=== PATIENT | female | born 1960 | race Caucasian/White ===

== ENCOUNTER 2021-05-13 08:04 | Emergency (ER) | payer MEDICARE, OTHER, SELFPAY ==
[2021-05-13 08:08] VITALS: BP 110/73; PULSE 105; RESP 16; TEMP 37.1; O2SAT 96; BMI 28.5
--- NOTE | 2021-05-13 08:24 | ED_ITS ---
HPI - COVID General: Chief Complaint: COVID symptoms Stated Complaint: chest pain, headache, vomiting. Time Seen by Provider: 05/13/21 08:24 Triage information: Has fever, cough or shortness of breath . No known COVID + exposure last 14 days History of Present Illness: HPI Narrative: Ms. Barnes is a 60-year-old lady who presents to the emergency department due to headache and chest pain. She reports 3-day history of primarily frontal headache which is moderate to severe in intensity. Onset was gradual and she does have a history of migraine headaches. Mild associated photosensitivity and sound sensitivity. No neck pain or meningismus. Additional she has had generalized malaise which is progressively worsened. Today she had subacute onset of chest pain pressure in the middle of her chest which is moderate to severe in intensity and not improved with nitroglycerin. There is mild tingling sensation of the right arm. 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 Overall the intensity symptoms is currently moderate. Course has persisted. No other specific changes in health, exacerbating, or relieving factors identified. MD complaint: has COVID symptoms Prior covid testing: no COVID 19 common symptoms: positive fatigue, headache(s) and chest tightness Onset (ago): day(s) Severity: severe and slowly worsening Pertinent comorbid conditions: diabetes, hypertension and heart disease COVID Results: SARS-CoV-2 Antigen (Rapid) Positive (Negative) H 05/13/21 08:45 05/13/21 Review of Systems General: Reports: 10 or more systems reviewed and unremarkable except in HPI and below Const: Reports: fatigue Neuro: Reports: headache(s) PFSH ED PFSH: Medical History (Updated 05/13/21 @ 14:48 by Bandar White MD) CAD (coronary artery disease) Diabetes HLD (hyperlipidemia) HTN (hypertension) Surgical History (Updated 05/13/21 @ 08:38 by Bandar White MD) H/O exploratory laparotomy H/O: hysterectomy History of coronary artery stent placement Hx of CABG Social History (Updated 05/13/21 @ 08:39 by Bandar White MD) Smoking and tobacco status: former smoker Physical Exam Const: COMMON NORMALS: alert GENERAL APPEARANCE: cooperative, well developed and ill appearing (Somewhat) HENMT: COMMON NORMALS: normocephalic and atraumatic HEAD & SCALP: normocephalic and atraumatic THROAT: posterior oropharynx normal Eye: COMMON NORMALS: conjunctivae normal CONJUNCTIVA: Yes conjunctivae normal SCLERA: sclerae normal Neck/C-Spine: COMMON NORMALS: supple GENERAL: Yes trachea midline Resp: COMMON NORMALS: normal respiratory effort EFFORT & INSPECTION: Yes able to speak in complete sentences AUSCULTATION: rhonchi lower bilaterally and diminished lung sounds Cardio: COMMON NORMALS: regular rhythm RATE: tachycardic RHYTHM: regular rhythm GI: COMMON NORMALS: Soft to palpation PALPATION: Yes Soft to palpation and No Tenderness to palpation present (GI) PERCUSSION: normal to percussion Extremity: GENERAL: Yes normal exam except as noted and No edema Neuro: COMMON NORMALS: moves all extremities SENSORIUM/ORIENTATION: Yes alert and No Orientation impaired Psych: COMMON NORMALS: mental status grossly normal and Normal thought process present THOUGHT PROCESS: Normal thought process present Course ED course: - Patient was seen and evaluated by me at bedside - Patient placed on cardiac monitors, IV access obtained - Initial evaluation notable for somewhat ill appearance as above -Symptom treatment ordered - Labs notable for normal white blood cell count, microcytic anemia without recent baseline. Metabolic panel without acute electrolyte derangement. Delta troponin is negative. BNP minimally elevated. Procalcitonin negative. The exact etiology of the patient's chest pain is unclear, in combination with shortness of breath and other symptoms there is clinical concern for pulmonary embolism and as such D-dimer will be ordered as the patient cannot be ruled low risk by PERC criteria. D-dimer was elevated. - Imaging notable for no acute finding on chest x-ray. Head CT ordered as the patient did not have improvement with initial round of medication for headache. No acute intracranial pathology. No evidence of pulmonary embolism on CT. - Patient is Covid positive. - EKG discussed with cardiology, similar to prior - Upon serial reexamination after treatment the patient was improved with additional treatment She is not requiring supplemental oxygen. Despite discharge recorded respiratory rate and the patient was not significantly tachypneic or in respiratory distress at any time during my examination and I believe that this is likely erroneous based on monitor reading. - Based on patient history, evaluation, labs, and imaging as interpreted the most likely cause of the patient's condition is COVID-19. - The results of ED evaluation were discussed with the patient including prescriptions and/or symptomatic cares (if applicable) including appropriate and responsible use, followup plan, and return precautions. The patient verbalized understanding and felt safe for discharge. - Patient discharged in satisfactory condition. Note: Click bubbles or prepopulated reddy in note writing are used for assistance with data collection and billing and are inherently more limited than narrative and other text portions of this note. Please use narrative for additional clinical history and defer to narrative/free test for any case of contradictory information. If information appears in only free text or click bubble it should be considered present or absent as reported. Please contact note medical underwriter for clarifications of clinical information or contradictory information. MDM is a brief summary, contradictory or erroneous seeming information should be clarified and full note should be reviewed. Vital Signs: Vital signs: Vital Signs Temperature 98.7 F 05/13/21 08:08 Pulse Rate 108 H 05/13/21 15:11 Respiratory Rate 27 H 05/13/21 15:11 Blood Pressure 122/70 05/13/21 15:11 Pulse Oximetry 97 05/13/21 15:11 MDM - COVID MDM Narrative Medical decision making narrative: 60-year-old lady with diabetes and CAD presenting with chest pain and headache associated with infectious symptoms. Found to be Covid positive. Negative cardiac evaluation and negative evaluation for pulmonary embolism. Mildly improved with symptom treatment. Satisfactory for discharge. Medical Records Attestation: I reviewed the patient's medical records. Lab Data Attestation: I reviewed the patient's lab results. Result diagrams: 05/13/21 08:35 05/13/21 08:35 Labs: Lab Results 05/13/21 05/13/21 05/13/21 08:35 08:35 08:35 WBC 5.9 10^3/uL 10^3/uL (4.0-10.0) RBC 4.05 10^6/uL L 10^6/uL (4.1-5.3) Hgb 9.5 g/dL L g/dL (11.5-15.3) Hct 31.7 % L % (37.0-47.0) MCV 78.3 fl L fl (81-99) MCH 23.5 pg L pg (28.0-34.0) MCHC 30.0 g/dL g/dL (30.0-36.0) RDW 17.2 % H % (12.1-15.1) Plt Count 189 10^3/cmm 10^3/cmm (130-400) MPV 10.5 fL H fL (7.4-10.4) Neut % (Auto) 79.6 % % Lymph % (Auto) 9.7 % % [place] % (Auto) 9.4 % % Eos % (Auto) 0.7 % % Baso % (Auto) 0.3 % % Neut # (Auto) 4.67 10^3/uL 10^3/uL (1.8-7.7) Lymph # (Auto) 0.6 10^3/uL L 10^3/uL (0.8-4.8) [place] # (Auto) 0.6 10^3/uL 10^3/uL (0.2-0.9) Eos # (Auto) 0.0 10^3/uL 10^3/uL (0.0-0.8) Baso # (Auto) 0.0 10^3/uL 10^3/uL (0.0-0.1) Nucleated RBC % (auto) 0 % % Nucleated RBCs # 0.0 /100WBC /100WBC PT 12.80 SECONDS SECONDS (12.1-14.9) INR 0.94 (0.8-1.2) APTT 25.3 SECONDS SECONDS (23.9-36.7) D-Dimer Sodium 138 mmol/L mmol/L (136-145) Potassium 4.3 mmol/L mmol/L (3.5-5.1) Chloride 103 mmol/L mmol/L (98-107) Carbon Dioxide 22 mmol/L mmol/L (22-29) Anion Gap 17.3 (5-19) BUN 9 mg/dL mg/dL (6-20) Creatinine 0.7 mg/dL mg/dL (0.5-0.9) GFR Calculation 85.6 mL/min L mL/min (90-130) Glucose 189 mg/dL H mg/dL (65-115) Calculated Osmolality 290 mOsm/kg mOsm/kg (285-295) Calcium 8.9 mg/dL mg/dL (8.5-10.5) Total Bilirubin 0.6 mg/dL mg/dL (0.15-1.2) AST 25 U/L U/L (0-32) ALT 26 U/L U/L (0-33) Alkaline Phosphatase 130 IU/L H IU/L (35-105) Troponin T Baseline Troponin T 120 Minute Delta Troponin T Troponin T Hi Sens 6Hr Troponin T Hi Sens 6Hr Delta C-Reactive Protein 13.9 mg/L H mg/L (0.0-4.9) NT-Pro-B Natriuret Pep 501 pg/mL H pg/mL (0-125) Total Protein 6.3 g/dL L g/dL (6.6-8.7) Albumin 4.0 g/dL g/dL (3.5-5.2) Globulin 2.3 g/dL g/dL (1.3-4.6) Procalcitonin 0.03 ng/mL ng/mL (0-0.5) SARS-CoV-2 Ag (Rapid) 05/13/21 05/13/21 05/13/21 08:35 08:35 08:45 WBC RBC Hgb Hct MCV MCH MCHC RDW Plt Count MPV Neut % (Auto) Lymph % (Auto) [place] % (Auto) Eos % (Auto) Baso % (Auto) Neut # (Auto) Lymph # (Auto) [place] # (Auto) Eos # (Auto) Baso # (Auto) Nucleated RBC % (auto) Nucleated RBCs # PT INR APTT D-Dimer 0.73 ug/mIFEU H ug/mIFEU (0-0.59) Sodium Potassium Chloride Carbon Dioxide Anion Gap BUN Creatinine GFR Calculation Glucose Calculated Osmolality Calcium Total Bilirubin AST ALT Alkaline Phosphatase Troponin T Baseline 10 ng/L ng/L (0-10) Troponin T 120 Minute Delta Troponin T Troponin T Hi Sens 6Hr Troponin T Hi Sens 6Hr Delta C-Reactive Protein NT-Pro-B Natriuret Pep Total Protein Albumin Globulin Procalcitonin SARS-CoV-2 Ag (Rapid) Positive H (Negative) 05/13/21 05/13/21 10:30 14:22 WBC RBC Hgb Hct MCV MCH MCHC RDW Plt Count MPV Neut % (Auto) Lymph % (Auto) [place] % (Auto) Eos % (Auto) Baso % (Auto) Neut # (Auto) Lymph # (Auto) [place] # (Auto) Eos # (Auto) Baso # (Auto) Nucleated RBC % (auto) Nucleated RBCs # PT INR APTT D-Dimer Sodium Potassium Chloride Carbon Dioxide Anion Gap BUN Creatinine GFR Calculation Glucose Calculated Osmolality Calcium Total Bilirubin AST ALT Alkaline Phosphatase Troponin T Baseline Troponin T 120 Minute 10.53 ng/L H ng/L (0-10) Delta Troponin T 0.53 ABS# ABS# (0-10) Troponin T Hi Sens 6Hr 8.90 ng/L ng/L (0-10) Troponin T Hi Sens 6Hr Delta -1.10 ng/L L ng/L (0-12) C-Reactive Protein NT-Pro-B Natriuret Pep Total Protein Albumin Globulin Procalcitonin SARS-CoV-2 Ag (Rapid) COVID Results: SARS-CoV-2 Antigen (Rapid) Positive (Negative) H 05/13/21 08:45 05/13/21 EKG Data EKG 1: Attestation: I personally reviewed and interpreted this EKG as follows: EKG interpretation date: 05/13/21 EKG interpretation time: 08:28 Ischemic changes: non-specific ST-T wave changes and other Interpretation: Twelve-lead EKG shows a regular rhythm at a rate of 101 is MN interval 163, QRS duration 87, QTc 409. Normal axis. Interpretation: Sinus rhythm. Nonspecific ST segment abnormalities. There is isolated ST elevation in aVR with multiple leads of ST depression. A picture of the EKG was sent to interventional cardiology on-call and I discussed the case with him. He recommends continued normal evaluation at this time. EKG 2: Attestation: I personally reviewed and interpreted this EKG as follows: EKG interpretation date: 05/13/21 EKG interpretation time: 12:43 Ischemic changes: non-specific ST-T wave changes Interpretation: Twelve-lead EKG shows a regular rhythm at a rate of 91. MN interval 158, QRS duration 92, QTc 417. Normal axis. Interpretation: Sinus rhythm. Similar to prior. Discharge Plan Discharge Patient Disposition: Home Clinical Impression: COVID-19, Headache, Microcytic anemia, Chest pain Condition: Stable Prescriptions: New Reglan 10 mg tablet 10 mg PO Q6H PRN (Reason: nausea and vomiting) Qty: 10 0RF Discharge Orders: Discharge ED (Routine); Ordered 05/13/21 Ordered By: Bandar White Discharge Diet: Usual diet Discharge Activity: Resume usual activity Patient Instructions: Acute Headache (ED), Anemia (ED), COVID-19 (Coronavirus Disease 2019) (ED), Opioid Safety Activity Restrictions/Additional Instructions: Thank you for visiting the emergency department. You were seen and evaluated for headache as well as chest pain. You were found to COVID-19 which likely explains some of your symptoms. Given your history chest pain does require further evaluation however this likely cannot occur until your COVID symptoms have improved. Please follow-up with your primary care provider. You will be referred for outpatient stress test and cardiology follow-up. Return to the emergency department for worsening symptoms or anything else that you are concerned about and feel needs emergency department evaluation. Coding Level of Care Code ED [employer] Dispatcher for Thor Garcia
--- NOTE | 2021-05-13 08:27 | XRR_ITS ---
PROCEDURE INFORMATION: Exam: XR Chest Exam date and time: 05/13/2021 8:27 AM Age: 60 years old Clinical indication: Angina pectoris; Prior surgery; Patient HX: Chest pain TECHNIQUE: Imaging protocol: XR of the chest. Views: 1 view. COMPARISON: CR Chest 1 [place] [id number] 02/09/2016 9:27 PM FINDINGS: Lungs: No pneumonia or pulmonary edema. Pleural spaces: No pleural effusion or pneumothorax. Heart/Mediastinum: There is a left epicardial fat pad. The cardiac silhouette is not enlarged. Prior CABG. Bones/joints: Prior sternotomy. Prior right proximal humeral ORIF. XR/XR chest 1V portable [id number] IMPRESSION: Postsurgical changes. No acute finding.
--- NOTE | 2021-05-13 08:28 | ECG_ITS ---
[facility] Test Date: 2021-05-13 Pat Name: Lucia Barnes Department: Room: Gender: Female Faith Doctor: : 1960 Requested By: Bandar White Order Number: [id number] Disha MD: Deacon Padilla M.D. Measurements Intervals [place] Rate: 101 P: 46 UT: 163 QRS: 33 QRSD: 87 T: 18 QT: 351 QTc: 455 Interpretive Statements SINUS TACHYCARDIA POSSIBLE RIGHT VENTRICULAR CONDUCTION DELAY [RSR (QR) IN V1/V2] ST DEPRESSION, CONSIDER SUBENDOCARDIAL INJURY [0.1+ mV ST DEPRESSION]/ischemia Compared to ECG 02/10/2016 03:03:16 ST (T wave) deviation now present Sinus rhythm no longer present ST-T changes persist Electronically Signed On 05-13-2021 14:17:27 JINRIKISHA DRIVER by Deacon Padilla M.D. [id number]
[2021-05-13] MEDS: aspirin 81 mg Chew Tablet 324 MG PO (08:38)
[2021-05-13 08:41] LABS: Basophils % 0.3 %; Eosinophils % 0.7 %; Hematocrit 31.7 % (37.0-47.0); Hemoglobin 9.5 g/dL (11.5-15.3); Lymphocytes # 0.6 10^3/uL (0.8-4.8); Lymphocytes % 9.7 %; Mean Corpuscular Hemoglobin 23.5 pg (28.0-34.0); Mean Corpuscular Volume 78.3 fl (81-99); Mean Platelet Volume 10.5 fL (7.4-10.4); Monocytes # 0.6 10^3/uL (0.2-0.9); Monocytes % 9.4 %; Neutrophils # 4.67 10^3/uL (1.8-7.7); Neutrophils % 79.6 %; Nucleated Red Blood Cells % 0 %; Platelet Count 189 10^3/cmm (130-400); Red Blood Count 4.05 10^6/uL (4.1-5.3); Red Cell Distribution Width 17.2 % (12.1-15.1); White Blood Count 5.9 10^3/uL (4.0-10.0)
[2021-05-13] MEDS: fentaNYL 50 mcg/mL INJ 2mL IVP ×2 (08:43→12:03)
[2021-05-13 08:48] VITALS: BP 135/76; PULSE 99; RESP 22; O2SAT 93; O2SAT 95
[2021-05-13 08:59] LABS: INR 0.94 (0.8-1.2)
[2021-05-13 09:00] LABS: Partial Thromboplastin Time 25.3 SECONDS (23.9-36.7)
[2021-05-13 09:11] LABS: Troponin(5th) Baseline 10 ng/L (0-10)
[2021-05-13 09:17] LABS: NT Pro B Type Natriuretic Pept 501 pg/mL (0-125); Procalcitonin 0.03 ng/mL (0-0.5)
[2021-05-13] MEDS: metoclopramide 5 mg/mL SDV 2 mL 10 MG IVP (09:19)
[2021-05-13] MEDS: diphenhydrAMINE 50 mg/mL SDV 1mL 25 MG IVP (09:19)
[2021-05-13 09:21] LABS: SARS Covid-2 Antigen Positive (Negative)
[2021-05-13] MEDS: sodium chloride 0.9% 500 ML 999 ML IV ×2 (09:21→12:02)
[2021-05-13] MEDS: magnesium sulfate premix 2 GM/50 ML PIGGYBACK IV (09:24)
[2021-05-13 09:28] LABS: Alanine Aminotransferase 26 U/L (0-33); Alkaline Phosphatase 130 IU/L (35-105); Anion Gap 17.3 (5-19); Aspartate Amino Transferase 25 U/L (0-32); Blood Urea Nitrogen 9 mg/dL (6-20); C Reactive Protein 13.9 mg/L (0.0-4.9); Calcium 8.9 mg/dL (8.5-10.5); Carbon Dioxide 22 mmol/L (22-29); Chloride 103 mmol/L (98-107); Globulin 2.3 g/dL (1.3-4.6); Glomerular Filtration Rate 85.6 mL/min (90-130); Glucose 189 mg/dL (65-115); Osmolality Calculated 290 mOsm/kg (285-295); Potassium 4.3 mmol/L (3.5-5.1); Sodium 138 mmol/L (136-145); Total Bilirubin 0.6 mg/dL (0.15-1.2); Total Protein 6.3 g/dL (6.6-8.7)
[2021-05-13 10:23] VITALS: BP 122/65; PULSE 87; RESP 24; O2SAT 96
--- NOTE | 2021-05-13 10:28 | ECG_ITS ---
[facility] Test Date: 2021-05-13 Pat Name: Lucia Barnes Department: Room: Gender: Female Review Rn: : 1960 Requested By: Bandar White Order Number: [id number] Disha MD: Deacon Padilla M.D. Measurements Intervals [place] Rate: 91 P: 34 IN: 158 QRS: 39 QRSD: 92 T: -67 QT: 368 QTc: 454 Interpretive Statements SINUS RHYTHM POSSIBLE RIGHT VENTRICULAR CONDUCTION DELAY [RSR (QR) IN V1/V2] ST DEVIATION AND MODERATE T-WAVE ABNORMALITY, CONSIDER ANTEROLATERAL ISCHEMIA [-0.1+ mV T-WAVE IN V3-V6] ST DEVIATION AND MODERATE T-WAVE ABNORMALITY, CONSIDER INFERIOR ISCHEMIA [-0.1+ mV T-WAVE IN II/aVF] Compared to ECG 05/13/2021 08:24:39 T-wave abnormality now present Possible ischemia now present Sinus tachycardia no longer present ST (T wave) deviation no longer present Electronically Signed On 05-14-2021 20:08:53 PHYSICIAN LIAISON by Deacon Padilla M.D. [id number]
[2021-05-13 10:57] LABS: Troponin 5 2HR 10.53 ng/L (0-10); Troponin 5 2HR Delta 0.53 ABS# (0-10)
[2021-05-13] MEDS: ketorolac 30 mg/mL INJ 15 MG IVP (12:02)
[2021-05-13 12:30] LABS: D Dimer 0.73 ug/mIFEU (0-0.59)
--- NOTE | 2021-05-13 12:32 | CTR_ITS ---
PROCEDURE INFORMATION: Exam: CT Head Without Contrast Exam date and time: 05/13/2021 12:32 PM Age: 60 years old Clinical indication: Pain; Headache; Additional info: Severe headache TECHNIQUE: Imaging protocol: Computed tomography of the head without contrast. Radiation optimization: All CT scans at this facility use at least one of these dose optimization techniques: automated exposure control; mA and/or kV adjustment per patient size (includes targeted exams where dose is matched to clinical indication); or iterative reconstruction. COMPARISON: CT head wo con* [id number] 01/02/2016 6:07 PM RADIATION DOSE METRICS: Total DLP (mGy-cm): 895.32 FINDINGS: Brain: Normal. No hemorrhage. Unremarkable white matter. No mass effect. Cerebral ventricles: No ventriculomegaly. Paranasal sinuses: Visualized sinuses are unremarkable. No fluid levels. Mastoid air cells: Visualized mastoid air cells are well aerated. Vasculature: Severe calcified intracranial atherosclerotic vessel disease. Bones/joints: Unremarkable. No acute fracture. Soft tissues: Unremarkable. CT/CT head wo con* [id number] IMPRESSION: No acute intracranial findings.
--- NOTE | 2021-05-13 12:32 | CTR_ITS ---
PROCEDURE INFORMATION: Exam: CTA Chest With Contrast Exam date and time: 05/13/2021 12:32 PM Age: 60 years old Clinical indication: Shortness of breath; Prior surgery; Surgery date: 6+ months; Surgery type: Shoulder, cabg; Patient HX: SOB, tachy, elev d-dimer, covid+; Additional info: D dimer elevated, tachycardia and tachypnea TECHNIQUE: Imaging protocol: Computed tomographic angiography of the chest with contrast. 3D rendering (Not supervised by radiologist): MIP and/or 3D reconstructed images were created by the technologist. Radiation optimization: All CT scans at this facility use at least one of these dose optimization techniques: automated exposure control; mA and/or kV adjustment per patient size (includes targeted exams where dose is matched to clinical indication); or iterative reconstruction. Contrast material: OMNI 350; Contrast volume: 73 ml; Contrast route: INTRAVENOUS (IV); COMPARISON: CR (CHEST, ) 05/13/2021 8:55 AM RADIATION DOSE METRICS: Total DLP (mGy-cm): 571.69 FINDINGS: Pulmonary arteries: Normal. No pulmonary emboli. Aorta: Unremarkable. No aortic aneurysm. No aortic dissection. Great vessels off aortic arch: There is a stent in the left subclavian vein. Artifact resulting from the stent makes evaluation for internal flow somewhat suboptimal. No definite filling defect is seen. Lungs: There are dependent atelectatic changes in the lungs. Pleural spaces: Unremarkable. No pneumothorax. No pleural effusion. Heart: Multivessel atherosclerotic disease which involves the coronary arteries. Lymph nodes: Unremarkable. No enlarged lymph nodes. Bones/joints: There are post sternotomy changes and postoperative changes in the anterior mediastinum. [place] screws are present in the right humeral head. Soft tissues: Unremarkable. CT/CT angio chest PE protcl [id number] IMPRESSION: 1. Multivessel atherosclerotic disease which involves the coronary arteries. 2. No evidence for pulmonary embolus.
[2021-05-13 13:02] VITALS: BP 127/80; PULSE 91; RESP 24; O2SAT 93
[2021-05-13] MEDS: iohexol 350 mg/mL 100 mL Btl IV (13:48)
[2021-05-13 15:11] VITALS: BP 122/70; PULSE 108; RESP 27; O2SAT 97
--- NOTE | 2021-05-18 11:38 | DCPLANNER ---
hedge fund manager had message to schedule an outpatient stress test, and a follow up appointment with [facility]. hedge fund manager called patient, she stated that she has a vice squad police officer that she sees, and will follow up with when she gets home. hedge fund manager will not order stress test, patient stated that she will follow up with her physician, and if he wants her to have the stress test, that he can order it.
== END 2021-05-13 15:15 | disposition home or self-care (01) ==
PROVIDERS: Emergency Provider Emergency Medicine
DX: U07.1 COVID-19 (principal); R07.9 Chest pain, unspecified; D50.9 Iron deficiency anemia, unspecified; I25.10 Atherosclerotic heart disease of native coronary artery without angina pectoris; E11.9 Type 2 diabetes mellitus without complications; E78.5 Hyperlipidemia, unspecified; I10 Essential (primary) hypertension; Z95.1 Presence of aortocoronary bypass graft; Z87.891 Personal history of nicotine dependence
CPT/HCPCS: 36415; 70450; 71045; 71275; 80053; 83880; 84145; 84484; 85025; 85378; 85610; 85730; 86140; 87426; 93005; 96365; 96375; 96376; 99284; J1200; J1885; J2765; J3010; J3475; J7040; Q9967

== ENCOUNTER 2021-05-19 21:35 | Inpatient (IN) | payer MEDICARE, OTHER, SELFPAY ==
--- NOTE | 2021-05-19 21:53 | XRR_ITS ---
PROCEDURE INFORMATION: Exam: XR Chest Exam date and time: 05/19/2021 9:53 PM Age: 60 years old Clinical indication: Cough and shortness of breath; Additional info: Short of breath, covid + TECHNIQUE: Imaging protocol: XR of the chest. Views: 1 view. COMPARISON: CR (CHEST, ) 05/13/2021 8:55 AM FINDINGS: Lungs: Patchy bilateral mixed interstitial and airspace infiltrates. Pleural spaces: Unremarkable. No pleural effusion. No pneumothorax. Heart/Mediastinum: Unremarkable. No cardiomegaly. Bones/joints: Sternotomy wires. XR/XR chest 1V portable [id number] IMPRESSION: Patchy bilateral mixed interstitial and airspace infiltrates.
[2021-05-19 21:55] VITALS: BP 113/70; PULSE 102; RESP 20; TEMP 39.3; O2SAT 94
[2021-05-19] MEDS: acetaminophen 500 mg Tablet 1000 MG PO (23:09)
--- NOTE | 2021-05-19 23:10 | PC.NURSE ---
medicated per order for fever. respirations even equal and fast. speech clear.
--- NOTE | 2021-05-19 23:18 | ED_ITS ---
Documented by User: PAVEL Candelaria 05/20/21 02:17 HPI - COVID General: Chief Complaint: COVID symptoms Stated Complaint: covid +, low 02 Time Seen by Provider: 05/19/21 23:18 Triage information: Has fever, cough or shortness of breath . Exposure to COVID + person last 14 days History of Present Illness: 60-year-old female comes in today with complaints of body aches, shortness of breath, and cough. Patient tested positive on 13 May for COVID-19. Patient has a extensive medical history for diabetes and coronary artery disease. Patient appears unwell but not toxic. Patient appears in mild pain. Patient has surgical history with coronary bypass and stent placement. COVID 19 common symptoms: positive fever(s), chills, dyspnea and body aches COVID Results: SARS-CoV-2 Antigen (Rapid) Positive (Negative) H 05/13/21 08:45 05/13/21 Review of Systems Const: Reports: fever(s), chills and body aches Resp: Reports: dyspnea PFSH ED PFSH: Medical History (Updated 05/20/21 @ 02:12 by PAVEL Candelaria) CAD (coronary artery disease) Diabetes HLD (hyperlipidemia) HTN (hypertension) Surgical History (Updated 05/13/21 @ 08:38 by Banadr White MD) H/O exploratory laparotomy H/O: hysterectomy History of coronary artery stent placement Hx of CABG Social History (Updated 05/13/21 @ 08:39 by Bandar White MD) Smoking and tobacco status: former smoker Physical Exam Const: COMMON NORMALS: alert HENMT: NOSE: Nasal discharge present Neck/C-Spine: COMMON NORMALS: full ROM Resp: COMMON NORMALS: normal respiratory effort and clear to auscultation bilaterally AUSCULTATION: clear to auscultation bilaterally Cardio: COMMON NORMALS: regular rate and regular rhythm RATE: regular rate RHYTHM: regular rhythm Extremity: COMMON NORMALS: full ROM Neuro: SENSORIUM/ORIENTATION: Yes alert Psych: COMMON NORMALS: cooperative Skin: COMMON NORMALS: no rashes or lesions noted GENERAL SKIN EXAM: no rashes or lesions noted Course Reevaluation(s): Reevaluation #1: 0133, patient's blood pressure is running low with 87/50. We will continue IV fluids. Chest x-ray showed a pneumonia. The daughter had reported that the patient been spitting up blood we did note on her CBC that there was some decline in her hemoglobin from 9.6-8.9. I reviewed this with Dr. Ball who recommended that we go ahead and recheck patient's CTA for PE protocol to rule out pulmonary embolism. I spoke with the family, her daughter, and noted that patient does take Plavix 75 mg which may contribute to her bleeding. Med list was put into the chart. Vital Signs: Vital signs: Vital Signs Temperature 102.7 F H 05/19/21 21:55 Pulse Rate 78 05/20/21 02:29 Respiratory Rate 18 05/20/21 02:29 Blood Pressure 103/62 05/20/21 02:29 Pulse Oximetry 96 05/20/21 02:29 [facility] - COVID Medical Decision Making Patient came in tonight for worsening symptoms due to COVID-19. Patient reports for the last 2 days she has had an increasing weakness, a spike in her fever, and more shortness of breath. Patient appears unwell. Patient appears in no respiratory distress at rest. Lungs have some decreased sounds in the bases. Skin is warm and dry and color is slightly pale. Vital signs notes a blood pressure of 113/70, pulse of 102, and a temperature of 102.7. Differential diagnosis includes pneumonia due to Covid, dehydration, respiratory failure. Chest x-ray showed patchy infiltrates bilateral in the lungs. CBC showed a white count of 3.9, and a hemoglobin 8.9 which is declined both since her last blood work on the . CMP had a sodium of 135, CRP is elevated up to 95, and D-dimer had increased to 1.0. Family had said that patient had been spitting up some blood after 1 L of IV fluid it was noted patient's blood pressure had dropped to 90 systolic. Review of patient home medication notes that she is routinely on Plavix. Patient's blood pressure did not recover after IV fluids and I feel patient probably is decompensating due to the COVID-19 and pneumonia. Blood cultures were ordered and I discussed patient with Dr. Ball whom we feel that patient probably needs admission for IV fluids, remdesivir treatment, and monitoring. CTA chest for PE protocol was ordered. Lab Data : 05/20/21 00:14 05/20/21 00:14 Radiology Impressions Chest X-Ray 05/19/21 21:53 IMPRESSION: Patchy bilateral mixed interstitial and airspace infiltrates. Chest CTA 05/20/21 01:17 IMPRESSION: 1. Geographic ground-glass opacities with some crazy paving and consolidation consistent with [id number] bilateral COVID-19 pneumonia versus other pneumonia. 2. Stable CABG procedure. 3. No pulmonary embolus or aortic dissection. Laboratory Results WBC 3.9 10^3/uL (4.0-10.0) L 05/20/21 00:14 RBC 3.75 10^6/uL (4.1-5.3) L 05/20/21 00:14 Hgb 8.9 g/dL (11.5-15.3) L 05/20/21 00:14 Hct 29.0 % (37.0-47.0) L 05/20/21 00:14 MCV 77.3 fl (81-99) L 05/20/21 00:14 MCH 23.7 pg (28.0-34.0) L 05/20/21 00:14 MCHC 30.7 g/dL (30.0-36.0) 05/20/21 00:14 RDW 17.5 % (12.1-15.1) H 05/20/21 00:14 Plt Count 176 10^3/cmm (130-400) 05/20/21 00:14 MPV 10.0 fL (7.4-10.4) 05/20/21 00:14 Neut % (Auto) 72.8 % 05/20/21 00:14 Lymph % (Auto) 20.5 % 05/20/21 00:14 [place] % (Auto) 4.9 % 05/20/21 00:14 Eos % (Auto) 0.0 % 05/20/21 00:14 Baso % (Auto) 0.3 % 05/20/21 00:14 Neut # (Auto) 2.85 10^3/uL (1.8-7.7) 05/20/21 00:14 Lymph # (Auto) 0.8 10^3/uL (0.8-4.8) 05/20/21 00:14 [place] # (Auto) 0.2 10^3/uL (0.2-0.9) 05/20/21 00:14 Eos # (Auto) 0.0 10^3/uL (0.0-0.8) 05/20/21 00:14 Baso # (Auto) 0.0 10^3/uL (0.0-0.1) 05/20/21 00:14 Nucleated RBC % (auto) 0 % 05/20/21 00:14 Nucleated RBCs # 0.0 /100WBC 05/20/21 00:14 D-Dimer 1.08 ug/mIFEU (0-0.59) H 05/20/21 00:14 Sodium 135 mmol/L (136-145) L 05/20/21 00:14 Potassium 3.5 mmol/L (3.5-5.1) 05/20/21 00:14 Chloride 98 mmol/L (98-107) 05/20/21 00:14 Carbon Dioxide 22 mmol/L (22-29) 05/20/21 00:14 Anion Gap 18.5 (5-19) 05/20/21 00:14 BUN 7 mg/dL (6-20) 05/20/21 00:14 Creatinine 0.6 mg/dL (0.5-0.9) 05/20/21 00:14 GFR Calculation 102.3 mL/min (90-130) 05/20/21 00:14 Glucose 101 mg/dL (65-115) 05/20/21 00:14 Calculated Osmolality 278 mOsm/kg (285-295) L 05/20/21 00:14 Calcium 8.3 mg/dL (8.5-10.5) L 05/20/21 00:14 Total Bilirubin 0.4 mg/dL (0.15-1.2) 05/20/21 00:14 AST 45 U/L (0-32) H 05/20/21 00:14 ALT 29 U/L (0-33) 05/20/21 00:14 Alkaline Phosphatase 165 IU/L (35-105) H 05/20/21 00:14 C-Reactive Protein 95.7 mg/L (0.0-4.9) H 05/20/21 00:14 Total Protein 6.1 g/dL (6.6-8.7) L 05/20/21 00:14 Albumin 3.5 g/dL (3.5-5.2) 05/20/21 00:14 Globulin 2.6 g/dL (1.3-4.6) 05/20/21 00:14 SARS-CoV-2 Antigen (Rapid) Positive (Negative) H 05/13/21 08:45 05/13/21 Discharge Plan Discharge Patient Disposition: Admitted As Inpatient Clinical Impression: 2019 novel coronavirus-infected pneumonia (NCIP), Hypotension Condition: Serious Discharge Diet: Usual diet Discharge Activity: Increase activity as tolerated Coding Level of Care Code ED Plisse Machine Operator for Chg Fwd Exam Comprehensive Medical Decision Making Moderate Complexity Time Spent (min) 40 Documented by User: Willie Ball DO 05/20/21 03:32 HPI - COVID General: Chief Complaint: COVID symptoms Stated Complaint: covid +, low 02 Time Seen by Provider: 05/19/21 23:18 COVID Results: SARS-CoV-2 Antigen (Rapid) Positive (Negative) H 05/13/21 08:45 05/13/21 PFS ED PFSH: Medical History (Updated 05/20/21 @ 02:12 by PAVEL Candelaria) CAD (coronary artery disease) Diabetes HLD (hyperlipidemia) HTN (hypertension) Surgical History (Updated 05/13/21 @ 08:38 by Bandar White MD) H/O exploratory laparotomy H/O: hysterectomy History of coronary artery stent placement Hx of CABG Social History (Updated 05/13/21 @ 08:39 by Bandar White MD) Smoking and tobacco status: former smoker Course Vital Signs: Vital signs: Vital Signs Temperature 102.7 F H 05/19/21 21:55 Pulse Rate 78 05/20/21 02:29 Respiratory Rate 18 05/20/21 02:29 Blood Pressure 103/62 05/20/21 02:29 Pulse Oximetry 96 05/20/21 02:29 MDM - COVID Medical Decision Making Patient came in tonight for worsening symptoms due to COVID-19. Patient reports for the last 2 days she has had an increasing weakness, a spike in her fever, and more shortness of breath. Patient appears unwell. Patient appears in no respiratory distress at rest. Lungs have some decreased sounds in the bases. Skin is warm and dry and color is slightly pale. Vital signs notes a blood pressure of 113/70, pulse of 102, and a temperature of 102.7. Differential diagnosis includes pneumonia due to Covid, dehydration, respiratory failure. Chest x-ray showed patchy infiltrates bilateral in the lungs. CBC showed a white count of 3.9, and a hemoglobin 8.9 which is declined both since her last blood work on the . CMP had a sodium of 135, CRP is elevated up to 95, and D-dimer had increased to 1.0. Family had said that patient had been spitting up some blood after 1 L of IV fluid it was noted patient's blood pressure had dropped to 90 systolic. Review of patient home medication notes that she is routinely on Plavix. Patient's blood pressure did not recover after IV fluids and I feel patient probably is decompensating due to the COVID-19 and pneumonia. Blood cultures were ordered and I discussed patient with Dr. Ball whom we feel that patient probably needs admission for IV fluids, remdesivir treatment, and monitoring. CTA chest for PE protocol was ordered. This patient was originally seen by PAVEL Chen.? I agree with his history, evaluation, and treatment. I received the patient from him in checkout. This lady has patchy groundglass infiltrates in the bilateral lungs on CTA. Negative for PE. She is hypotensive, with pressures in the 80s over 40s, 90s over 50s she has received some fluid. She is on oxygen now. Saturations are 95%. She is received remdesivir here. She will be admitted. Lab Data : 05/20/21 00:14 05/20/21 00:14 Radiology Impressions Chest X-Ray 05/19/21 21:53 IMPRESSION: Patchy bilateral mixed interstitial and airspace infiltrates. Chest CTA 05/20/21 01:17 IMPRESSION: 1. Geographic ground-glass opacities with some crazy paving and consolidation consistent with [id number]-na-pnlexdbs bilateral COVID-19 pneumonia versus other pneumonia. 2. Stable CABG procedure. 3. No pulmonary embolus or aortic dissection. Laboratory Results WBC 3.9 10^3/uL (4.0-10.0) L 05/20/21 00:14 RBC 3.75 10^6/uL (4.1-5.3) L 05/20/21 00:14 Hgb 8.9 g/dL (11.5-15.3) L 05/20/21 00:14 Hct 29.0 % (37.0-47.0) L 05/20/21 00:14 MCV 77.3 fl (81-99) L 05/20/21 00:14 MCH 23.7 pg (28.0-34.0) L 05/20/21 00:14 MCHC 30.7 g/dL (30.0-36.0) 05/20/21 00:14 RDW 17.5 % (12.1-15.1) H 05/20/21 00:14 Plt Count 176 10^3/cmm (130-400) 05/20/21 00:14 MPV 10.0 fL (7.4-10.4) 05/20/21 00:14 Neut % (Auto) 72.8 % 05/20/21 00:14 Lymph % (Auto) 20.5 % 05/20/21 00:14 [place] % (Auto) 4.9 % 05/20/21 00:14 Eos % (Auto) 0.0 % 05/20/21 00:14 Baso % (Auto) 0.3 % 05/20/21 00:14 Neut # (Auto) 2.85 10^3/uL (1.8-7.7) 05/20/21 00:14 Lymph # (Auto) 0.8 10^3/uL (0.8-4.8) 05/20/21 00:14 [place] # (Auto) 0.2 10^3/uL (0.2-0.9) 05/20/21 00:14 Eos # (Auto) 0.0 10^3/uL (0.0-0.8) 05/20/21 00:14 Baso # (Auto) 0.0 10^3/uL (0.0-0.1) 05/20/21 00:14 Nucleated RBC % (auto) 0 % 05/20/21 00:14 Nucleated RBCs # 0.0 /100WBC 05/20/21 00:14 D-Dimer 1.08 ug/mIFEU (0-0.59) H 05/20/21 00:14 Sodium 135 mmol/L (136-145) L 05/20/21 00:14 Potassium 3.5 mmol/L (3.5-5.1) 05/20/21 00:14 Chloride 98 mmol/L (98-107) 05/20/21 00:14 Carbon Dioxide 22 mmol/L (22-29) 05/20/21 00:14 Anion Gap 18.5 (5-19) 05/20/21 00:14 BUN 7 mg/dL (6-20) 05/20/21 00:14 Creatinine 0.6 mg/dL (0.5-0.9) 05/20/21 00:14 GFR Calculation 102.3 mL/min (90-130) 05/20/21 00:14 Glucose 101 mg/dL (65-115) 05/20/21 00:14 Calculated Osmolality 278 mOsm/kg (285-295) L 05/20/21 00:14 Calcium 8.3 mg/dL (8.5-10.5) L 05/20/21 00:14 Total Bilirubin 0.4 mg/dL (0.15-1.2) 05/20/21 00:14 AST 45 U/L (0-32) H 05/20/21 00:14 ALT 29 U/L (0-33) 05/20/21 00:14 Alkaline Phosphatase 165 IU/L (35-105) H 05/20/21 00:14 C-Reactive Protein 95.7 mg/L (0.0-4.9) H 05/20/21 00:14 Total Protein 6.1 g/dL (6.6-8.7) L 05/20/21 00:14 Albumin 3.5 g/dL (3.5-5.2) 05/20/21 00:14 Globulin 2.6 g/dL (1.3-4.6) 05/20/21 00:14 SARS-CoV-2 Antigen (Rapid) Positive (Negative) H 05/13/21 08:45 05/13/21 Discharge Plan Discharge Patient Disposition: Admitted As Inpatient Clinical Impression: 2019 novel coronavirus-infected pneumonia (NCIP), Hypotension Condition: Serious Discharge Diet: Usual diet Discharge Activity: Increase activity as tolerated Coding Level of Care Code ED Plisse Machine Operator for g Fwd Exam Comprehensive Medical Decision Making Moderate Complexity Time Spent (min) 40
[2021-05-20] VITALS (85 sets, daily range): BP systolic 66–145; BP diastolic 41–110; PULSE 57–123; RESP 9–34; TEMP 37–39.3; O2SAT 88–99
[2021-05-20] MEDS: dexamethasone 10 mg/mL INJ IVP (00:18)
[2021-05-20] MEDS: sodium chloride 0.9% 1,000 ML 999 ML IV (00:18)
[2021-05-20 00:21] LABS: Basophils % 0.3 %; Hemoglobin 8.9 g/dL (11.5-15.3); Lymphocytes # 0.8 10^3/uL (0.8-4.8); Lymphocytes % 20.5 %; Mean Corpuscular HGB Conc 30.7 g/dL (30.0-36.0); Mean Corpuscular Hemoglobin 23.7 pg (28.0-34.0); Mean Corpuscular Volume 77.3 fl (81-99); Monocytes # 0.2 10^3/uL (0.2-0.9); Monocytes % 4.9 %; Neutrophils # 2.85 10^3/uL (1.8-7.7); Neutrophils % 72.8 %; Nucleated Red Blood Cells % 0 %; Platelet Count 176 10^3/cmm (130-400); Red Blood Count 3.75 10^6/uL (4.1-5.3); Red Cell Distribution Width 17.5 % (12.1-15.1); White Blood Count 3.9 10^3/uL (4.0-10.0)
[2021-05-20 00:38] LABS: D Dimer 1.08 ug/mIFEU (0-0.59)
[2021-05-20] MEDS: albuterol 8 gm MDI 2 PUFF INHALATION (00:50)
[2021-05-20 00:54] LABS: Alanine Aminotransferase 29 U/L (0-33); Albumin Level 3.5 g/dL (3.5-5.2); Alkaline Phosphatase 165 IU/L (35-105); Anion Gap 18.5 (5-19); Aspartate Amino Transferase 45 U/L (0-32); Blood Urea Nitrogen 7 mg/dL (6-20); C Reactive Protein 95.7 mg/L (0.0-4.9); Calcium 8.3 mg/dL (8.5-10.5); Carbon Dioxide 22 mmol/L (22-29); Chloride 98 mmol/L (98-107); Globulin 2.6 g/dL (1.3-4.6); Glomerular Filtration Rate 102.3 mL/min (90-130); Glucose 101 mg/dL (65-115); Osmolality Calculated 278 mOsm/kg (285-295); Potassium 3.5 mmol/L (3.5-5.1); Sodium 135 mmol/L (136-145); Total Bilirubin 0.4 mg/dL (0.15-1.2); Total Protein 6.1 g/dL (6.6-8.7)
--- NOTE | 2021-05-20 01:17 | CTR_ITS ---
PROCEDURE INFORMATION: Exam: CTA Chest With Contrast Exam date and time: 05/20/2021 1:17 AM Age: 60 years old Clinical indication: Abnormal findings; Abnormal diagnostic tests; Elevated d-dimer; Cough and shortness of breath; Prior surgery; Surgery type: Cabg; Patient HX: Hemoptysis with SOB. Elevated ddimer. Covid +; Additional info: Spitting up blood, elevated TECHNIQUE: Imaging protocol: Computed tomographic angiography of the chest with contrast. 3D rendering (Not supervised by radiologist): MIP and/or 3D reconstructed images were created by the technologist. Radiation optimization: All CT scans at this facility use at least one of these dose optimization techniques: automated exposure control; mA and/or kV adjustment per patient size (includes targeted exams where dose is matched to clinical indication); or iterative reconstruction. Contrast material: OMNI 350; Contrast volume: 57 ml; Contrast route: INTRAVENOUS (IV); COMPARISON: CT angio chest PE protcl [id number] 05/13/2021 1:48 PM RADIATION DOSE METRICS: Total DLP (mGy-cm): 518.74 FINDINGS: Pulmonary arteries: No pulmonary embolus or aortic dissection. Aorta: See Pulmonary arteries finding. Lungs: Geographic ground-glass opacities with some crazy paving and consolidation consistent with [id number] bilateral COVID-19 pneumonia versus other pneumonia. Pleural spaces: Unremarkable. No pneumothorax. No pleural effusion. Heart: Stable CABG procedure. Lymph nodes: Unremarkable. No enlarged lymph nodes. Bones/joints: Unremarkable. No acute fracture. Soft tissues: Unremarkable. CT/CT angio chest PE protcl [id number] IMPRESSION: 1. Geographic ground-glass opacities with some crazy paving and consolidation consistent with [id number] bilateral COVID-19 pneumonia versus other pneumonia. 2. Stable CABG procedure. 3. No pulmonary embolus or aortic dissection.
[2021-05-20] MEDS: sodium chloride 0.9% 1,000 ML 125 ML IV ×3 (01:30→17:43)
[2021-05-20] MEDS: pantoprazole 40 mg SDV IVP ×2 (01:34→17:40)
[2021-05-20] MEDS: iohexol 350 mg/mL 100 mL Btl IV (02:13)
[2021-05-20] MEDS: remdesivir 200 MG in sodium chloride 0.9% (100 ml) 60 ML 100 MG IV (03:04)
--- NOTE | 2021-05-20 04:18 | PM.HP ---
Providers/Chief Complaint Chief Complaint: covid + on 05/13/21, low 02 History of Present Illness Lucia Barnes is a 60 year old female with a past medical history of noninsulin-dependent type 2 diabetes mellitus, hypertension, hyperlipidemia, hypothyroidism, CAD status post CABG, chronic anemia, who presents to [facility] due to shortness of breath fatigue, malaise, chest pain, lightheadedness, poor appetite. Patient tells me that she tested positive for Covid roughly a week ago, since that she has had progressively increased fatigue, malaise, poor appetite, lightheadedness. She also developed increasing he is more short of breath, short of breath with exertion, with low-grade fevers. Substernal chest pain, nonradiating, no lightheadedness, dizziness, no diaphoresis. She denies any bloody or black stools, no hemoptysis, no calf pain, no calf swelling. In the emergency room patient was found to be COVID-19 positive, febrile, requiring 2 L, CT angiogram negative for pulmonary emboli, patient was going to be discharged home, when she started develop hypotension, receiving a fluid bolus, MAP borderline at 65, alert oriented x3, her only complaint is fatigue and lightheadedness. Review of Systems Const: Reports: fever(s), chills, fatigue and malaise Eyes: Denies: change in vision or blurry vision ENMT: Denies: nasal congestion Card: Reports: chest pain, lightheadedness and dyspnea on exertion; Denies: edema or syncope Resp: Denies: dyspnea, productive cough, non-productive cough or wheezing GI: Denies: abdominal pain, nausea, vomiting, hematemesis, diarrhea, constipation, hematochezia or melena : Denies: flank pain, dysuria or urinary frequency Musc: Denies: neck pain or back pain Skin/Breast: Denies: rash Neuro: Reports: dizziness; Denies: headache(s) or vertigo Psych: Denies: anxiety or depression Endo: Denies: polyuria or polydipsia Medications/Allergies Home Medications Medication Instructions Recorded Confirmed Last Taken Type metoclopramide HCl 10 mg tablet 10 mg PO Q6H PRN #10 tab 05/13/21 Unknown Rx (Reglan) Allergies Allergy/AdvReac Type Severity Reaction Status Date / Time morphine Allergy ADR-Vomitin Verified 05/19/21 21:58 g ondansetron [From Zofran] Allergy ADR-Vomitin Verified 05/19/21 21:58 g Penicillins Allergy ALGY-Difficulty Verified 05/19/21 21:58 Breathing PFSH Acute PFSH: Medical History (Updated 05/20/21 @ 04:31 by Segundo Crawford MD) CAD (coronary artery disease) Diabetes HLD (hyperlipidemia) HTN (hypertension) Surgical History (Updated 05/13/21 @ 08:38 by Bandar White MD) H/O exploratory laparotomy H/O: hysterectomy History of coronary artery stent placement Hx of CABG Family History (Updated 05/20/21 @ 04:19 by Segundo Crawford MD) Other CAD (coronary artery disease) Social History (Updated 05/20/21 @ 04:20 by Segundo Crawford MD) Smoking and tobacco status: former smoker Alcohol intake: never Substance/Drug Use: never Vitals/I&O/Wt Last Vital Signs Temp 102.7 F H 05/19/21 21:55 Pulse 78 05/20/21 02:29 Resp 18 05/20/21 02:29 BP 103/62 05/20/21 02:29 Pulse Ox 96 05/20/21 02:29 05/19/21 05/19/21 05/20/21 14:59 22:59 06:59 Intake Total 1060 / 1060 Balance 1060 / 1060 Weight last 48 hrs Weight 80.286 kg Physical Exam Const: COMMON NORMALS: no acute distress and patient oriented x3 HENMT: COMMON NORMALS: normocephalic HEAD & SCALP: normocephalic Eye: COMMON NORMALS: Equal, round and reactive pupils present Neck/C-Spine: COMMON NORMALS: no JVD Lymph: LYMPHATIC: no lymphadenopathy noted Resp: COMMON NORMALS: normal respiratory effort, No retractions, No use of accessory muscles and clear to auscultation bilaterally AUSCULTATION: diminished lung sounds diffuse Cardio: COMMON NORMALS: no JVD, regular rate, regular rhythm, S1 normal heart sound present and S2 normal heart sound present RATE: regular rate RHYTHM: regular rhythm HEART SOUNDS: S1 normal heart sound present and S2 normal heart sound present GI: COMMON NORMALS: Normal to inspection, nondistended, normoactive bowel sounds present, Soft to palpation, non-tender, No hepatosplenomegaly present, no masses and no bruits PALPATION: Yes Soft to palpation and Yes No hepatosplenomegaly present Back/Pelvis: COMMON NORMALS: no CVA tenderness Extremity: COMMON NORMALS: capillary refill normal, no clubbing, cyanosis or edema, no calf tenderness and no pedal edema Neuro: COMMON NORMALS: patient oriented x3 Psych: COMMON NORMALS: mental status grossly normal Skin: COMMON NORMALS: turgor normal and no jaundice NARRATIVE SKIN EXAM: Has conjunctival pallor Data : 05/20/21 00:14 05/20/21 00:14 Micro: Microbiology 05/20/21 00:14 Blood Culture - Preliminary Blood SPECIMEN COLLECTED 05/20/21 00:00 Blood Culture - Preliminary Blood SPECIMEN COLLECTED A&P Assessment and plan (1) 2019 novel coronavirus-infected pneumonia (NCIP): Status: Acute (2) Hypotension: Status: Acute (3) Pneumonia due to COVID-19 virus: Status: Acute (4) Microcytic anemia: Status: Acute (5) Chest pain: Status: Acute (6) CAD (coronary artery disease): Status: Acute (7) Diabetes: Status: Acute (8) HLD (hyperlipidemia): Status: Acute (9) HTN (hypertension): Status: Acute (10) Hypothyroidism: Status: Acute (11) Sepsis: Status: Acute (12) Multifocal pneumonia: Status: Acute Plan COVID-19 pneumonia -With concern for underlying multifocal pneumonia Plan -CT angiogram showing diffuse groundglass opacities, bilateral consolidations -Remdesivir day 1 of 5 -Decadron day 1 of 10 -Broad-spectrum antibiotic therapy Rocephin and azithromycin given consolidations -Budesonide, ipratropium -Vitamin C, zinc, vitamin D - follow sputum cultures, blood cultures, urine bacterial antigens -Follow urine culture, UA -SCDs for DVT prophylaxis, Lovenox relatively contraindicated given anemia -Full code Hypotension -Concerning for underlying sepsis associate with COVID-19 and multifocal pneumonia -Has received sepsis bolus -MAP still borderline at 65 -Continue normal saline, midodrine -If maps remain greater than 65, can safely moved to general medical floors, if they drop below 65 we will have to moved to the ICU for Levophed Multifocal pneumonia as above Type 2 diabetes mellitus, A1c, low-dose sliding scale Hypothyroidism, will have to call patient's pharmacy for dosing CAD status post CABG, aspirin, Plavix Chest pain complaints -Serial troponins, serial EKGs, telemetry monitoring -Aspirin, Plavix, statin Acute on chronic anemia -Hemoglobin 8.9 -Is on aspirin, Plavix -No complaints of bloody or black stools -Continue Protonix 40 IV twice daily, Carafate -Ferritin, iron,'s Hemoccult stool -For now hold off on Lovenox for DVT prophylaxis Attestations Medical Necessity Statement*: Patient requires hospitalization, inpatient, greater than 2 midnights, COVID-19 pneumonia, hypotension, sepsis Critical Care Time: 35 Coding Level of Care Code Acute Commercial Sales Consultant for g Fwd History Comprehensive Medical Decision Making High Complexity Diagnoses 2019 novel coronavirus-infected pneumonia (NCIP) U07.1; J12.82 Hypotension I95.9 Pneumonia due to COVID-19 virus U07.1; J12.82 Microcytic anemia D50.9 Chest pain R07.9 CAD (coronary artery disease) I25.10 Diabetes E11.9 HLD (hyperlipidemia) E78.5 HTN (hypertension) I10 Hypothyroidism E03.9 Sepsis A41.9 Multifocal pneumonia J18.9 Time Spent (min) 55
[2021-05-20] MEDS: midodrine 5 mg TABLET 10 MG PO ×3 (05:07→21:36)
[2021-05-20] MEDS: cefTRIAXone 1,000 MG in sodium chloride 0.9% (plus) 50 ML 100 MG IV (05:09)
[2021-05-20 05:32] LABS: Add Urine Microscopic? NO; Charge for UA Resulting for Rev
[2021-05-20 05:37] LABS: Bilirubin Urine Neg (Negative); Blood Urine Neg (Negative); Glucose Urine UA Norm (Normal); Ketones Urine Negative (Negative); Leukocyte Esterase Urine Negative (Negative); Nitrate Urine Negative (Negative); Protein Urine Neg (Negative); Specific Gravity, Urine 1.005 (1.005-1.030); Urine Appearance Clear (CLEAR); Urine Color Yellow (Yellow); Urobilinogen Urine Norm (Negative); pH Urine 5 (5-7)
--- NOTE | 2021-05-20 05:46 | PC.PHAR ---
Pharmacokinetic dosing service Date: 05/20/20 Time: 529 Objective: Patient: Lucia Barnes Floor: ED-16 Age: 60 yo Serum creatinine: 0.6 mg/dL Height: 66.0 Inches Weight (kg): 80.286 Diagnosis: Relevant medical/social history: Cultures and sensitivities: Other labs: Assessment: IBW (kg): 59.30 Dosing wt(kg): 80.286 Estimated Creatinine clearance (ml/min): 94.5 CRCL method: Cockcroft and Gault using ibw(default). Drug selected: Vancomycin Loading dose (mg): 0 Vd (liters): 72.3 (factor used: 0.9 L/kg) Chemo (hr-1): 0.083 Half life (hrs): 8.35 Recommended dose: 1250 mg Interval: 12 hrs Infusion time (hrs): 1.5 Predicted peak (mcg/mL): 25.8 Predicted trough (mcg/mL): 10.79 Total body weight is being used for vancomycin dosing. Renal function is stable [ ] /unstable [ ] Recommendations: Give Vancomycin 1250 mg q 12 hrs with an expected Cpeak of 25.8 mcg/ml and an expected Ctrough of 10.79 mcg/ml Renal dosing of other antibiotics (review renal dosing of other medications and list guidelines here): Thank you for the consult, will continue to follow. Signature: Yolanda Aiken [facility]
[2021-05-20] MEDS: azithromycin 500 MG in sodium chloride 0.9% 250 ML 250 MG IV (05:55)
--- NOTE | 2021-05-20 06:05 | ECG_ITS ---
[facility] [place] [facility] Date: 2021-05-20 Pat Name: Lucia Barnes Department: Room: EDIP Gender: Female Energy Management Specialist: : [id number] Requested By: Segundo Crawford Order Number: [id number] Reading MD: BERTHA LOPEZ Measurements Intervals H[place] Rate: 65 P: 54 FL: 146 QRS: 17 QRSD: 99 T: 91 QT: 428 QTc: 446 Interpretive Statements SINUS RHYTHM POSSIBLE LATERAL MYOCARDIAL INFARCTION , OF INDETERMINATE AGE [30 ms Q WAVE IN I/aVL/V5/V6] MODERATE T-WAVE ABNORMALITY, CONSIDER ANTERIOR ISCHEMIA [-0.1+ mV T-WAVE IN V3/V4] MODERATE T-WAVE ABNORMALITY, CONSIDER INFERIOR ISCHEMIA [-0.1+ mV T-WAVE IN II/aVF] Compared to ECG 05/13/2021 12:41:54 Myocardial infarct finding now present T-wave abnormality still present Possible ischemia still present Electronically Signed On 05-20-2021 17:46:35 DIRECTOR OPERATIONS BROADCAST by BERTHA LOPEZ [email or web address]
[2021-05-20] MEDS: vancomycin 1,250 MG/250 ML PIGGYBACK 250 MG IV (07:21)
[2021-05-20] MEDS: sucralfate 1 gm Tablet PO ×4 (07:22→21:37)
[2021-05-20 07:31] LABS: Glucose Point of Care 241 mg/dL (70-110)
[2021-05-20 07:35] LABS: Troponin 5 2HR 24.07 ng/L (0-10)
[2021-05-20] MEDS: budesonide 0.5 mg/2 mL Neb INHALATION ×2 (08:02→20:07)
[2021-05-20] MEDS: ipratropium-albuterol 3 mL Neb INHALATION ×4 (08:02→20:07)
[2021-05-20 08:06] LABS: Lactic Sepsis W/Reflex 2.2 mmol/L (0.5-2.2)
[2021-05-20 08:17] LABS: NT Pro B Type Natriuretic Pept 163 pg/mL (0-125); Procalcitonin 0.32 ng/mL (0-0.5); Thyroid Stimulating Hormone 1.48 uIU/mL (0.27-4.20)
[2021-05-20 08:22] LABS: Troponin(5th) Baseline 41 ng/L (0-10)
[2021-05-20 08:24] LABS: Troponin 5 2HR Delta -16.93 ABS# (0-10)
[2021-05-20 08:26] LABS: Estmated Average Glucose 148; Hemoglobin A1C 6.8 % (4.0-6.0)
[2021-05-20 08:29] LABS: Ferritin 148 ng/mL (15-150); Iron 11 ug/dL (37-145); Magnesium 1.3 mg/dL (1.7-2.3); Percent Saturation 3.9 % (20-50); Total Iron Binding Capacity 278 mcg/dl; Unsaturated Iron Binding 267 ug/dL (112-347)
[2021-05-20] MEDS: insulin lispro 100 unit/1 mL SUBCUT ×3 (08:44→21:37)
[2021-05-20] MEDS: levothyroxine 137 mcg Tablet PO (08:45)
[2021-05-20] MEDS: ascorbic acid 500 mg Tablet 1000 MG PO ×2 (08:45→17:40)
[2021-05-20] MEDS: zinc gluconate 50 mg Tablet PO (08:46)
[2021-05-20] MEDS: docusate sodium 100 mg Capsule PO ×2 (08:46→17:40)
[2021-05-20] MEDS: clopidogrel 75 mg Tablet PO (08:46)
[2021-05-20] MEDS: aspirin 81 mg EC Tablet PO (08:46)
[2021-05-20] MEDS: cholecalciferol (vitamin D3) 1,000 unit Tablet 1000 UNIT PO (08:46)
[2021-05-20 09:41] LABS: Reflex Lactate Order REFLEX LACTIC ORDERD
--- NOTE | 2021-05-20 10:05 | ECG_ITS ---
[facility] [place] Date: 2021-05-20 Pat Name: Lucia Barnes Department: Room: EDIP Gender: Female Drapery Cutter Machine: : 1960 Requested By: Segundo Crawford Order Number: [id number] Reading MD: BERTHA LOPEZ Measurements Intervals [place] Rate: 70 P: 51 OR: 148 QRS: 37 QRSD: 97 T: 64 QT: 405 QTc: 440 Interpretive Statements SINUS RHYTHM POSSIBLE RIGHT VENTRICULAR CONDUCTION DELAY [RSR (QR) IN V1/V2] ST DEVIATION AND MODERATE T-WAVE ABNORMALITY, CONSIDER ANTEROLATERAL ISCHEMIA [-0.1+ mV T-WAVE IN V3-V6] ST DEVIATION AND MODERATE T-WAVE ABNORMALITY, CONSIDER INFERIOR ISCHEMIA [-0.1+ mV T-WAVE IN II/aVF] Compared to ECG 05/20/2021 06:52:26 Myocardial infarct finding no longer present T-wave abnormality still present Possible ischemia still present Electronically Signed On 05-20-2021 17:46:27 MANAGER QUALITY SYSTEMS by BERTHA LOPEZ [id number]
--- NOTE | 2021-05-20 10:37 | PC.NURSE ---
PATIENT BLOOD PRESSURE CHECKED TWICE, BOTH READING MAP OF BELOW 55. PROVIDER NOTIFIED. PROVIDER VERBALIZED 500 ML BOLUS OF NS. NURSE VERBALIZED BACK.
[2021-05-20] MEDS: sodium chloride 0.9% 500 ML 999 ML IV (10:43)
[2021-05-20 11:03] LABS: Troponin 5 6HR Delta -20.5 ng/L (0-12)
[2021-05-20 11:07] LABS: Lactic Acid level (Lactate) < 0.2 mmol/L (0.5-2.2)
[2021-05-20 11:30] LABS: Glucose Point of Care 244 mg/dL (70-110)
--- NOTE | 2021-05-20 21:35 | ECG_ITS ---
[facility] Test Date: 2021-05-20 Pat Name: Lucia Barnes Department: Room: ICU01 Gender: Female Cad Developer: : 1960 Requested By: Segundo Crawford Order Number: [id number] Reading MD: BERTHA LOPEZ Measurements Intervals Aubrey Rate: 78 P: 27 MT: 145 QRS: 21 QRSD: 97 T: 235 QT: 365 QTc: 418 Interpretive Statements SINUS RHYTHM ST DEVIATION AND MODERATE T-WAVE ABNORMALITY, CONSIDER ANTEROLATERAL ISCHEMIA [-0.1+ mV T-WAVE IN V3-V6] ST DEVIATION AND MODERATE T-WAVE ABNORMALITY, CONSIDER INFERIOR ISCHEMIA [-0.1+ mV T-WAVE IN II/aVF] Compared to ECG 05/20/2021 09:58:56 No significant changes Electronically Signed On 05-21-2021 19:17:06 PHOTOGRAPHIC COLORIST by BERTHA LOPEZ [id number]
[2021-05-20] MEDS: acetaminophen 325 mg Tablet 650 MG PO (21:37)
[2021-05-20] MEDS: vancomycin 1,250 MG/250 ML PIGGYBACK 200 MG IV (21:37)
[2021-05-20] MEDS: atorvastatin 40 mg Tablet PO (21:37)
--- NOTE | 2021-05-20 21:42 | PC.NURSE ---
Pt. getting back to bed from bedside commode when she began to have coughing attack. She then began having nausea and diaphoresis along with 9/10 chest pain. Performed EKG on patient.
[2021-05-20 21:46] LABS: Glucose Point of Care 246 mg/dL (70-110)
--- NOTE | 2021-05-20 22:00 | PC.NURSE ---
Called Dr. Crawford and informed of patient status and of EKG. Received orders for troponin blood draw. Pt. is now resting in bed with much less discomfort at this time. No further needs expressed at this time.
[2021-05-20] MEDS: metoclopramide 5 mg/mL SDV 2 mL IVP (22:22)
--- NOTE | 2021-05-20 22:32 | PC.NURSE ---
Pt. resting in bed with no complaints of chest pain at this time.
[2021-05-20 23:02] LABS: Troponin T (5th) Once 22 ng/L (0-10)
[2021-05-21] VITALS (103 sets, daily range): BP systolic 94–146; BP diastolic 44–91; PULSE 52–99; RESP 15–35; TEMP 36.1–36.8; O2SAT 89–98
[2021-05-21] MEDS: azithromycin 500 MG in sodium chloride 0.9% 250 ML 250 MG IV (04:40)
[2021-05-21] MEDS: midodrine 5 mg TABLET 10 MG PO ×3 (04:41→20:10)
[2021-05-21] MEDS: pantoprazole 40 mg SDV IVP ×2 (04:41→16:37)
[2021-05-21 05:49] LABS: Basophils % 0.1 %; Hematocrit 29.2 % (37.0-47.0); Hemoglobin 8.7 g/dL (11.5-15.3); Lymphocytes # 0.8 10^3/uL (0.8-4.8); Lymphocytes % 12.3 %; Mean Corpuscular HGB Conc 29.8 g/dL (30.0-36.0); Mean Corpuscular Hemoglobin 23.8 pg (28.0-34.0); Mean Corpuscular Volume 79.8 fl (81-99); Mean Platelet Volume 11.4 fL (7.4-10.4); Monocytes # 0.3 10^3/uL (0.2-0.9); Monocytes % 4.6 %; Neutrophils # 5.53 10^3/uL (1.8-7.7); Neutrophils % 81.2 %; Nucleated Red Blood Cells % 0 %; Platelet Count 204 10^3/cmm (130-400); Red Blood Count 3.66 10^6/uL (4.1-5.3); Red Cell Distribution Width 18.2 % (12.1-15.1); White Blood Count 6.8 10^3/uL (4.0-10.0)
[2021-05-21] MEDS: dexamethasone 10 mg/mL INJ 6 MG IVP (06:06)
[2021-05-21] MEDS: cefTRIAXone 1,000 MG in sodium chloride 0.9% (plus) 50 ML 100 MG IV (06:06)
[2021-05-21] MEDS: remdesivir 100 MG in sodium chloride 0.9% (100 ml) 80 ML IV (06:32)
[2021-05-21 06:42] LABS: Alanine Aminotransferase 20 U/L (0-33); Alkaline Phosphatase 122 IU/L (35-105); Anion Gap 13.1 (5-19); Aspartate Amino Transferase 29 U/L (0-32); Blood Urea Nitrogen 9 mg/dL (6-20); Calcium 8.3 mg/dL (8.5-10.5); Carbon Dioxide 22 mmol/L (22-29); Chloride 110 mmol/L (98-107); Globulin 2.8 g/dL (1.3-4.6); Glomerular Filtration Rate 126.3 mL/min (90-130); Glucose 162 mg/dL (65-115); Magnesium 1.6 mg/dL (1.7-2.3); Osmolality Calculated 294 mOsm/kg (285-295); Phosphorus 2.7 mg/dL (2.5-4.5); Potassium 4.1 mmol/L (3.5-5.1); Sodium 141 mmol/L (136-145); Total Bilirubin 0.2 mg/dL (0.15-1.2); Total Protein 5.8 g/dL (6.6-8.7)
[2021-05-21] MEDS: vancomycin 1,250 MG/250 ML PIGGYBACK 200 MG IV ×2 (07:18→18:29)
[2021-05-21 07:23] LABS: Glucose Point of Care 185 mg/dL (70-110)
[2021-05-21] MEDS: docusate sodium 100 mg Capsule PO ×2 (08:02→16:37)
[2021-05-21] MEDS: aspirin 81 mg EC Tablet PO (08:02)
[2021-05-21] MEDS: levothyroxine 137 mcg Tablet PO (08:02)
[2021-05-21] MEDS: zinc gluconate 50 mg Tablet PO (08:02)
[2021-05-21] MEDS: sucralfate 1 gm Tablet PO ×4 (08:02→20:10)
[2021-05-21] MEDS: cholecalciferol (vitamin D3) 1,000 unit Tablet 1000 UNIT PO (08:02)
[2021-05-21] MEDS: ascorbic acid 500 mg Tablet 1000 MG PO ×2 (08:02→16:37)
[2021-05-21] MEDS: clopidogrel 75 mg Tablet PO (08:02)
[2021-05-21] MEDS: insulin lispro 100 unit/1 mL SUBCUT ×3 (08:03→16:48)
[2021-05-21] MEDS: sodium chloride 0.9% 1,000 ML 100 ML IV ×2 (08:03→16:47)
[2021-05-21] MEDS: budesonide 0.5 mg/2 mL Neb INHALATION ×2 (09:36→19:55)
[2021-05-21] MEDS: ipratropium-albuterol 3 mL Neb INHALATION ×4 (09:36→19:55)
--- NOTE | 2021-05-21 10:31 | PM.PN ---
Subjective Subjective: Interval history: He complains of a headache and some nausea but otherwise is feeling fairly well. Her breathing is decent. Medications: Reviewed: Yes Vitals/I&O/Wt Last Vital Signs Temp 98.6 F 05/20/21 22:15 Pulse 96 05/21/21 09:46 Resp 18 05/21/21 09:37 BP 113/66 05/21/21 04:15 Pulse Ox 94 05/21/21 09:37 05/20/21 05/21/21 05/21/21 22:59 06:59 14:59 Intake Total 1250 / 2800 2130 / 2130 Output Total 300 / 300 Balance 1250 / 2800 -300 / 2500 2130 / 2130 Weight last 48 hrs Weight 177 lb Physical Exam Narrative: EXAM NARRATIVE: He is not in any distress today she is ill-appearing but is not in any distress. Neck/C-Spine: COMMON NORMALS: no JVD Resp: OTHER: Her lungs have faint wheezes throughout. Cardio: COMMON NORMALS: no JVD, regular rate, regular rhythm, S1 normal heart sound present, S2 normal heart sound present, No gallops present (Cardio), No clicks present (Cardio), No murmurs present (Cardio), No rub (Cardio) and Peripheral pulses 2+ throughout RATE: regular rate RHYTHM: regular rhythm HEART SOUNDS: S1 normal heart sound present and S2 normal heart sound present PERIPHERAL PULSES: Peripheral pulses 2+ throughout GI: COMMON NORMALS: Normal to inspection, nondistended, normoactive bowel sounds present, Soft to palpation, non-tender, No hepatosplenomegaly present, no masses and no bruits PALPATION: Yes Soft to palpation and Yes No hepatosplenomegaly present Data : 05/23/21 02:55 05/23/21 02:55 Micro: Microbiology 05/20/21 04:17 Urine Culture - Preliminary Urine,Clean Catch Gram Negative Rods 05/20/21 00:14 Blood Culture - Preliminary Blood NEGATIVE TO DATE 05/20/21 00:00 Blood Culture - Preliminary Blood NEGATIVE TO DATE 05/20/21 04:17 Legionella Urinary Antigen - Final Urine Ureter 05/20/21 04:17 Bacterial Antigens - Final Urine,Voided A&P Assessment and plan (1) Multifocal pneumonia: Status: Acute (2) 2019 novel coronavirus-infected pneumonia (NCIP): She is improving somewhat. Status: Acute (3) Pneumonia due to COVID-19 virus: Status: Acute Attestations Medical Necessity Statement*: Given her hypoxemia her stay will likely cross 2 midnights Coding Level of Care Code Acute Business Process Lead for g Fwd Exam Expanded Problem Focused Diagnoses Multifocal pneumonia J18.9 2019 novel coronavirus-infected pneumonia (NCIP) U07.1; J12.82 Pneumonia due to COVID-19 virus U07.1; J12.82
[2021-05-21] MEDS: metoclopramide 5 mg/mL SDV 2 mL IVP (10:39)
[2021-05-21 12:07] LABS: Glucose Point of Care 216 mg/dL (70-110)
[2021-05-21] MEDS: guaiFENesin-dextromethorphan UDC 10 mL 5 ML PO ×2 (12:09→23:01)
[2021-05-21] MEDS: lanolin oint 7 gm 1 APPLIC TOPICAL (12:10)
--- NOTE | 2021-05-21 14:39 | PC.NURSE ---
up to bedside commode this am iv pulled restarted into left ac space with 18 gauge cath ..frequent cough and occasinol c/o nausea am breakfast with poor appitite noted ..
[2021-05-21 16:46] LABS: Glucose Point of Care 214 mg/dL (70-110)
[2021-05-21] MEDS: acetaminophen 325 mg Tablet 650 MG PO ×2 (16:53→23:00)
--- NOTE | 2021-05-21 17:14 | NUR.SHIFT ---
Shift Note Frequent safety and comfort rounds continue up to bsc with assist frequent cough continues with activy. Patient monitored closely and continue medication refuses further cough medication ,, doesnt agree with me. Education provided includes vancomycin and covid precautions.
[2021-05-21 18:14] LABS: Vancomycin Trough 10.3 ug/mL (10-15)
[2021-05-21] MEDS: atorvastatin 40 mg Tablet PO (20:10)
[2021-05-21 23:08] LABS: Glucose Point of Care 188 mg/dL (70-110)
[2021-05-22] VITALS (55 sets, daily range): BP systolic 116–160; BP diastolic 60–102; PULSE 56–103; RESP 14–47; TEMP 36.6–37.8; O2SAT 85–94
[2021-05-22] MEDS: metoclopramide 5 mg/mL SDV 2 mL IVP (00:57)
[2021-05-22] MEDS: azithromycin 500 MG in sodium chloride 0.9% 250 ML 200 MG IV (04:40)
[2021-05-22] MEDS: midodrine 5 mg TABLET 10 MG PO (04:40)
[2021-05-22] MEDS: pantoprazole 40 mg SDV IVP ×2 (04:40→15:24)
[2021-05-22] MEDS: sodium chloride 0.9% 1,000 ML 100 ML IV (04:41)
[2021-05-22] MEDS: dexamethasone 10 mg/mL INJ 6 MG IVP (05:41)
[2021-05-22] MEDS: guaiFENesin-dextromethorphan UDC 10 mL 5 ML PO ×2 (05:41→20:28)
[2021-05-22 06:17] LABS: Basophils % 0.1 %; Hematocrit 28.4 % (37.0-47.0); Hemoglobin 8.4 g/dL (11.5-15.3); Lymphocytes # 0.7 10^3/uL (0.8-4.8); Lymphocytes % 7.8 %; Mean Corpuscular HGB Conc 29.6 g/dL (30.0-36.0); Mean Corpuscular Hemoglobin 23.3 pg (28.0-34.0); Mean Corpuscular Volume 78.7 fl (81-99); Mean Platelet Volume 11.4 fL (7.4-10.4); Monocytes # 0.3 10^3/uL (0.2-0.9); Monocytes % 3.2 %; Neutrophils # 8.05 10^3/uL (1.8-7.7); Neutrophils % 86.7 %; Nucleated Red Blood Cells % 0 %; Platelet Count 252 10^3/cmm (130-400); Red Blood Count 3.61 10^6/uL (4.1-5.3); Red Cell Distribution Width 18.3 % (12.1-15.1); White Blood Count 9.3 10^3/uL (4.0-10.0)
[2021-05-22 06:46] LABS: Alanine Aminotransferase 18 U/L (0-33); Albumin Level 2.8 g/dL (3.5-5.2); Alkaline Phosphatase 112 IU/L (35-105); Anion Gap 14.5 (5-19); Aspartate Amino Transferase 38 U/L (0-32); Blood Urea Nitrogen 11 mg/dL (6-20); Carbon Dioxide 21 mmol/L (22-29); Chloride 109 mmol/L (98-107); Globulin 2.8 g/dL (1.3-4.6); Glomerular Filtration Rate 163.4 mL/min (90-130); Glucose 170 mg/dL (65-115); Magnesium 1.5 mg/dL (1.7-2.3); Osmolality Calculated 295 mOsm/kg (285-295); Phosphorus 2.6 mg/dL (2.5-4.5); Potassium 3.5 mmol/L (3.5-5.1); Sodium 141 mmol/L (136-145); Total Bilirubin 0.3 mg/dL (0.15-1.2); Total Protein 5.6 g/dL (6.6-8.7)
[2021-05-22] MEDS: budesonide 0.5 mg/2 mL Neb INHALATION ×2 (07:53→19:55)
[2021-05-22] MEDS: ipratropium-albuterol 3 mL Neb INHALATION ×3 (07:53→19:55)
[2021-05-22] MEDS: sucralfate 1 gm Tablet PO ×4 (07:53→20:28)
[2021-05-22] MEDS: levothyroxine 137 mcg Tablet PO (07:54)
[2021-05-22] MEDS: clopidogrel 75 mg Tablet PO (07:54)
[2021-05-22] MEDS: aspirin 81 mg EC Tablet PO (07:54)
[2021-05-22] MEDS: cholecalciferol (vitamin D3) 1,000 unit Tablet 1000 UNIT PO (07:55)
[2021-05-22] MEDS: cefTRIAXone 1,000 MG in sodium chloride 0.9% (plus) 50 ML 100 MG IV (07:57)
[2021-05-22] MEDS: LORazepam 2 mg/mL INJ 1 mL 0.5 MG IVP ×3 (08:14→20:49)
[2021-05-22] MEDS: FUROsemide 10 mg/mL SDV 4mL 40 MG IVP (08:17)
[2021-05-22] MEDS: potassium chloride ER 20 mEq Tablet 40 MEQ PO (08:17)
[2021-05-22] MEDS: citalopram 20 mg Tablet PO (08:19)
[2021-05-22] MEDS: insulin lispro 100 unit/1 mL SUBCUT ×3 (08:20→17:36)
[2021-05-22 08:25] LABS: C Reactive Protein 17.4 mg/L (0.0-4.9)
[2021-05-22 08:32] LABS: Procalcitonin 0.11 ng/mL (0-0.5)
[2021-05-22 08:44] LABS: Glucose Point of Care 181 mg/dL (70-110)
--- NOTE | 2021-05-22 09:18 | PC.CHAP ---
Pastoral Care Encounter/Spiritual Assessment Type of Contact [] Declined rotary drum dyer visit [] Patient/Family/Request visit [] Outpatient visit [] Follow-up visit [] Physician referral [] Code/Alert [x] Routine visit [] Staff referral [] Actively dying [] Patient sleeping [] Family support [] [] Out of room [] Palliative care [] [x] Receiving care in room [] Pre-surgical visit [] Trauma [] Long length of stay [x] ICU visit [] Other: Relational/Emotional Strength [] Patient feels connected with others/family/visitors/staff [] Distress [] Loneliness/isolation [] Abandonment Spirituality of Patient [] Person of Ashley [] Attends Taoism of their Ashley [] Believes in Prayer [] Reads Bible or Nondenominational materials [] There are Spiritual issues to be addressed Poacher Operator Interventions [x] Prayer [] Active listening [] Non-anxious presence [] Spiritual/emotional support [] Crisis/trauma care [] Spiritual counseling [] Bereavement support [] Provided bereavement packet [] Provided Bible/devotional materials [] Provided toy/stuffed animal, coloring book to patient or family member [] Provided Communion [] Anointing/[place] [] Salvation [x] Completed spiritual assessment [] Other: Impact on Illness or Injury [] Angry [] Fearful [] Anxious [] Often cries [] Exhaustion [] Unable to work [] Unable to attend latter-day [] Unable to walk/stand [] Unable to read [] Unable to drive [] Unable to eat/drink [] Unable to sleep [] Unable to be with family [] Patient intubated [] Other: Summary Time spent with patient
[2021-05-22] MEDS: remdesivir 100 MG in sodium chloride 0.9% (100 ml) 80 ML IV (09:41)
[2021-05-22] MEDS: vancomycin 1,250 MG/250 ML PIGGYBACK 200 MG IV ×2 (09:41→17:34)
--- NOTE | 2021-05-22 10:48 | PM.PN ---
Subjective Subjective: Interval history: Lucia reports she is very anxious. She is short of breath. She overall does not feel good. Nursing tells me her oxygen requirement is increased to 5 L. Medications: Reviewed: Yes Vitals/I&O/Wt Last Vital Signs Temp 97.9 F 05/22/21 08:30 Pulse 87 05/22/21 10:00 Resp 31 H 05/22/21 10:00 BP 138/74 05/22/21 10:00 Pulse Ox 91 05/22/21 10:00 05/21/21 05/22/21 05/22/21 22:59 06:59 14:59 Intake Total 1773.333 / 4453.333 1000 / 5453.333 Output Total 1000 / 1000 300 / 1300 Balance 773.333 / 3453.333 700 / 4153.333 Physical Exam Narrative: EXAM NARRATIVE: General exam is an anxious appearing female, reporting she does not feel well. Neck is supple Cardiovascular regular rate and rhythm, no murmur Lungs she is tachypneic. Some scattered rales are noted. Abdomen is soft. Bowel sounds noted. Extremities no cyanosis or clubbing. She does appear to have some edema in her hands, and slight amount in her feet, trace Data : 05/22/21 05:00 05/22/21 05:00 Micro: Microbiology 05/20/21 04:17 Urine Culture - Preliminary Urine,Clean Catch Gram Negative Rods A&P Assessment and plan (1) 2019 novel coronavirus-infected pneumonia (NCIP): On remdesivir, dexamethasone Pulmonary toilet Incentive spirometry, Acapella Wean oxygen as tolerated Empiric antibiotics consisting of Rocephin and azithromycin Repeat procalcitonin, CRP. Procalcitonin negative. CRP markedly reduced. Holding baricitinib, or Actemra secondary to concern of consolidation on chest x-ray, that may represent bacterial pneumonia. CTA no pulmonary embolism. Mild to moderate changes consistent with COVID-19 pneumonia. Status: Acute (2) Hypotension: Resolved Status: Acute (3) Anemia: Has iron deficiency anemia Continue Protonix Await stool Hemoccult Iron transfusion today Status: Acute (4) CAD (coronary artery disease): Continue Plavix, aspirin Appears to have an element of chronic chest pain. She is on Ranexa as well. Status: Acute (5) Diabetes: Status: Acute (6) Sepsis: Resolved It appears vancomycin was ordered as well when she came in. Check MRSA PCR. If negative discontinue. Status: Acute Plan Hypomagnesemia. Supplement. Edema. Lasix x1, potassium oral Possible UTI. Urine growing gram-negative rods. Full code SCDs for DVT prophylaxis secondary to significant anemia Attestations Medical Necessity Statement*: Needs continued hospitalization for treatment of Covid 19 pneumonia, severe, with remdesivir and dexamethasone. Coding Level of Care Code Acute Senior Technical Project Manager [facility] Diagnoses 2019 novel coronavirus-infected pneumonia (NCIP) U07.1; J12.82 Hypotension I95.9 Anemia D64.9 CAD (coronary artery disease) I25.10 Diabetes E11.9 Sepsis A41.9
[2021-05-22] MEDS: iron sucrose 200 MG in sodium chloride 0.9% (100 ml) 100 ML 220 MG IV (10:53)
[2021-05-22 12:01] LABS: Glucose Point of Care 197 mg/dL (70-110)
[2021-05-22] MEDS: magnesium sulfate premix 2 GM/50 ML PIGGYBACK IV (12:21)
[2021-05-22 17:14] LABS: Glucose Point of Care 220 mg/dL (70-110)
[2021-05-22] MEDS: atorvastatin 40 mg Tablet PO (20:28)
[2021-05-22] MEDS: acetaminophen 325 mg Tablet 650 MG PO (20:28)
[2021-05-23] VITALS (45 sets, daily range): BP systolic 118–164; BP diastolic 55–93; PULSE 6–101; RESP 18–58; TEMP 36.6–36.8; O2SAT 81–98
[2021-05-23] MEDS: LORazepam 2 mg/mL INJ 1 mL 0.5 MG IVP (01:33)
--- NOTE | 2021-05-23 02:30 | PC.NURSE ---
Pt. becoming increasingly short of breath along with unable to keep her O2 saturation up. Placed on 15L oxy mask and O2 saturation increased to 89% however she is still breathing at 30-40 breaths per minute. Chest x-ray ordered. Pt. is very anxious.
--- NOTE | 2021-05-23 02:33 | XRR_ITS ---
PROCEDURE INFORMATION: Exam: XR Chest Exam date and time: 05/23/2021 2:33 AM Age: 60 years old Clinical indication: Dyspnea; Additional info: Decreased oxygen TECHNIQUE: Imaging protocol: XR of the chest. Views: 1 view. COMPARISON: CR (CHEST, ) 05/19/2021 9:58 PM FINDINGS: Lungs: There is dense consolidation and patchy infiltrates throughout both lungs. Pleural spaces: Unremarkable. No pleural effusion. No pneumothorax. Heart/Mediastinum: Stable surgical changes throughout mediastinum. Bones/joints: Stable surgical fixation hardware in the right humerus. XR/XR chest 1V portable [id number] IMPRESSION: Severe pneumonia consolidation throughout both lungs.
--- NOTE | 2021-05-23 03:38 | PC.NURSE ---
Spoke with Dr. Warren about patient status. Pt.s ABG is being run at this moment. Ordered for patient to be on heated hi flow per RT at this time.
[2021-05-23 03:39] LABS: Basophils % 0.1 %; Hematocrit 30.1 % (37.0-47.0); Hemoglobin 8.9 g/dL (11.5-15.3); Lymphocytes # 0.6 10^3/uL (0.8-4.8); Lymphocytes % 7.7 %; Mean Corpuscular HGB Conc 29.6 g/dL (30.0-36.0); Mean Corpuscular Hemoglobin 23.2 pg (28.0-34.0); Mean Corpuscular Volume 78.6 fl (81-99); Monocytes # 0.2 10^3/uL (0.2-0.9); Monocytes % 2.8 %; Neutrophils # 7.11 10^3/uL (1.8-7.7); Neutrophils % 87.9 %; Nucleated Red Blood Cells % 0.4 %; Platelet Count 261 10^3/cmm (130-400); Red Blood Count 3.83 10^6/uL (4.1-5.3); Red Cell Distribution Width 18.4 % (12.1-15.1); White Blood Count 8.1 10^3/uL (4.0-10.0)
[2021-05-23 03:41] LABS: ABG PCO2 30.7 mmHg (35-45); ABG PH Result 7.48 (7.35-7.45); Alveolar-Arterial Oxygen Gradi 8.3 mmHg (5-10); Base Excess ABG -0.1 mmol/L (-2.0-2.0); Blood Gas Sample Site Radial, left; Blood Gas Sample Type Arterial; Carboxyhemoglobin 0.4 %THgb (0.4-20.1); HGB O2 Sat 81.8 % (95-100); Ionized Calcium Level - ABG 1.2 mmol/L (1.1-1.4); Methemoglobin 1.2 % (0.4-1.5); Oxygen Device OXY MASK; Oxygen Saturation ABG 83.2; PO2 ABG 47.3 mmHg (80.0-100.0); Potassium Level - ABG 3.1 mmol/L (3.5-5.0); Total Hemoglobin 8.8 g/dL (12-16)
[2021-05-23] MEDS: dexmedeTOMIDine 0.9 % NaCL 400 MCG/100 ML PREMIX IV (03:51)
[2021-05-23] MEDS: HYDROcodone-acetaminophen 5-325 mg Tablet 1 TAB PO ×3 (04:07→20:33)
[2021-05-23 04:08] LABS: Alanine Aminotransferase 22 U/L (0-33); Albumin Level 2.8 g/dL (3.5-5.2); Alkaline Phosphatase 119 IU/L (35-105); Anion Gap 17.3 (5-19); Aspartate Amino Transferase 39 U/L (0-32); Blood Urea Nitrogen 12 mg/dL (6-20); Calcium 8.9 mg/dL (8.5-10.5); Carbon Dioxide 19 mmol/L (22-29); Chloride 107 mmol/L (98-107); Globulin 3.3 g/dL (1.3-4.6); Glomerular Filtration Rate 163.4 mL/min (90-130); Glucose 161 mg/dL (65-115); Magnesium 1.8 mg/dL (1.7-2.3); Osmolality Calculated 293 mOsm/kg (285-295); Potassium 3.3 mmol/L (3.5-5.1); Sodium 140 mmol/L (136-145); Total Bilirubin 0.6 mg/dL (0.15-1.2); Total Protein 6.1 g/dL (6.6-8.7)
[2021-05-23] MEDS: azithromycin 500 MG in sodium chloride 0.9% 250 ML 200 MG IV (05:49)
[2021-05-23] MEDS: pantoprazole 40 mg SDV IVP ×2 (05:49→15:20)
[2021-05-23] MEDS: dexamethasone 10 mg/mL INJ 6 MG IVP (05:49)
[2021-05-23] MEDS: vancomycin 1,250 MG/250 ML PIGGYBACK 200 MG IV (05:50)
[2021-05-23] MEDS: cefTRIAXone 1,000 MG in sodium chloride 0.9% (plus) 50 ML 100 MG IV (05:50)
--- NOTE | 2021-05-23 07:28 | USCV_ITS ---
Lucia Barnes Age: 60 Gender: F : 1960 Exam Date: 05/23/2021 08:25 Ordering Phys: Krish Ross MD Technologist: JOHN Exam Location: [facility] [place] Indication: Dyspnea BP: 129 / 62 HR: 69 Rhythm: Sinus Technical Quality: Adequate MEASUREMENTS (Male / Female) Normal Values 2D ECHO LV Diastolic Diameter PLAX 4.1 cm 4.2 - 5.9 / 3.9 - 5.3 cm LV Systolic Diameter PLAX 2.5 cm IVS Diastolic Thickness 1.3 cm 0.6 - 1.0 / 0.6 - 0.9 cm IVS Systolic Thickness 2.1 cm LVPW Diastolic Thickness 1.6 cm 0.6 - 1.0 / 0.6 - 0.9 cm LVPW Systolic Thickness 1.5 cm LVOT Diameter 2.0 cm LV Ejection Fraction 2D Teich 69.9 % LV Ejection Fraction MOD 2C 54.5 % LV Ejection Fraction 2C AL 55.2 % LA Diameter 4.3 cm LA Width 3.8 cm LA Height 5.5 cm RA Width 2.8 cm RA Height 3.9 cm Aorta at Sinotubular Diameter 2.4 cm M-MODE Aortic Annulus Diameter 2.7 cm LA Ao Ratio MM 1.7 MV E Point Septal Separation 0.6 cm DOPPLER AV Peak Velocity 155.0 cm/s LVOT Peak Velocity 131.0 cm/s AV Area Cont Eq vti 2.7 cm squared AV Area Cont Eq pk 2.6 cm squared MV Peak Velocity 114.0 cm/s MV Area PHT 2.3 cm squared Mitral E to A Ratio 0.9 MV E' Velocity 54.5 cm/s Mitral E to MV E' Ratio 9.2 Mitral E to LV E' Lateral Ratio 8.3 Mitral E to LV E' Septal Ratio 10.3 TR Peak Velocity 347.3 cm/s TR Peak Gradient 48.2 mmHg TV Peak E Velocity 49.0 cm/s Right Atrial Pressure 10.0 mmHg Pulmonary Artery Systolic Pressu 58.2 mmHg PV Peak Velocity 108.0 cm/s RV Acceleration Time 0.1 s RV Ejection Time 0.4 s RV AcT/ET 0.3 FINDINGS Left Ventricle Normal left ventricular size. LV systolic function is normal with EF of 55-60%. No regional wall motion abnormalities. Grade 1 diastolic dysfunction Right Ventricle The right ventricle is normal in size and function. Right Atrium The right atrium is normal in size. Left Atrium The left atrium is normal in size. Mitral Valve Structurally normal mitral valve without significant stenosis or prolapse. There is mild mitral regurgitation. Aortic Valve Grossly normal without significant sclerosis or stenosis. There is moderate aortic regurgitation. Tricuspid Valve Structurally normal tricuspid valve without significant stenosis. Mild tricuspid regurgitation. RVSP is 50-55mmHg. This is consistent with moderate pulmonary hypertension Pulmonic Valve Structurally normal pulmonic valve without significant stenosis. There is no pulmonic regurgitation. Pericardium Normal pericardium without effusion. Aorta Normal ascending aorta dimension. CONCLUSIONS LV systolic function is normal with EF of 55-60% Grade 1 diastolic dysfunction Mild mitral regurgitation Modearte aortic regurgitation Mild tricuspid regurgitation Moderate pulmonary hypertension No comparison studies are available Ritesh Onofre MD (Electronically Signed) Final Date: 23 May 2021 15:09 S
[2021-05-23] MEDS: ipratropium-albuterol 3 mL Neb INHALATION ×4 (07:38→19:57)
[2021-05-23] MEDS: budesonide 0.5 mg/2 mL Neb INHALATION ×2 (07:38→19:57)
[2021-05-23] MEDS: FUROsemide 10 mg/mL SDV 10mL 60 MG IVP (08:05)
[2021-05-23 08:32] LABS: NT Pro B Type Natriuretic Pept 2043 pg/mL (0-125)
[2021-05-23 08:37] LABS: Glucose Point of Care 234 mg/dL (70-110)
[2021-05-23] MEDS: citalopram 20 mg Tablet PO (09:30)
[2021-05-23] MEDS: aspirin 81 mg EC Tablet PO (09:30)
[2021-05-23] MEDS: levothyroxine 137 mcg Tablet PO (09:30)
[2021-05-23] MEDS: cholecalciferol (vitamin D3) 1,000 unit Tablet 1000 UNIT PO (09:30)
[2021-05-23] MEDS: clopidogrel 75 mg Tablet PO (09:30)
[2021-05-23] MEDS: dexmedeTOMIDine 0.9 % NaCL 400 MCG/100 ML PREMIX 16.06 MCG IV ×3 (09:31→22:10)
[2021-05-23] MEDS: docusate sodium 100 mg Capsule PO ×2 (09:31→18:35)
[2021-05-23] MEDS: insulin lispro 100 unit/1 mL SUBCUT ×3 (09:34→18:36)
--- NOTE | 2021-05-23 10:58 | PC.SOCIAL ---
IMM update IMM updated with daughter Nemo. Verbalized an understanding. Initialled, dated, timed, and placed in chart.
[2021-05-23] MEDS: remdesivir 100 MG in sodium chloride 0.9% (100 ml) 80 ML IV (11:29)
[2021-05-23] MEDS: LORazepam 2 mg/mL INJ 1 mL 1 MG IVP ×2 (11:30→20:34)
--- NOTE | 2021-05-23 12:30 | PM.PN ---
Subjective Subjective: Interval history: Required significant high flow through the night. I placed on BiPAP this morning. I's and O's mismatch despite Lasix yesterday. IV fluids stopped by me yesterday morning. Anxious and tachypneic. No chest pain. Medications: Reviewed: Yes Vitals/I&O/Wt Last Vital Signs Temp 97.8 F 05/23/21 02:01 Pulse 75 05/23/21 11:57 Resp 38 H 05/23/21 11:57 BP 155/70 05/23/21 11:00 Pulse Ox 95 05/23/21 11:57 05/22/21 05/23/21 05/23/21 22:59 06:59 14:59 Intake Total 250 / 630 2.345 / 632.345 782.27 / 782.27 Output Total 300 / 300 800 / 800 Balance 250 / 630 -297.655 / 332.345 -17.73 / -17.73 Physical Exam Narrative: EXAM NARRATIVE: General exam tachypneic with obvious respiratory distress. Now on BiPAP. Neck is supple Cardiovascular regular rate and rhythm, no murmur Lungs scattered rales Abdomen is soft. Bowel sounds noted. Extremities no cyanosis or clubbing. Trace edema Urinary Catheter Management: Musa: Cath Placed During This Visit: yes Urinary Catheter Date of Insertion: 05/23/21 Urinary Catheter Time of Insertion: 08:32 Data : 05/23/21 02:55 05/23/21 02:55 Micro: Microbiology 05/20/21 04:17 Urine Culture - Final Urine,Clean Catch Escherichia coli Klebsiella pneumoniae A&P Assessment and plan (1) 2019 novel coronavirus-infected pneumonia (NCIP): On remdesivir, dexamethasone Pulmonary toilet Incentive spirometry, Acapella Wean oxygen as tolerated Empiric antibiotics consisting of Rocephin and azithromycin CRP had decreased significantly. Holding baricitinib, or Actemra secondary to concern of consolidation on chest x-ray, that may represent bacterial pneumonia. CTA no pulmonary embolism. Mild to moderate changes consistent with COVID-19 pneumonia. Mild elevation of dimer. Check venous duplex. Initiate Lovenox for DVT prophylaxis. Stop aspirin. Concern of worsening overnight with mismatched I's and O's. 60 mg of Lasix given IV this morning. Placed on BiPAP. Now on FiO2 of 50% but still significantly tachypneic despite initiation of Precedex. X-ray demonstrated severe consolidation bilaterally although there may be a component of pulmonary edema to my eye. Secondary to concern of consolidative pneumonia awaiting sputum culture. On vancomycin and Primaxin. CRP Status: Acute (2) Hypotension: Resolved Status: Acute (3) Anemia: Has iron deficiency anemia Continue Protonix Await stool Hemoccult Iron transfusion was given May 22 Status: Acute (4) CAD (coronary artery disease): Continue Plavix, aspirin Appears to have an element of chronic chest pain. She is on Ranexa at home BNP elevated. 60 mg of Lasix IV this morning. Likely will need another dose this afternoon. BNP was elevated at 1999. Musa was placed for accurate I's and O's. Status: Acute (5) Diabetes: Sliding scale insulin Status: Acute (6) Sepsis: Resolved It appears vancomycin was ordered as well when she came in. Await MRSA PCR. She does not need any more fluid resuscitation. Status: Acute Plan Hypomagnesemia. Supplemented Hypokalemia, supplement Edema. Lasix x1, potassium oral UTI. Urine culture growing Klebsiella, E. coli Full code Lovenox for DVT prophylaxis Attestations Medical Necessity Statement*: Needs continued hospitalization secondary to BiPAP need with severe COVID, CHF Critical Care Time: The high probability of a clinically significant, sudden or life threatening deterioration of the patient's [pulmonary, cardiac system(s) required my full and direct attention, intervention and personal management. The critical care time is as shown. This time is in addition to time spent performing any reported procedures but includes the following: [x] Data and vital sign review and interpretation [x] Patient assessment, examination and intervention [x] Documentation [x] Medication orders and management Critical Care Time (min): 36 Coding Level of Care Code Acute Executive Administrative Assistant for [facility] Fwd Diagnoses 2019 novel coronavirus-infected pneumonia (NCIP) U07.1; J12.82 Hypotension I95.9 Anemia D64.9 CAD (coronary artery disease) I25.10 Diabetes E11.9 Sepsis A41.9
[2021-05-23 12:36] LABS: Glucose Point of Care 246 mg/dL (70-110)
[2021-05-23] MEDS: enoxaparin 40 mg/0.4 mL Syringe SUBCUT (14:03)
--- NOTE | 2021-05-23 14:37 | XR_ITS ---
WS: [id number] XR chest 1V portable [id number] REASON FOR EXAM: Line placement FINDINGS: Left arm PICC line has been placed. The tip is in the superior vena cava. Diffuse bilateral reticular/ground glass patchy lung opacities. Lung opacities appear somewhat less d ense and confluent than on the examination of earlier today. The appearance may be due to difference in x-ray technique. No new findings. XR/XR chest 1V portable [id number] IMPRESSION: PICC line in proper position. Possible interval change in the diffuse pulmonary infiltrates as above.
[2021-05-23] MEDS: lidocaine 1% 5 ML in potassium chloride premix 100 ML 25 ML IV (16:17)
[2021-05-23 16:46] LABS: Blood Urea Nitrogen 13 mg/dL (6-20); Calcium 7.5 mg/dL (8.5-10.5); Carbon Dioxide 21 mmol/L (22-29); Chloride 102 mmol/L (98-107); Glomerular Filtration Rate 163.4 mL/min (90-130); Glucose 214 mg/dL (65-115); Osmolality Calculated 285 mOsm/kg (285-295); Sodium 134 mmol/L (136-145)
[2021-05-23 16:48] LABS: Anion Gap 14.7 (5-19); Potassium 3.7 mmol/L (3.5-5.1)
--- NOTE | 2021-05-23 17:41 | PM.CONSULT ---
Providers/Reason For Consult Consulting Physician/Specialty*: Uri Paul MD/ Pulmonary Critical Care Reason for Consult*: Acute hypoxic respiratory failure secondary to ARDS due to COVID-19 pneumonia and coexisting CHF exacerbation requiring high flow oxygen Requesting Physician: Krish Ross MD Attending Physician: Krish Ross MD History of Present Illness History of Present Illness Lucia Barnes is a 60 year old female with a PMH of noninsulin-dependent type 2 diabetes mellitus, hypertension, hyperlipidemia, hypothyroidism, CAD status post CABG, chronic anemia, presented to [facility] 12/2021 due to shortness of breath fatigue, malaise, chest pain, lightheadedness, poor appetite.? She was tested positive for Covid roughly a week ago, since that she has had progressively increased fatigue, malaise, poor appetite, lightheadedness, worsening shortness of breath, mild fevers, substernal chest pain, nonradiating, no lightheadedness, dizziness, no diaphoresis.? She denies any bloody or black stools, no hemoptysis, no calf pain, no calf swelling.? In the emergency room patient was found to be COVID-19 positive, febrile, requiring 2 L, CT angiogram negative for pulmonary emboli, patient was going to be discharged home, and developed hypotension, receiving a fluid bolus, MAP borderline at 65, alert oriented x3. Patient was given a significant amount of IV fluids for hypotension and covered with Rocephin and azithromycin. Her urine culture was positive for pansensitive Klebsiella and Escherichia coli. Since admission she has gradually deteriorated requiring high FiO2-today morning she was on high flow nasal cannula 100%. Her antibiotics were changed from Rocephin/daptomycin to imipenem/vancomycin. She also appeared anxious and was started on Precedex yesterday. Pulmonary critical care consulted for worsening hypoxic respiratory failure Patient seen at bedside today Patient received 1 dose Lasix and put out 3000 cc urine-FiO2 down to 55% BiPAP 03/12. Patient is still tachypneic 30-40/minute -down from 55/minute-increase Precedex 0.08 Other labs and imaging reviewed Review of Systems General: Reports: 10 or more systems reviewed and unremarkable except in HPI and below Medications/Allergies Home Medications Medication Instructions Recorded Confirmed Last Taken Type metoclopramide HCl 10 mg tablet 10 mg PO Q6H PRN #10 tab 05/13/21 05/21/21 Unknown Rx (Reglan) aspirin 325 mg tablet 325 mg PO DAILY 05/20/21 05/20/21 1 Day Ago History ~05/19/21 atorvastatin 80 mg tablet 80 mg PO DAILY 05/20/21 05/21/21 Unknown History carvedilol 3.125 mg tablet 3.125 mg PO BID 05/20/21 05/21/21 Unknown History cholecalciferol (vitamin D3) 125 125 mcg PO DAILY 05/20/21 05/21/21 Unknown History mcg (5,000 unit) tablet (Vitamin D3) citalopram 20 mg tablet 20 mg PO DAILY 05/20/21 05/21/21 Unknown History clopidogrel 75 mg tablet 75 mg PO DAILY 05/20/21 05/21/21 Unknown History cyanocobalamin (vitamin B-12) 50 50 mcg PO DAILY 05/20/21 05/21/21 Unknown History mcg tablet (Vitamin B-12) garlic 100 mg tablet 100 mg PO DAILY 05/20/21 05/21/21 Unknown History glipizide 5 mg tablet 5 mg PO DAILY 05/20/21 05/21/21 Unknown History ibuprofen 200 mg PO PRN PRN 05/20/21 05/20/21 1 Day Ago History ~05/19/21 levothyroxine 137 mcg tablet 137 mcg PO DAILY 05/20/21 05/21/21 Unknown History (Synthroid) magnesium 200 mg tablet 200 mg PO DAILY 05/20/21 05/21/21 Unknown History nitroglycerin 0.4 mg sublingual 0.4 mg SUBLINGUAL Q5M PRN 05/20/21 05/21/21 1 Day Ago History tablet (Nitrostat) ~05/19/21 olmesartan 20 mg tablet 20 mg PO DAILY 05/20/21 05/21/21 Unknown History omega-3 fatty acids-fish oil 684 1 cap PO DAILY 05/20/21 05/20/21 1 Day Ago History mg-1,200 mg capsule,delayed release ~05/19/21 potassium 99 mg tablet 99 mg PO DAILY 05/20/21 05/21/21 1 Day Ago History ~05/19/21 ranolazine 1,000 mg 1,000 mg PO BID 05/20/21 05/21/21 Unknown History tablet,extended release,12 hr (Ranexa) scopolamine base 1.5 mg TRANSDERMAL PRN PRN 05/20/21 05/20/21 1 Day Ago History ~05/19/21 sitagliptin 50 mg-metformin 1,000 1 tab PO BID 05/20/21 05/21/21 Unknown History mg tablet (Janumet) zinc 50 mg tablet 50 mg PO DAILY 05/20/21 05/21/21 Unknown History Allergies Allergy/AdvReac Type Severity Reaction Status Date / Time morphine Allergy ADR-Vomitin Verified 05/19/21 21:58 g ondansetron [From Zofran] Allergy ADR-Vomitin Verified 05/19/21 21:58 g Penicillins Allergy ALGY-Difficulty Verified 05/19/21 21:58 Breathing Current Medications Generic Name Dose Route Start Last Admin Trade Name Freq PRN Reason Stop Dose Admin Acetaminophen 650 mg 05/20/21 04:10 05/22/21 20:28 Acetaminophen 325 Mg Tablet PO 650 mg Q6H PRN Administration Mild/Mod Pain Or Temp >/= 101 Hydrocodone Bitart/Acetaminophen 1 tab 05/23/21 04:00 05/23/21 09:30 Hydrocodone-Acetaminophen 5-325 Mg Tablet PO 1 tab Q4H PRN Administration MODERATE PAIN Albuterol/Ipratropium 3 ml 05/20/21 08:00 05/23/21 15:28 Ipratropium-Albuterol 3 Ml Neb INHALATION 3 ml QID.RESPIRATORY ASHLEY Administration Atorvastatin Calcium 40 mg 05/20/21 21:00 05/22/21 20:28 Atorvastatin 40 Mg Tablet PO 40 mg BEDTIME ASHLEY Administration Budesonide 0.5 mg 05/20/21 08:00 05/23/21 07:38 Budesonide 0.5 Mg/2 Ml Neb INHALATION 0.5 mg BID.RESPIRATORY ASHLEY Administration Citalopram Hydrobromide 20 mg 05/22/21 09:00 05/23/21 09:30 Citalopram 20 Mg Tablet PO 20 mg DAILY ASHLEY Administration Clopidogrel Bisulfate 75 mg 05/20/21 09:00 05/23/21 09:30 Clopidogrel 75 Mg Tablet PO 75 mg DAILY ASHLEY Administration Dexamethasone 6 mg 05/21/21 06:00 05/23/21 05:49 Dexamethasone 10 Mg/Ml Inj IVP 6 mg Q24H ASHLEY Administration Docusate Sodium 100 mg 05/20/21 09:00 05/23/21 09:31 Docusate Sodium 100 Mg Capsule PO 100 mg BID ASHLEY Administration Enoxaparin Sodium 40 mg 05/23/21 12:45 05/23/21 14:03 Enoxaparin 40 Mg/0.4 Ml Syringe SUBCUT 40 mg Q24H ASHLEY Administration Guaifenesin/Dextromethorphan 5 ml 05/21/21 10:35 05/22/21 20:28 Guaifenesin-Dextromethorphan Udc 10 Ml PO 5 ml Q4H PRN Administration COUGH Remdesivir 100 mg/ Sodium 80 mls @ 100 mls/hr 05/21/21 06:00 05/23/21 16:44 Chloride IV 05/24/21 06:47 Infused Q24H ASHLEY Infusion Vancomycin/PEG/NADA/Lysine/Water 1,250 mg in 250 mls @ 250 mls/hr 05/20/21 06:00 05/23/21 09:54 Vancocin IV Infused Q12H ASHLEY Infusion dexmedeTOMIDine 0.9 % NaCL 400 mcg in 100 mls @ 0 mls/hr 05/23/21 03:45 05/23/21 16:15 Precedex IV 0.8 mcg/kg/hr .Q0M ASHLEY 16.06 mls/hr Administration Protocol Per Protocol Imipenem/Cilastatin Sodium 500 100 mls @ 200 mls/hr 05/23/21 07:30 05/23/21 16:43 mg/ Sodium Chloride IV Infused Q6H ASHLEY Infusion Protocol Lidocaine HCl 5 ml/ Potassium 105 mls @ 25 mls/hr 05/23/21 15:31 05/23/21 16:17 Chloride IV 05/23/21 19:42 25 mls/hr ONCE ONE Administration Insulin Human Lispro 0 unit 05/20/21 08:00 05/23/21 14:04 Insulin Lispro 100 Unit/1 Ml SUBCUT 6 unit TIDWM ASHLEY Administration Protocol Lanolin 1 applic 05/21/21 10:35 05/21/21 12:10 Lanolin Oint 7 Gm TOPICAL 1 appful PRN PRN Administration DRYNESS Levothyroxine Sodium 137 mcg 05/20/21 09:00 05/23/21 09:30 Levothyroxine 137 Mcg Tablet PO 137 mcg DAILY ASHLEY Administration Lorazepam 1 mg 05/23/21 03:41 05/23/21 11:30 Lorazepam 2 Mg/Ml Inj 1 Ml IVP 1 mg Q4H PRN Administration ANXIETY Metoclopramide HCl 5 mg 05/20/21 22:03 05/22/21 00:57 Metoclopramide 5 Mg/Ml Sdv 2 Ml IVP 5 mg Q4H PRN Administration NAUSEA AND VOMITING Pantoprazole Sodium 40 mg 05/20/21 16:00 05/23/21 15:20 Pantoprazole 40 Mg Sdv IVP 40 mg Q12H ASHLEY Administration Vitamin D 1,000 unit 05/20/21 09:00 05/23/21 09:30 Cholecalciferol (Vitamin D3) 1,000 Unit Tablet PO 1,000 unit DAILY ASHLEY Administration PFSH Acute PFSH: Medical History (Updated 05/23/21 @ 18:12 by Uri Paul MD) CAD (coronary artery disease) Diabetes HLD (hyperlipidemia) HTN (hypertension) Surgical History (Updated 05/23/21 @ 18:11 by Uri Paul MD) H/O exploratory laparotomy H/O: hysterectomy History of coronary artery stent placement Hx of CABG Family History Other CAD (coronary artery disease) Social History Smoking and tobacco status: former smoker Alcohol intake: never Vitals/I&O/Wt Last Vital Signs Temp 97.8 F 05/23/21 02:01 Pulse 77 05/23/21 15:36 Resp 44 H 05/23/21 15:36 BP 141/73 05/23/21 15:00 Pulse Ox 93 05/23/21 15:36 05/23/21 05/23/21 05/23/21 06:59 14:59 22:59 Intake Total 2.345 / 632.345 842.27 / 842.27 280 / 1122.27 Output Total 300 / 300 1700 / 1700 900 / 2600 Balance -297.655 / 332.345 -857.73 / -857.73 -620 / -1477.73 Physical Exam Narrative: EXAM NARRATIVE: General: Elderly female, on BiPAP, in mild to moderate respiratory distress HEENT: conj clear, EOMI, PERRL, mmm, Neck: supple, no meningismus Heme: no cervical LAP Pulmonary: Normal breath sounds bilateral upper lobes;crackles both bases Cardiovascular: rrr, nl s1s2, no mrg Abdomen: soft, nt, nd, no r/g, bs+ Extremities: pulses +, no edema, no c/c : no CVA tenderness Skin: intact, no rash MSK: no back or neck pain Neurologic: grossly intact Urinary Catheter Management: Musa: Cath Placed During This Visit: yes Urinary Catheter Date of Insertion: 05/23/21 Urinary Catheter Time of Insertion: 08:32 Data : 05/23/21 02:55 05/23/21 15:55 Other Labs: Radiology Impressions Chest CTA 05/20/21 01:17 IMPRESSION: 1. Geographic ground-glass opacities with some crazy paving and consolidation consistent with [id number] bilateral COVID-19 pneumonia versus other pneumonia. 2. Stable CABG procedure. 3. No pulmonary embolus or aortic dissection. Chest X-Ray 05/23/21 14:37 IMPRESSION: PICC line in proper position. Possible interval change in the diffuse pulmonary infiltrates as above. Laboratory Results WBC 8.1 10^3/uL (4.0-10.0) 05/23/21 02:55 RBC 3.83 10^6/uL (4.1-5.3) L 05/23/21 02:55 Hgb 8.9 g/dL (11.5-15.3) L 05/23/21 02:55 Hct 30.1 % (37.0-47.0) L 05/23/21 02:55 MCV 78.6 fl (81-99) L 05/23/21 02:55 MCH 23.2 pg (28.0-34.0) L 05/23/21 02:55 MCHC 29.6 g/dL (30.0-36.0) L 05/23/21 02:55 RDW 18.4 % (12.1-15.1) H 05/23/21 02:55 Plt Count 261 10^3/cmm (130-400) 05/23/21 02:55 MPV 11.0 fL (7.4-10.4) H 05/23/21 02:55 Neut % (Auto) 87.9 % 05/23/21 02:55 Lymph % (Auto) 7.7 % 05/23/21 02:55 Dixie % (Auto) 2.8 % 05/23/21 02:55 Eos % (Auto) 0.0 % 05/23/21 02:55 Baso % (Auto) 0.1 % 05/23/21 02:55 Neut # (Auto) 7.11 10^3/uL (1.8-7.7) 05/23/21 02:55 Lymph # (Auto) 0.6 10^3/uL (0.8-4.8) L 05/23/21 02:55 Dixie # (Auto) 0.2 10^3/uL (0.2-0.9) 05/23/21 02:55 Eos # (Auto) 0.0 10^3/uL (0.0-0.8) 05/23/21 02:55 Baso # (Auto) 0.0 10^3/uL (0.0-0.1) 05/23/21 02:55 Nucleated RBC % (auto) 0.4 % 05/23/21 02:55 Nucleated RBCs # 0.0 /100WBC 05/23/21 02:55 D-Dimer 1.08 ug/mIFEU (0-0.59) H 05/20/21 00:14 Specimen Type Arterial 05/23/21 03:29 Sample Site Radial, left 05/23/21 03:29 ABG pH 7.48 (7.35-7.45) H 05/23/21 03:29 ABG pCO2 30.7 mmHg (35-45) L 05/23/21 03:29 ABG pO2 47.3 mmHg (80.0-100.0) L 05/23/21 03:29 ABG HCO3 23.0 mmol/L (22-26) 05/23/21 03:29 ABG O2 Saturation 83.2 05/23/21 03:29 ABG Base Excess -0.1 mmol/L (-2.0-2.0) 05/23/21 03:29 Carroll Test N/a 05/23/21 03:29 A-a O2 Gradient 8.3 mmHg (5-10) 05/23/21 03:29 Hematocrit 27.0 % (37-47) L 05/23/21 03:29 Hgb O2 Saturation 81.8 % (95-100) L 05/23/21 03:29 Carboxyhemoglobin 0.4 %THgb (0.4-20.1) 05/23/21 03:29 Methemoglobin 1.2 % (0.4-1.5) 05/23/21 03:29 Total Hemoglobin 8.8 g/dL (12-16) L 05/23/21 03:29 Sodium 142.0 mmol/L (131-143) 05/23/21 03:29 Potassium 3.1 mmol/L (3.5-5.0) L 05/23/21 03:29 Glucose 173.0 mg/dL (70-115) H 05/23/21 03:29 Ionized Calcium 1.2 mmol/L (1.1-1.4) 05/23/21 03:29 O2 Delivery Device Oxy mask 05/23/21 03:29 O2 Liters/Min 15.0 % 05/23/21 03:29 Continuous [employer] Super[employer] ID [email or web address] 05/23/21 03:29 Sodium 134 mmol/L (136-145) L 05/23/21 15:55 Potassium 3.7 mmol/L (3.5-5.1) 05/23/21 15:55 Chloride 102 mmol/L (98-107) 05/23/21 15:55 Carbon Dioxide 21 mmol/L (22-29) L 05/23/21 15:55 Anion Gap 14.7 (5-19) 05/23/21 15:55 BUN 13 mg/dL (6-20) 05/23/21 15:55 Creatinine 0.4 mg/dL (0.5-0.9) L 05/23/21 15:55 GFR Calculation 163.4 mL/min (90-130) H 05/23/21 15:55 Glucose 214 mg/dL (65-115) H 05/23/21 15:55 POC Glucose 246 mg/dL (70-110) H 05/23/21 12:33 Estimat Average Glucose 148 05/20/21 00:14 Hemoglobin A1c 6.8 % (4.0-6.0) H 05/20/21 00:14 Calculated Osmolality 285 mOsm/kg (285-295) 05/23/21 15:55 Lactic Acid 2.2 mmol/L (0.5-2.2) 05/20/21 00:14 Lactic Acid Cancelled 05/20/21 00:14 Lactic Acid (Sepsis) < 0.2 mmol/L (0.5-2.2) L 05/20/21 10:17 Calcium 7.5 mg/dL (8.5-10.5) L 05/23/21 15:55 Phosphorus 2.6 mg/dL (2.5-4.5) 05/22/21 05:00 Magnesium 1.8 mg/dL (1.7-2.3) 05/23/21 02:55 Iron 11 ug/dL (37-145) L 05/20/21 00:14 TIBC 278 mcg/dl 05/20/21 00:14 % Saturation 3.9 % (20-50) L 05/20/21 00:14 Unsat Iron Binding 267 ug/dL (112-347) 05/20/21 00:14 Ferritin 148 ng/mL (15-150) 05/20/21 00:14 Total Bilirubin 0.6 mg/dL (0.15-1.2) 05/23/21 02:55 AST 39 U/L (0-32) H 05/23/21 02:55 ALT 22 U/L (0-33) 05/23/21 02:55 Alkaline Phosphatase 119 IU/L (35-105) H 05/23/21 02:55 Troponin T Gen 5 ng/L 22 ng/L (0-10) H 05/20/21 22:27 Troponin T Baseline 41 ng/L (0-10) H 05/20/21 00:14 Troponin T 120 Minute 24.07 ng/L (0-10) H 05/20/21 06:56 Delta Troponin T -16.93 ABS# (0-10) L 05/20/21 06:56 Troponin T Hi Sens 6Hr 20.50 ng/L (0-10) H 05/20/21 10:17 Troponin T Hi Sens 6Hr Delta -20.5 ng/L (0-12) L 05/20/21 10:17 C-Reactive Protein 17.4 mg/L (0.0-4.9) H 05/22/21 05:00 NT-Pro-B Natriuret Pep 2043 pg/mL (0-125) H 05/23/21 02:55 Total Protein 6.1 g/dL (6.6-8.7) L 05/23/21 02:55 Albumin 2.8 g/dL (3.5-5.2) L 05/23/21 02:55 Globulin 3.3 g/dL (1.3-4.6) 05/23/21 02:55 Procalcitonin 0.11 ng/mL (0-0.5) 05/22/21 05:00 TSH 1.48 uIU/mL (0.27-4.20) 05/20/21 00:14 Urine Color Yellow (Yellow) 05/20/21 04:17 Urine Appearance Clear (CLEAR) 05/20/21 04:17 Urine pH 5 (5-7) 05/20/21 04:17 Ur Specific [place] 1.005 (1.005-1.030) 05/20/21 04:17 Urine Protein Neg (Negative) 05/20/21 04:17 Urine Glucose (UA) Norm (Normal) 05/20/21 04:17 Urine Ketones Negative (Negative) 05/20/21 04:17 Urine Blood Neg (Negative) 05/20/21 04:17 Urine Nitrate Negative (Negative) 05/20/21 04:17 Urine Bilirubin Neg (Negative) 05/20/21 04:17 Urine Urobilinogen Norm mg/dL (Negative) 05/20/21 04:17 Ur Leukocyte Esterase Negative (Negative) 05/20/21 04:17 Vancomycin Trough 10.3 ug/mL (10-15) 05/21/21 17:20 Micro: Microbiology 05/20/21 04:17 Urine Culture - Final Urine,Clean Catch Escherichia coli Klebsiella pneumoniae A&P Assessment and plan (1) Multifocal pneumonia: Status: Acute (2) Hypotension: Status: Acute (3) Acute on chronic respiratory failure with hypoxia: Status: Acute (4) Acute respiratory distress syndrome (ARDS) due to 2019 novel coronavirus: Status: Acute (5) CAD (coronary artery disease): Status: Acute (6) Diabetes: Status: Acute (7) Hx of CABG: Status: Acute (8) Fluid overload: Status: Acute (9) Sepsis: Status: Acute Plan #Acute hypoxic respiratory failure secondary to ARDS due to COVID-19 pneumonia and fluid overload #Septic shock-secondary to urosepsis-shock resolved #Urosepsis secondary to E. coli/Klebsiella #History of CAD s/p CABG #Tr-xotmae-unneanme underlying COPD #Diabetes -COVID-19 + 05/13/2021-on remdesivir and dexamethasone -Gradual worsening FiO2 requirements since admission requiring up to 100% on high flow nasal cannula today morning; -Patient received decent amount of fluids for initial hypotensive episode possibly secondary to sepsis and with underlying CAD s/p CABG-appears fluid overloaded bilateral diffuse crackles-responded well to Lasix 1 dose-put out 3 L and FiO2 down to 55% on BiPAP 03/12 -we will try to switch to high flow nasal cannula -BNP greater than 2000, echocardiogram showed normal ejection fraction 55 to 60% with grade 1 diastolic dysfunction, mild MR, moderate AR, mild TR, moderate pulmonary hypertension -Patient has anxiety and was tachypneic-started on Precedex -With previous smoking history-cannot rule out underlying COPD-DuoNeb 4 times daily and Pulmicort nebulizations -CTA 05/20/2019-negative for PE -Urine cultures positive for pansensitive Klebsiella/E. coli-covered with Rocephin and azithromycin for admission which were broadened to vancomycin and imipenem for broader coverage -Urine Legionella, urine bacterial uhsbufmg-bazoyugw-ay will send MRSA nares if negative will DC vancomycin -Sugars well controlled with insulin coverage -DVT prophylaxis Lovenox -Full code -Family updated Will give 1 more dose of Lasix 40 mg today evening, closely monitor renal functions, input output, oxygen saturations If clinically deteriorates-may need intubation for supportive care Hope is that her urosepsis will respond to antibiotics, diuresing her will improve her FiO2 and she will be able to be discharged to LTAC in 2 to 3 days provided she does not desaturate requiring intubation Recommendations conveyed to hospitalist, RN, RT taking care of the patient Consult Attestations Medical Necessity Statement: Acute hypoxic respiratory failure secondary to ARDS due to COVID-19 pneumonia requiring high flow oxygen needs close ICU monitoring, fluid overload-responding to diuresis, urosepsis on antibiotics-needs close monitoring for at least 48 hours Time Spent in Patient Care: Greater than 35 minutes (>than 50% of time spent in counselling and/or direct pt care on unit). Critical Care Time: The high probability of a clinically significant, sudden or life threatening deterioration of the patient's [pulmonary, cardiac, renal, endocrine, infectious system(s) required my full and direct attention, intervention and personal management. The critical care time is as shown. This time is in addition to time spent performing any reported procedures but includes the following: [x] Data and vital sign review and interpretation [x] Patient assessment, examination and intervention [x] Documentation [x] Medication orders and management Critical Care Time (min): 65 Coding Level of Care Code New Pt Acute Stummel Selector for Chg Fwd Patient Type New History Comprehensive Exam Comprehensive Medical Decision Making High Complexity Diagnoses Multifocal pneumonia J18.9 Hypotension I95.9 Acute on chronic respiratory failure with hypoxia J96.21 Acute respiratory distress syndrome (ARDS) due to 2019 novel coronavirus U07.1; J80 CAD (coronary artery disease) I25.10 Diabetes E11.9 Hx of CABG Z95.1 Fluid overload E87.70 Sepsis A41.9 Time Spent (min) 45
[2021-05-23 18:32] LABS: Glucose Point of Care 212 mg/dL (70-110)
[2021-05-23] MEDS: FUROsemide 10 mg/mL SDV 4mL 40 MG IVP (18:35)
[2021-05-23] MEDS: vancomycin 1,250 MG/250 ML PIGGYBACK 250 MG IV (18:35)
[2021-05-23] MEDS: atorvastatin 40 mg Tablet PO (20:33)
--- NOTE | 2021-05-23 21:00 | PC.NURSE ---
Pt. very short of breath with labored breathing. Increased FIO2 to 100% on high flow nasal cannula. Pt. O2 saturation still at 86%. CAlled RT and will place patient on bipap .
--- NOTE | 2021-05-23 21:30 | PC.NURSE ---
Pt. now resting comfortably on bipap. No needs identified at this time.
[2021-05-24] VITALS (45 sets, daily range): BP systolic 76–173; BP diastolic 52–102; PULSE 51–79; RESP 9–41; TEMP 36.3–36.8; O2SAT 81–100
--- NOTE | 2021-05-24 | USCV_ITS ---
LE Venous Duplex BILATERAL Lucia Barnes Age: 60 Gender: F : 1960 Exam Date: 05/24/2021 13:03 Ordering Phys: Krish Ross MD Technologist: STEVEN Exam Location: [facility] [place] Indication: Elevated Dimer PROCEDURES: Venous duplex imaging was performed in bilateral lower extremities. The following venous structures were evaluated: common femoral vein, profunda vein, proximal portion of the greater saphenous vein, superficial femoral vein, and the popliteal vein. In addition, the posterior tibial and peroneal trunk were evaluated. Bilaterally, the common femoral, superficial femoral, profunda femoral, popliteal, posterior tibial, greater saphenous veins, and the peroneal trunk were identified and interrogated in the standard fashion. These veins were found to be easily compressible with spontaneous blood flow. No evidence of insufficiency or thrombus noted. Serial compression, augmentation maneuvers, and spectral Doppler flow evaluation were performed. FINDINGS: No evidence of DVT seen in any vessel visualized at this time. CONCLUSIONS No evidence of right lower extremity DVT. No evidence of left lower extremity DVT. Charles Shanks MD (Electronically Signed) Final Date: 25 May 2021 09:28 S
[2021-05-24] MEDS: dexmedeTOMIDine 0.9 % NaCL 400 MCG/100 ML PREMIX 16.06 MCG IV ×4 (03:36→23:15)
[2021-05-24 03:41] LABS: Basophils % 0.1 %; Hematocrit 29.6 % (37.0-47.0); Lymphocytes # 0.6 10^3/uL (0.8-4.8); Lymphocytes % 6.6 %; Mean Corpuscular HGB Conc 30.4 g/dL (30.0-36.0); Mean Corpuscular Hemoglobin 23.1 pg (28.0-34.0); Mean Corpuscular Volume 76.1 fl (81-99); Mean Platelet Volume 11.1 fL (7.4-10.4); Monocytes # 0.3 10^3/uL (0.2-0.9); Monocytes % 2.7 %; Neutrophils # 8.38 10^3/uL (1.8-7.7); Neutrophils % 89.3 %; Nucleated Red Blood Cells % 0.3 %; Platelet Count 269 10^3/cmm (130-400); Red Blood Count 3.89 10^6/uL (4.1-5.3); Red Cell Distribution Width 17.8 % (12.1-15.1); White Blood Count 9.4 10^3/uL (4.0-10.0)
[2021-05-24 04:09] LABS: Alanine Aminotransferase 19 U/L (0-33); Albumin Level 2.6 g/dL (3.5-5.2); Alkaline Phosphatase 116 IU/L (35-105); Aspartate Amino Transferase 37 U/L (0-32); Blood Urea Nitrogen 18 mg/dL (6-20); Calcium 8.6 mg/dL (8.5-10.5); Carbon Dioxide 21 mmol/L (22-29); Chloride 103 mmol/L (98-107); Globulin 3.8 g/dL (1.3-4.6); Glomerular Filtration Rate 163.4 mL/min (90-130); Glucose 207 mg/dL (65-115); Osmolality Calculated 292 mOsm/kg (285-295); Sodium 137 mmol/L (136-145); Total Bilirubin 0.8 mg/dL (0.15-1.2); Total Protein 6.4 g/dL (6.6-8.7)
[2021-05-24 04:10] LABS: Magnesium 1.7 mg/dL (1.7-2.3)
[2021-05-24 04:34] LABS: D Dimer 1.36 ug/mIFEU (0-0.59)
[2021-05-24] MEDS: pantoprazole 40 mg SDV IVP ×2 (05:06→16:02)
[2021-05-24] MEDS: remdesivir 100 MG in sodium chloride 0.9% (100 ml) 80 ML IV (05:06)
[2021-05-24] MEDS: vancomycin 1,250 MG/250 ML PIGGYBACK 250 MG IV ×2 (05:07→17:19)
[2021-05-24] MEDS: dexamethasone 10 mg/mL INJ 6 MG IVP (05:07)
[2021-05-24] MEDS: FUROsemide 10 mg/mL SDV 4mL 40 MG IVP ×2 (07:25→19:42)
--- NOTE | 2021-05-24 07:50 | XR_ITS ---
WS: [id number] XR chest 1V portable [id number] REASON FOR EXAM: pneumonia FINDINGS: Left arm PICC line remains in position. Vascular stent overlying the medial aspect of the left clavicle. No change in the diffuse lung opacities compared to 05/23/2021. Plate and screw fixation of old right humeral fracture. XR/XR chest 1V portable [id number] IMPRESSION: Stable abnormal chest.
[2021-05-24] MEDS: budesonide 0.5 mg/2 mL Neb INHALATION ×2 (08:44→19:52)
[2021-05-24] MEDS: ipratropium-albuterol 3 mL Neb INHALATION ×4 (08:44→19:52)
[2021-05-24] MEDS: clopidogrel 75 mg Tablet PO (08:53)
[2021-05-24] MEDS: docusate sodium 100 mg Capsule PO ×2 (08:53→17:10)
[2021-05-24] MEDS: cholecalciferol (vitamin D3) 1,000 unit Tablet 1000 UNIT PO (08:53)
[2021-05-24] MEDS: citalopram 20 mg Tablet PO (08:53)
[2021-05-24] MEDS: insulin lispro 100 unit/1 mL SUBCUT ×3 (08:53→17:15)
[2021-05-24] MEDS: levothyroxine 137 mcg Tablet PO (08:53)
[2021-05-24 09:01] LABS: ABG PCO2 31.7 mmHg (35-45); ABG PH Result 7.51 (7.35-7.45); Arterial Blood Gas Hematocrit 28.1 % (37-47); Base Excess ABG 2.1 mmol/L (-2.0-2.0); Blood Gas Allen Test Pos; Blood Gas Sample Type Arterial; Carboxyhemoglobin 0.2 %THgb (0.4-20.1); HGB O2 Sat 85.9 % (95-100); Ionized Calcium Level - ABG 1.2 mmol/L (1.1-1.4); Methemoglobin 1.1 % (0.4-1.5); PO2 ABG 54.8 mmHg (80.0-100.0); Potassium Level - ABG 3.3 mmol/L (3.5-5.0); Total Hemoglobin 9.2 g/dL (12-16)
--- NOTE | 2021-05-24 09:01 | PC.CHAP ---
Pastoral Care Encounter/Spiritual Assessment Type of Contact [] Declined data administrator visit [] Patient/Family/Request visit [] Outpatient visit [] Follow-up visit [] Physician referral [] Code/Alert [x] Routine visit [] Staff referral [] Actively dying [] Patient sleeping [] Family support [] [] Out of room [] Palliative care [] [] Receiving care in room [] Pre-surgical visit [] Trauma [] Long length of stay [x] ICU visit [] Other: Relational/Emotional Strength [] Patient feels connected with others/family/visitors/staff [] Distress [] Loneliness/isolation [] Abandonment Spirituality of Patient [] Person of Ashley [] Attends Evangelical of their Ashley [] Believes in Prayer [] Reads Bible or Orthodoxy materials [] There are Spiritual issues to be addressed Leader Tier Interventions [x] Prayer [] Active listening [] Non-anxious presence [] Spiritual/emotional support [] Crisis/trauma care [] Spiritual counseling [] Bereavement support [] Provided bereavement packet [] Provided Bible/devotional materials [] Provided toy/stuffed animal, coloring book to patient or family member [] Provided Communion [] Anointing/[place] [] Salvation [x] Completed spiritual assessment [] Other: Impact on Illness or Injury [] Angry [] Fearful [] Anxious [] Often cries [] Exhaustion [] Unable to work [] Unable to attend yazidism [] Unable to walk/stand [] Unable to read [] Unable to drive [] Unable to eat/drink [] Unable to sleep [] Unable to be with family [] Patient intubated [] Other: Summary Time spent with patient
[2021-05-24 09:02] LABS: Alveolar-Arterial Oxygen Gradi 33.9 mmHg (5-10); Blood Gas Operator Identificat BD; Blood Gas Sample Site Radial, right; Oxygen Device BIPAP
--- NOTE | 2021-05-24 09:02 | PC.CHAP ---
Pastoral Care Encounter/Spiritual Assessment Type of Contact [] Declined medical transcriber visit [] Patient/Family/Request visit [] Outpatient visit [] Follow-up visit [] Physician referral [] Code/Alert [] Routine visit [] Staff referral [] Actively dying [] Patient sleeping [] Family support [] [] Out of room [] Palliative care [] [] Receiving care in room [] Pre-surgical visit [] Trauma [] Long length of stay [] ICU visit [] Other: Relational/Emotional Strength [] Patient feels connected with others/family/visitors/staff [] Distress [] Loneliness/isolation [] Abandonment Spirituality of Patient [] Person of Ashley [] Attends Restorationism of their Ashley [] Believes in Prayer [] Reads Bible or Quaker materials [] There are Spiritual issues to be addressed Pressroom Foreman Interventions [] Prayer [] Active listening [] Non-anxious presence [] Spiritual/emotional support [] Crisis/trauma care [] Spiritual counseling [] Bereavement support [] Provided bereavement packet [] Provided Bible/devotional materials [] Provided toy/stuffed animal, coloring book to patient or family member [] Provided Communion [] Anointing/[place] [] Salvation [] Completed spiritual assessment [] Other: Impact on Illness or Injury [] Angry [] Fearful [] Anxious [] Often cries [] Exhaustion [] Unable to work [] Unable to attend orthodoxy [] Unable to walk/stand [] Unable to read [] Unable to drive [] Unable to eat/drink [] Unable to sleep [] Unable to be with family [] Patient intubated [] Other: Summary Time spent with patient Pastoral Care Encounter/Spiritual Assessment Type of Contact [] Declined medical transcriber visit [] Patient/Family/Request visit [] Outpatient visit [] Follow-up visit [] Physician referral [] Code/Alert [] Routine visit [] Staff referral [] Actively dying [] Patient sleeping [] Family support [] [] Out of room [] Palliative care [] [] Receiving care in room [] Pre-surgical visit [] Trauma [] Long length of stay [] ICU visit [] Other: Relational/Emotional Strength [] Patient feels connected with others/family/visitors/staff [] Distress [] Loneliness/isolation [] Abandonment Spirituality of Patient [] Person of Ashley [] Attends Restorationism of their Ashley [] Believes in Prayer [] Reads Bible or Quaker materials [] There are Spiritual issues to be addressed Pressroom Foreman Interventions [] Prayer [] Active listening [] Non-anxious presence [] Spiritual/emotional support [] Crisis/trauma care [] Spiritual counseling [] Bereavement support [] Provided bereavement packet [] Provided Bible/devotional materials [] Provided toy/stuffed animal, coloring book to patient or family member [] Provided Communion [] Anointing/[place] [] Salvation [] Completed spiritual assessment [] Other: Impact on Illness or Injury [] Angry [] Fearful [] Anxious [] Often cries [] Exhaustion [] Unable to work [] Unable to attend orthodoxy [] Unable to walk/stand [] Unable to read [] Unable to drive [] Unable to eat/drink [] Unable to sleep [] Unable to be with family [] Patient intubated [] Other: Summary Time spent with patient
[2021-05-24] MEDS: HYDROcodone-acetaminophen 5-325 mg Tablet 1 TAB PO ×3 (09:22→21:10)
[2021-05-24] MEDS: LORazepam 2 mg/mL INJ 1 mL 1 MG IVP (09:23)
[2021-05-24 09:43] LABS: Glucose Point of Care 252 mg/dL (70-110)
[2021-05-24 11:39] LABS: Glucose Point of Care 324 mg/dL (70-110)
--- NOTE | 2021-05-24 11:43 | P.PN_ITS ---
Subjective Subjective: Interval history: Diuresing nicely. Was very anxious earlier today, but better after Ativan and Precedex turned up. Tolerating high flow now. Medications: Reviewed: Yes Vitals/I&O/Wt Last Vital Signs Temp 97.4 F L 05/24/21 05:31 Pulse 61 05/24/21 11:32 Resp 30 H 05/24/21 11:32 BP 171/87 05/24/21 06:31 Pulse Ox 94 05/24/21 11:32 05/23/21 05/24/21 05/24/21 22:59 06:59 14:59 Intake Total 785.022 / 1627.292 209.743 / 1837.035 479.516 / 479.516 Output Total 2750 / 4450 350 / 4800 Balance -1964.978 / -2822.708 -140.257 / -2962.965 479.516 / 479.516 Physical Exam Narrative: EXAM NARRATIVE: General exam tachypneic Neck is supple Cardiovascular regular rate and rhythm, no murmur Lungs scattered rales Abdomen is soft. Bowel sounds noted. Extremities no cyanosis or clubbing. Trace edema Urinary Catheter Management: Musa: Cath Placed During This Visit: yes Reason for Continuing Indwelling Catheter: Accurate Measurement of Urinary Output in Critically Ill Patients Urinary Catheter Date of Insertion: 05/23/21 Urinary Catheter Time of Insertion: 08:32 Data : 05/24/21 03:27 05/24/21 03:27 A&P Assessment and plan (1) 2019 novel coronavirus-infected pneumonia (NCIP): On remdesivir, dexamethasone Pulmonary toilet Incentive spirometry, Acapella Wean oxygen as tolerated Antibiotics expanded yesterday to Primaxin and vancomycin CRP had decreased significantly. Holding baricitinib, or Actemra secondary to concern of consolidation on chest x-ray, that may represent bacterial pneumonia. CTA no pulmonary embolism. Mild to moderate changes consistent with COVID-19 pneumonia. Mild elevation of dimer. Check venous duplex Continue Lovenox for DVT prophylaxis. Stop aspirin as also on Plavix Concern of significant fluid overload. Diuresing with Lasix with good results and some clinical improvement. Echocardiogram demonstrated preserved EF, moderate mitral regurgitation, moderate pulmonary hypertension and preserved heart function. Secondary to concern of consolidative pneumonia awaiting sputum culture. Status: Acute (2) Hypotension: Resolved Status: Acute (3) Anemia: Has iron deficiency anemia Continue Protonix Await stool Hemoccult Iron transfusion was given May 22 Status: Acute (4) CAD (coronary artery disease): Continue Plavix, aspirin Appears to have an element of chronic chest pain. She is on Ranexa at home Continue to diurese. 40 mg of Lasix given IV this morning, and will likely need another dose this afternoon. Musa was placed for accurate I's and O's. Status: Acute (5) Diabetes: Sliding scale insulin Status: Acute (6) Sepsis: Resolved Await MRSA PCR She does not need any more fluid resuscitation. Status: Acute Plan Hypomagnesemia. Supplemented Hypokalemia, resolved UTI. Urine culture growing Klebsiella, E. coli. On Primaxin. Full code Lovenox for DVT prophylaxis Attestations Medical Necessity Statement*: Needs continued hospitalization secondary to severe COVID-19 pneumonia requiring high flow oxygen Critical Care Time: The high probability of a clinically significant, sudden or life threatening deterioration of the patient's [cardiac, respiratory system(s) required my full and direct attention, intervention and personal management. The critical care time is as shown. 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
[2021-05-24] MEDS: enoxaparin 40 mg/0.4 mL Syringe SUBCUT (12:24)
[2021-05-24 16:39] LABS: Anion Gap 14.9 (5-19); Blood Urea Nitrogen 17 mg/dL (6-20); Calcium 8.2 mg/dL (8.5-10.5); Carbon Dioxide 19 mmol/L (22-29); Chloride 100 mmol/L (98-107); Glomerular Filtration Rate 227.7 mL/min (90-130); Glucose 195 mg/dL (65-115); Osmolality Calculated 279 mOsm/kg (285-295); Sodium 131 mmol/L (136-145)
[2021-05-24 16:43] LABS: Potassium 2.9 mmol/L (3.5-5.1)
[2021-05-24] MEDS: lidocaine 1% 5 ML in potassium chloride premix 100 ML 25 ML IV ×2 (17:10→21:12)
[2021-05-24 17:13] LABS: Glucose Point of Care 206 mg/dL (70-110)
--- NOTE | 2021-05-24 19:05 | PC.NURSE ---
Shift Note: Pt up in the chair throughout the shift. She is drowsy doesn't want to do much and barely opens her eyes. She complains of being anxious and pain in her back or head. Precedex infusing at 0.8mcg/kg/min. Xanax PO started today. SHe has a peripheral IV and a PICC in her left arm. She is not eating much if at all. She has been drinking more than enough fluids. Her daughter came in to visit, brought soup and soda for pt. Urine output of 1650 ml. She is edematous in her arms bilat. Frequent safety and comfort rounds continue. Orders and/or nursing care completed as indicated. Patient monitored for response to intervention and treatment(s). Education provided includes Xanax, Flutter valve, IS and deep breathing Patient and/or senior patient account representative verbalizes understanding. Pt requires frequent encouragement. . Will continue to monitor.
[2021-05-24 20:54] LABS: Glucose Point of Care 259 mg/dL (70-110)
[2021-05-24] MEDS: ALPRAZolam 0.5 mg Tablet 1 MG PO (21:10)
[2021-05-24] MEDS: atorvastatin 40 mg Tablet PO (21:10)
[2021-05-24] MEDS: insulin glargine 100 units/1 mL 10 UNIT SUBCUT (21:11)
[2021-05-24] MEDS: metoclopramide 5 mg/mL SDV 2 mL IVP (21:11)
[2021-05-25] VITALS (41 sets, daily range): BP systolic 63–166; BP diastolic 41–106; PULSE 55–101; RESP 14–43; TEMP 36.8–37.4; O2SAT 86–97
--- NOTE | 2021-05-25 01:30 | PC.NURSE ---
Entered patient's room and found PICC line and 18g IV pulled out and lying on the ground. L Upper Arm site is bruised and edematous with minimal bleeding noted. Both sites dressed with gauze and tape.
[2021-05-25] MEDS: pantoprazole 40 mg SDV IVP ×2 (04:07→16:26)
[2021-05-25 05:21] LABS: Basophils % 0.1 %; Hematocrit 30.1 % (37.0-47.0); Hemoglobin 9.2 g/dL (11.5-15.3); Lymphocytes # 0.6 10^3/uL (0.8-4.8); Mean Corpuscular HGB Conc 30.6 g/dL (30.0-36.0); Mean Corpuscular Hemoglobin 23.4 pg (28.0-34.0); Mean Corpuscular Volume 76.4 fl (81-99); Mean Platelet Volume 11.6 fL (7.4-10.4); Monocytes # 0.3 10^3/uL (0.2-0.9); Monocytes % 3.7 %; Neutrophils # 7.62 10^3/uL (1.8-7.7); Neutrophils % 88.3 %; Nucleated Red Blood Cells % 0.2 %; Platelet Count 288 10^3/cmm (130-400); Red Blood Count 3.94 10^6/uL (4.1-5.3); Red Cell Distribution Width 17.9 % (12.1-15.1); White Blood Count 8.6 10^3/uL (4.0-10.0)
[2021-05-25] MEDS: dexamethasone 10 mg/mL INJ 6 MG IVP (05:28)
[2021-05-25] MEDS: vancomycin 1,250 MG/250 ML PIGGYBACK 250 MG IV ×2 (05:28→18:29)
[2021-05-25 05:39] LABS: Blood Urea Nitrogen 17 mg/dL (6-20); Calcium 8.6 mg/dL (8.5-10.5); Carbon Dioxide 21 mmol/L (22-29); Chloride 100 mmol/L (98-107); Glomerular Filtration Rate 227.7 mL/min (90-130); Glucose 227 mg/dL (65-115); Osmolality Calculated 285 mOsm/kg (285-295); Sodium 133 mmol/L (136-145)
--- NOTE | 2021-05-25 05:46 | PC.NURSE ---
Shift Note Frequent safety and comfort rounds performed. Assisted the patient from the chair to bed so she could rest for the night. Patient tolerated heated high flow well with SpO2 remaining between 85-90% when the patient was at rest. Education provided includes fall precautions. Patient verbalized understanding. Patient has remained lethargic all night with minimal anxiety noted. Decreased precedex gtt once for heart rate 49-51. Heart rate then increased to 55-60's. No other gtt changes were made. Overall, the patient had an uneventful night.
[2021-05-25 06:20] LABS: Add RBC Morph Yes; Slide Review Slide Review Perform
[2021-05-25 06:21] LABS: Anisocytosis 1+; Burr Cells 1+; Ovalocytes 2+; Poikilocytosis 2+; RBC Morph Comp No
[2021-05-25] MEDS: dexmedeTOMIDine 0.9 % NaCL 400 MCG/100 ML PREMIX 14.05 MCG IV (06:26)
--- NOTE | 2021-05-25 07:15 | PC.SOCIAL ---
IMM not updated IMM not updated as patient isn't accepted to DC in the next 24-48 hours.
--- NOTE | 2021-05-25 07:42 | P.PN_ITS ---
Subjective Subjective: Interval history: Apparently pulled out PICC last night. Calm this morning without complaints. Nurses weaning Precedex down to see how she does. Did not diurese as well as expected yesterday despite to 40 mg doses of Lasix. Medications: Reviewed: Yes Vitals/I&O/Wt Last Vital Signs Temp 98.2 F 05/24/21 14:01 Pulse 57 L 05/25/21 06:00 Resp 19 H 05/25/21 06:00 BP 161/79 05/25/21 06:00 Pulse Ox 92 05/25/21 06:00 05/24/21 05/25/21 05/25/21 22:59 06:59 14:59 Intake Total 1530.833 / 2360.349 851.360 / 3211.709 Output Total 1950 / 3000 550 / 3550 Balance -419.167 / -639.651 301.360 / -338.291 Physical Exam Narrative: EXAM NARRATIVE: General exam tachypnea improved. 600 - overall. Had significant p.o. intake. Neck is supple Cardiovascular regular rate and rhythm, no murmur Lungs scattered rales Abdomen is soft. Bowel sounds noted. Extremities no cyanosis or clubbing. Edema upper extremities but not much in the lower. Urinary Catheter Management: Musa: Cath Placed During This Visit: yes Reason for Continuing Indwelling Catheter: Accurate Measurement of Urinary Output in Critically Ill Patients Urinary Catheter Date of Insertion: 05/23/21 Urinary Catheter Time of Insertion: 08:32 Data : 05/25/21 04:25 05/25/21 04:25 Micro: Microbiology 05/20/21 00:14 Blood Culture - Final Blood NO GROWTH AFTER 5 DAYS 05/20/21 00:00 Blood Culture - Final Blood NO GROWTH AFTER 5 DAYS A&P Assessment and plan (1) 2019 novel coronavirus-infected pneumonia (NCIP): On remdesivir, dexamethasone Pulmonary toilet Incentive spirometry, Acapella Wean oxygen as tolerated Antibiotics expanded to Primaxin and vancomycin. Continue these currently. CRP had decreased significantly. Holding baricitinib, or Actemra secondary to concern of consolidation on chest x-ray, that may represent bacterial pneumonia. CTA no pulmonary embolism. Mild to moderate changes consistent with COVID-19 pneumonia. Mild elevation of dimer. Venous duplex taken, report pending Continue Lovenox for DVT prophylaxis. Stop aspirin as also on Plavix Concern of significant fluid overload. Diuresing with Lasix with good results and some clinical improvement. Diuresis not ideal yesterday. 60 mg of Lasix IV this morning. Echocardiogram demonstrated preserved EF, moderate mitral regurgitation, moderate pulmonary hypertension and preserved heart function. Secondary to concern of consolidative pneumonia awaiting sputum culture. Has significant anxiety affecting treatment. Xanax scheduled has been started. She is on a Precedex drip. We will try to wean this slightly today. Currently on high flow oxygen with an FiO2 of 70%. Hopefully this can wean down some today. Status: Acute (2) Hypotension: Resolved Status: Acute (3) Anemia: Has iron deficiency anemia Continue Protonix Await stool Hemoccult Iron transfusion was given May 22 Hemoglobin currently stable Status: Acute (4) CAD (coronary artery disease): Continue Plavix, aspirin Appears to have an element of chronic chest pain. She is on Ranexa at home Diurese further. 60 mg Lasix IV today Musa was placed for accurate I's and O's. Status: Acute (5) Diabetes: Sliding scale insulin Status: Acute (6) Sepsis: Resolved Await MRSA PCR. Still not collected. I notified nurse. She does not need any more fluid resuscitation. Status: Acute Plan Hypomagnesemia. Supplemented Hypokalemia, resolved UTI. Urine culture growing Klebsiella, E. coli. On Primaxin. Full code Lovenox for DVT prophylaxis Attestations Medical Necessity Statement*: Needs continued hospitalization secondary to severe COVID-19 pneumonia, fluid overload requiring high flow oxygen. Critical Care Time: The high probability of a clinically significant, sudden or life threatening deterioration of the patient's [cardiac, pulmonary system(s) required my full and direct attention, intervention and personal management. The critical care time is as shown. This time is in addition to time spent performing any reported procedures but includes the following: [x] Data and vital sign review and interpretation [x] Patient assessment, examination and intervention [x] Documentation [x] Medication orders and management Critical Care Time (min): 30 Coding Level of Care Code Acute Order Dispatcher Chief for Thor Garcia Diagnoses 2019 novel coronavirus-infected pneumonia (NCIP) U07.1; J12.82 Hypotension I95.9 Anemia D64.9 CAD (coronary artery disease) I25.10 Diabetes E11.9 Sepsis A41.9
[2021-05-25] MEDS: ipratropium-albuterol 3 mL Neb INHALATION ×4 (08:07→20:04)
[2021-05-25] MEDS: budesonide 0.5 mg/2 mL Neb INHALATION ×2 (08:07→20:04)
[2021-05-25 08:32] LABS: Glucose Point of Care 242 mg/dL (70-110)
[2021-05-25] MEDS: citalopram 20 mg Tablet PO (08:37)
[2021-05-25] MEDS: FUROsemide 10 mg/mL SDV 10mL 60 MG IVP (08:37)
[2021-05-25] MEDS: levothyroxine 137 mcg Tablet PO (08:37)
[2021-05-25] MEDS: ALPRAZolam 0.5 mg Tablet 1 MG PO (08:37)
[2021-05-25] MEDS: cholecalciferol (vitamin D3) 1,000 unit Tablet 1000 UNIT PO (08:37)
[2021-05-25] MEDS: clopidogrel 75 mg Tablet PO (08:37)
[2021-05-25] MEDS: docusate sodium 100 mg Capsule PO (08:37)
[2021-05-25] MEDS: insulin lispro 100 unit/1 mL SUBCUT ×3 (08:38→17:19)
--- NOTE | 2021-05-25 09:15 | PC.NURSE ---
Pt up to chair, she ahd refused earlier at 0820, wanted to wait until 0900. She transferred with 1 assist until her stumbled and her knees buckled. SHe was lowered to the floor without incident. She got back up with 2 assist to the chair. She tolerated this well.
--- NOTE | 2021-05-25 09:39 | PC.CHAP ---
Pastoral Care Encounter/Spiritual Assessment Type of Contact [] Declined extractor tender raw stock visit [] Patient/Family/Request visit [] Outpatient visit [] Follow-up visit [] Physician referral [] Code/Alert [x] Routine visit [] Staff referral [] Actively dying [x] Patient sleeping [] Family support [] [] Out of room [] Palliative care [] [] Receiving care in room [] Pre-surgical visit [] Trauma [] Long length of stay [x] ICU visit [] Other: Relational/Emotional Strength [] Patient feels connected with others/family/visitors/staff [] Distress [] Loneliness/isolation [] Abandonment Spirituality of Patient [] Person of Ashley [] Attends Jainism of their Ashley [] Believes in Prayer [] Reads Bible or Confucianism materials [] There are Spiritual issues to be addressed Planting Material Remover Interventions [x] Prayer [] Active listening [] Non-anxious presence [] Spiritual/emotional support [] Crisis/trauma care [] Spiritual counseling [] Bereavement support [] Provided bereavement packet [] Provided Bible/devotional materials [] Provided toy/stuffed animal, coloring book to patient or family member [] Provided Communion [] Anointing/[place] [] Salvation [x] Completed spiritual assessment [] Other: Impact on Illness or Injury [] Angry [] Fearful [] Anxious [] Often cries [] Exhaustion [] Unable to work [] Unable to attend sikhism [] Unable to walk/stand [] Unable to read [] Unable to drive [] Unable to eat/drink [] Unable to sleep [] Unable to be with family [] Patient intubated [] Other: Summary Time spent with patient
[2021-05-25 12:16] LABS: Glucose Point of Care 362 mg/dL (70-110)
[2021-05-25] MEDS: HYDROcodone-acetaminophen 5-325 mg Tablet 1 TAB PO ×3 (12:19→19:53)
[2021-05-25] MEDS: enoxaparin 40 mg/0.4 mL Syringe SUBCUT (12:19)
[2021-05-25] MEDS: ALPRAZolam 0.5 mg Tablet PO ×2 (15:52→21:35)
--- NOTE | 2021-05-25 16:00 | PC.NURSE ---
Ultra sound IV started. 3 attempts , 2 nurses. 18 gauge to Left AC.
[2021-05-25 17:08] LABS: Glucose Point of Care 330 mg/dL (70-110)
[2021-05-25 17:48] LABS: Vancomycin Trough 12.6 ug/mL (10-15)
--- NOTE | 2021-05-25 18:13 | PC.NURSE ---
Shift Note Pt up to chair after 0900 this am. She has tolerated it well. She remains on Heated high flow at 45L, FIO2 decreased to 60. She was unsteady this am and stumbled going to chair , she was lowered to the floor , then assisted up with 2 assist to chair. Her O2 sats stayed above 89% throughout the incident. Precedex weaned off, She is tolerating it well. She is much more alert and responsive today. Her daughter came by and brought her more food stuff. She took in more orally than she had in output again today. Urine output of 1000ml. Frequent safety and comfort rounds continue. Orders and/or nursing care completed as indicated. Patient monitored for response to intervention and treatment(s). Education provided includes Xanax, hydrocodone, Lovenox, IS and flutter valve Patient and/or solar sales representative and assessor verbalized understanding. Will continue to monitor.
[2021-05-25] MEDS: FUROsemide 10 mg/mL SDV 4mL 40 MG IVP (18:30)
[2021-05-25] MEDS: potassium chloride ER 20 mEq Tablet 40 MEQ PO (18:30)
[2021-05-25 21:28] LABS: Glucose Point of Care 274 mg/dL (70-110)
[2021-05-25] MEDS: atorvastatin 40 mg Tablet PO (21:35)
[2021-05-25] MEDS: insulin glargine 100 units/1 mL 10 UNIT SUBCUT (21:35)
[2021-05-25] MEDS: LORazepam 2 mg/mL INJ 1 mL 0.5 MG IVP (22:01)
--- NOTE | 2021-05-25 22:15 | PC.NURSE ---
Family Update Daughter, Nemo Black, called and received update on patient status. Oxygen requirements, lab results, and medications received were topics of discussion. Daughter verbalized understanding and stated no further questions.
[2021-05-26] VITALS (37 sets, daily range): BP systolic 84–138; BP diastolic 37–83; PULSE 16–106; RESP 16–99; TEMP 36.4–36.6; O2SAT 93–100; BMI 29.2
[2021-05-26] MEDS: HYDROcodone-acetaminophen 5-325 mg Tablet 1 TAB PO ×4 (00:36→21:19)
--- NOTE | 2021-05-26 01:07 | PC.NURSE ---
To Bed Patient transferred to bed from chair with 2 nurse assist. Patient severely weak, attempted to stand two times before achieving movement. Once up, patient swiveled onto bed. Oxygen saturation briefly dropped to 79%, once settled, oxygen saturation recovered back to 94%. All other vitals stable.
[2021-05-26] MEDS: metoclopramide 5 mg/mL SDV 2 mL IVP (01:11)
--- NOTE | 2021-05-26 01:29 | PC.NURSE ---
Dilaudid Patient complaining of lingering pain after PO pain medication and requested IV medication. Dr. Warren contacted and notified of pain. Verbal order received for Dilaudid IVP 0.5 mg one time for pain; Dr. Warren aware of allergies at time of order.
[2021-05-26] MEDS: HYDROmorphone 1 mg/mL INJ 1 mL 0.5 MG IVP (02:18)
--- NOTE | 2021-05-26 02:36 | PC.NURSE ---
BP Patient's blood pressure 90/40. Patient alert and oriented, able to answer questions correctly. Dr. Warren contacted about hypotension. No new orders received; nurse to monitor for further decreases.
--- NOTE | 2021-05-26 03:05 | PC.NURSE ---
BP Patient's BP MAP 54. Dr. Warren updated on situation. No orders received, nurse to monitor for decreases.
[2021-05-26] MEDS: pantoprazole 40 mg SDV IVP ×2 (04:01→15:20)
[2021-05-26 05:10] LABS: Basophils % 0.1 %; Hematocrit 27.8 % (37.0-47.0); Hemoglobin 8.3 g/dL (11.5-15.3); Lymphocytes # 0.8 10^3/uL (0.8-4.8); Lymphocytes % 8.7 %; Mean Corpuscular HGB Conc 29.9 g/dL (30.0-36.0); Mean Corpuscular Hemoglobin 23.4 pg (28.0-34.0); Mean Corpuscular Volume 78.5 fl (81-99); Mean Platelet Volume 11.5 fL (7.4-10.4); Monocytes # 0.3 10^3/uL (0.2-0.9); Monocytes % 2.8 %; Neutrophils # 7.93 10^3/uL (1.8-7.7); Neutrophils % 87.6 %; Nucleated Red Blood Cells % 0 %; Platelet Count 333 10^3/cmm (130-400); Red Blood Count 3.54 10^6/uL (4.1-5.3); White Blood Count 9.1 10^3/uL (4.0-10.0)
[2021-05-26] MEDS: dexamethasone 10 mg/mL INJ 6 MG IVP (05:35)
[2021-05-26] MEDS: vancomycin 1,250 MG/250 ML PIGGYBACK 250 MG IV ×2 (05:36→18:19)
[2021-05-26 05:39] LABS: Anion Gap 13.5 (5-19); Blood Urea Nitrogen 15 mg/dL (6-20); Calcium 8.1 mg/dL (8.5-10.5); Carbon Dioxide 23 mmol/L (22-29); Chloride 102 mmol/L (98-107); Glomerular Filtration Rate 163.4 mL/min (90-130); Glucose 168 mg/dL (65-115); Osmolality Calculated 285 mOsm/kg (285-295); Potassium 3.5 mmol/L (3.5-5.1); Sodium 135 mmol/L (136-145)
[2021-05-26 07:46] LABS: Glucose Point of Care 197 mg/dL (70-110)
--- NOTE | 2021-05-26 07:51 | PC.NURSE ---
During first assessment this am, pt agreed to get out of bed at 0900. She told this nurse she wasn't hurting but she was anxious. Resp. even and unlabored. After physician entered room she stated she just hurt so bad, then her anxiety goes up and she then gets 'sick to my stomach'. Pt started moaning with breaths.
[2021-05-26] MEDS: ipratropium-albuterol 3 mL Neb INHALATION ×4 (07:52→19:52)
[2021-05-26] MEDS: budesonide 0.5 mg/2 mL Neb INHALATION ×2 (07:52→19:52)
[2021-05-26] MEDS: FUROsemide 10 mg/mL SDV 4mL 40 MG IVP ×2 (09:12→18:20)
[2021-05-26] MEDS: cholecalciferol (vitamin D3) 1,000 unit Tablet 1000 UNIT PO (09:20)
[2021-05-26] MEDS: potassium chloride ER 20 mEq Tablet 40 MEQ PO ×3 (09:20→18:20)
[2021-05-26] MEDS: clopidogrel 75 mg Tablet PO (09:20)
[2021-05-26] MEDS: ALPRAZolam 0.5 mg Tablet PO ×3 (09:20→21:11)
[2021-05-26] MEDS: citalopram 20 mg Tablet PO (09:20)
[2021-05-26] MEDS: insulin lispro 100 unit/1 mL SUBCUT ×3 (09:21→18:19)
[2021-05-26] MEDS: levothyroxine 137 mcg Tablet PO (09:21)
[2021-05-26] MEDS: TRAMadol 50 mg Tablet PO ×2 (09:21→15:20)
--- NOTE | 2021-05-26 09:28 | PC.NURSE ---
MAR delays today related to care of multiple other critical patients.
--- NOTE | 2021-05-26 11:54 | P.PN_ITS ---
Subjective Subjective: Interval history: Lucia reports she is anxious, hurting all over. She acknowledges her breathing is better than it has been. Medications: Reviewed: Yes Vitals/I&O/Wt Last Vital Signs Temp 97.9 F 05/26/21 04:00 Pulse 101 H 05/26/21 11:11 Resp 16 05/26/21 11:11 BP 103/56 05/26/21 06:00 Pulse Ox 93 05/26/21 11:11 05/25/21 05/26/21 05/26/21 22:59 06:59 14:59 Intake Total 1310 / 2254.428 410 / 2664.428 100 / 100 Output Total 1000 / 1000 1000 / 2000 Balance 310 / 1254.428 -590 / 664.428 100 / 100 Weight last 48 hrs Weight 82.1 kg Physical Exam Narrative: EXAM NARRATIVE: General exam tachypnea improved. Slightly positive overall on fluid status. Will need fluid restriction. Neck supple no lymphadenopathy or thyromegaly Cardiovascular regular rate and rhythm, no murmur Lungs scattered rales Abdomen is soft. Bowel sounds noted. Extremities no cyanosis or clubbing. No edema lower extremities Urinary Catheter Management: Musa: Cath Placed During This Visit: yes Reason for Continuing Indwelling Catheter: Accurate Measurement of Urinary Output in Critically Ill Patients Urinary Catheter Date of Insertion: 05/23/21 Urinary Catheter Time of Insertion: 08:32 Data : 05/26/21 04:53 05/26/21 04:53 A&P Assessment and plan (1) 2019 novel coronavirus-infected pneumonia (NCIP): Remdesivir has been completed Currently on dexamethasone Pulmonary toilet Incentive spirometry, Acapella Wean oxygen as tolerated Antibiotics expanded to Primaxin and vancomycin. Continue these currently. If MRSA PCR negative, consider discontinuing vancomycin CRP had decreased significantly. Holding baricitinib, or Actemra secondary to concern of consolidation on chest x-ray, that may represent bacterial pneumonia. CTA no pulmonary embolism. Mild to moderate changes consistent with COVID-19 pneumonia. Mild elevation of dimer. Venous duplex taken, this was negative Continue Lovenox for DVT prophylaxis. Stop aspirin as also on Plavix Concern of significant fluid overload. Diuresing with Lasix with good results and some clinical improvement. 40 mg Lasix IV this morning. Start fluid restriction. Echocardiogram demonstrated preserved EF, moderate mitral regurgitation, moderate pulmonary hypertension and preserved heart function. Secondary to concern of consolidative pneumonia awaiting sputum culture. Has significant anxiety affecting treatment. Xanax scheduled has been started. Precedex has been discontinued. Currently on high flow oxygen with an FiO2 of 50%. Continue to attempt to wean. Status: Acute (2) Hypotension: Resolved Status: Acute (3) Anemia: Has iron deficiency anemia Continue Protonix Await stool Hemoccult Iron transfusion was given May 22 Hemoglobin currently stable Status: Acute (4) CAD (coronary artery disease): Continue Plavix, aspirin Appears to have an element of chronic chest pain. She is on Ranexa at home Musa was placed for accurate I's and O's. Status: Acute (5) Diabetes: Sliding scale insulin Status: Acute (6) Sepsis: Resolved Await MRSA PCR. She does not need any more fluid resuscitation. Status: Acute Plan Hypomagnesemia. Supplemented Hypokalemia, resolved UTI. Urine culture growing Klebsiella, E. coli. On Primaxin. Complaints of pain all over, anxiety. Add muscle relaxant as needed. Full code Lovenox for DVT prophylaxis Attestations Medical Necessity Statement*: Needs continued hospitalization secondary to severe COVID-19 pneumonia requiring high flow oxygen. Coding Level of Care Code Acute Machine Designer for [facility] Diagnoses 2019 novel coronavirus-infected pneumonia (NCIP) U07.1; J12.82 Hypotension I95.9 Anemia D64.9 CAD (coronary artery disease) I25.10 Diabetes E11.9 Sepsis A41.9
[2021-05-26] MEDS: cyclobenzaprine 10 mg Tablet PO ×2 (11:58→18:26)
[2021-05-26] MEDS: ondansetron 2 mg/ML SDV 2 mL 4 MG IVP (11:58)
--- NOTE | 2021-05-26 12:32 | PM.PN ---
Subjective Subjective: Interval history: Patient seen at bedside today Sitting up in chair and responding to appropriate questions Appeared in mild respiratory distress-currently on 35 L 55% high flow nasal cannula Says she still feels some shortness of breath She is diuresing well with Lasix but is also consuming too much oral fluids Other labs and imaging reviewed Medications: Reviewed: Yes Vitals/I&O/Wt Last Vital Signs Temp 97.9 F 05/26/21 04:00 Pulse 101 H 05/26/21 11:11 Resp 16 05/26/21 11:11 BP 103/56 05/26/21 06:00 Pulse Ox 93 05/26/21 11:11 05/25/21 05/26/21 05/26/21 22:59 06:59 14:59 Intake Total 1310 / 2254.428 410 / 2664.428 100 / 100 Output Total 1000 / 1000 1000 / 2000 Balance 310 / 1254.428 -590 / 664.428 100 / 100 Weight last 48 hrs Weight 181 lb Physical Exam Narrative: EXAM NARRATIVE: Elderly female, on high flow, in mild respiratory distress HEENT: conj clear, EOMI, PERRL, mmm, Neck: supple, no meningismus Heme: no cervical LAP Pulmonary: Normal breath sounds bilateral upper lobes;crackles both bases Cardiovascular: rrr, nl s1s2, no mrg Abdomen: soft, nt, nd, no r/g, bs+ Extremities: pulses +, no edema, no c/c : no CVA tenderness Skin: intact, no rash MSK: no back or neck pain Neurologic: grossly intact Urinary Catheter Management: Musa: Cath Placed During This Visit: yes Reason for Continuing Indwelling Catheter: Accurate Measurement of Urinary Output in Critically Ill Patients Urinary Catheter Date of Insertion: 05/23/21 Urinary Catheter Time of Insertion: 08:32 Data : 05/26/21 04:53 05/26/21 04:53 Other Labs: Radiology Impressions Chest CTA 05/20/21 01:17 IMPRESSION: 1. Geographic ground-glass opacities with some crazy paving and consolidation consistent with [id number] bilateral COVID-19 pneumonia versus other pneumonia. 2. Stable CABG procedure. 3. No pulmonary embolus or aortic dissection. Chest X-Ray 05/24/21 07:50 IMPRESSION: Stable abnormal chest. Laboratory Results WBC 9.1 10^3/uL (4.0-10.0) 05/26/21 04:53 RBC 3.54 10^6/uL (4.1-5.3) L 05/26/21 04:53 Hgb 8.3 g/dL (11.5-15.3) L 05/26/21 04:53 Hct 27.8 % (37.0-47.0) L 05/26/21 04:53 MCV 78.5 fl (81-99) L 05/26/21 04:53 MCH 23.4 pg (28.0-34.0) L 05/26/21 04:53 MCHC 29.9 g/dL (30.0-36.0) L 05/26/21 04:53 RDW 19.0 % (12.1-15.1) H 05/26/21 04:53 Plt Count 333 10^3/cmm (130-400) 05/26/21 04:53 MPV 11.5 fL (7.4-10.4) H 05/26/21 04:53 Neut % (Auto) 87.6 % 05/26/21 04:53 Lymph % (Auto) 8.7 % 05/26/21 04:53 [place] % (Auto) 2.8 % 05/26/21 04:53 Eos % (Auto) 0.0 % 05/26/21 04:53 Baso % (Auto) 0.1 % 05/26/21 04:53 Neut # (Auto) 7.93 10^3/uL (1.8-7.7) H 05/26/21 04:53 Lymph # (Auto) 0.8 10^3/uL (0.8-4.8) 05/26/21 04:53 [place] # (Auto) 0.3 10^3/uL (0.2-0.9) 05/26/21 04:53 Eos # (Auto) 0.0 10^3/uL (0.0-0.8) 05/26/21 04:53 Baso # (Auto) 0.0 10^3/uL (0.0-0.1) 05/26/21 04:53 Nucleated RBC % (auto) 0 % 05/26/21 04:53 Nucleated RBCs # 0.0 /100WBC 05/26/21 04:53 Poikilocytosis 2+ H 05/25/21 04:25 Anisocytosis 1+ H 05/25/21 04:25 Ovalocytes 2+ H 05/25/21 04:25 Shantel Cells 1+ H 05/25/21 04:25 D-Dimer 1.36 ug/mIFEU (0-0.59) H 05/24/21 03:27 Specimen Type Arterial 05/24/21 08:50 Sample Site Radial, right 05/24/21 08:50 ABG pH 7.51 (7.35-7.45) H 05/24/21 08:50 ABG pCO2 31.7 mmHg (35-45) L 05/24/21 08:50 ABG pO2 54.8 mmHg (80.0-100.0) L 05/24/21 08:50 ABG HCO3 25.0 mmol/L (22-26) 05/24/21 08:50 ABG O2 Saturation 87.0 05/24/21 08:50 ABG Base Excess 2.1 mmol/L (-2.0-2.0) H 05/24/21 08:50 Carroll Test Pos 05/24/21 08:50 A-a O2 Gradient 33.9 mmHg (5-10) H 05/24/21 08:50 Hematocrit 28.1 % (37-47) L 05/24/21 08:50 Hgb O2 Saturation 85.9 % (95-100) L 05/24/21 08:50 Carboxyhemoglobin 0.2 %THgb (0.4-20.1) L 05/24/21 08:50 Methemoglobin 1.1 % (0.4-1.5) 05/24/21 08:50 Total Hemoglobin 9.2 g/dL (12-16) L 05/24/21 08:50 Sodium 136.0 mmol/L (131-143) 05/24/21 08:50 Potassium 3.3 mmol/L (3.5-5.0) L 05/24/21 08:50 Glucose 279.0 mg/dL (70-115) H 05/24/21 08:50 Ionized Calcium 1.2 mmol/L (1.1-1.4) 05/24/21 08:50 O2 Delivery Device Bipap 05/24/21 08:50 O2 Liters/Min 15.0 % 05/23/21 03:29 FiO2 50.0 % 05/24/21 08:50 Design Engineer [employer] ID Bd 05/24/21 08:50 Sodium 135 mmol/L (136-145) L 05/26/21 04:53 Potassium 3.5 mmol/L (3.5-5.1) 05/26/21 04:53 Chloride 102 mmol/L (98-107) 05/26/21 04:53 Carbon Dioxide 23 mmol/L (22-29) 05/26/21 04:53 Anion Gap 13.5 (5-19) 05/26/21 04:53 BUN 15 mg/dL (6-20) 05/26/21 04:53 Creatinine 0.4 mg/dL (0.5-0.9) L 05/26/21 04:53 GFR Calculation 163.4 mL/min (90-130) H 05/26/21 04:53 Glucose 168 mg/dL (65-115) H 05/26/21 04:53 POC Glucose 392 mg/dL (70-110) H 05/26/21 12:15 Estimat Average Glucose 148 05/20/21 00:14 Hemoglobin A1c 6.8 % (4.0-6.0) H 05/20/21 00:14 Calculated Osmolality 285 mOsm/kg (285-295) 05/26/21 04:53 Lactic Acid 2.2 mmol/L (0.5-2.2) 05/20/21 00:14 Lactic Acid Cancelled 05/20/21 00:14 Lactic Acid (Sepsis) < 0.2 mmol/L (0.5-2.2) L 05/20/21 10:17 Calcium 8.1 mg/dL (8.5-10.5) L 05/26/21 04:53 Phosphorus 2.6 mg/dL (2.5-4.5) 05/22/21 05:00 Magnesium 2.0 mg/dL (1.7-2.3) 05/26/21 04:53 Iron 11 ug/dL (37-145) L 05/20/21 00:14 TIBC 278 mcg/dl 05/20/21 00:14 % Saturation 3.9 % (20-50) L 05/20/21 00:14 Unsat Iron Binding 267 ug/dL (112-347) 05/20/21 00:14 Ferritin 148 ng/mL (15-150) 05/20/21 00:14 Total Bilirubin 0.8 mg/dL (0.15-1.2) 05/24/21 03:27 AST 37 U/L (0-32) H 05/24/21 03:27 ALT 19 U/L (0-33) 05/24/21 03:27 Alkaline Phosphatase 116 IU/L (35-105) H 05/24/21 03:27 Troponin T Gen 5 ng/L 22 ng/L (0-10) H 05/20/21 22:27 Troponin T Baseline 41 ng/L (0-10) H 05/20/21 00:14 Troponin T 120 Minute 24.07 ng/L (0-10) H 05/20/21 06:56 Delta Troponin T -16.93 ABS# (0-10) L 05/20/21 06:56 Troponin T Hi Sens 6Hr 20.50 ng/L (0-10) H 05/20/21 10:17 Troponin T Hi Sens 6Hr Delta -20.5 ng/L (0-12) L 05/20/21 10:17 C-Reactive Protein 17.4 mg/L (0.0-4.9) H 05/22/21 05:00 NT-Pro-B Natriuret Pep 2043 pg/mL (0-125) H 05/23/21 02:55 Total Protein 6.4 g/dL (6.6-8.7) L 05/24/21 03:27 Albumin 2.6 g/dL (3.5-5.2) L 05/24/21 03:27 Globulin 3.8 g/dL (1.3-4.6) 05/24/21 03:27 Procalcitonin 0.11 ng/mL (0-0.5) 05/22/21 05:00 TSH 1.48 uIU/mL (0.27-4.20) 05/20/21 00:14 Urine Color Yellow (Yellow) 05/20/21 04:17 Urine Appearance Clear (CLEAR) 05/20/21 04:17 Urine pH 5 (5-7) 05/20/21 04:17 Ur Specific [place] 1.005 (1.005-1.030) 05/20/21 04:17 Urine Protein Neg (Negative) 05/20/21 04:17 Urine Glucose (UA) Norm (Normal) 05/20/21 04:17 Urine Ketones Negative (Negative) 05/20/21 04:17 Urine Blood Neg (Negative) 05/20/21 04:17 Urine Nitrate Negative (Negative) 05/20/21 04:17 Urine Bilirubin Neg (Negative) 05/20/21 04:17 Urine Urobilinogen Norm mg/dL (Negative) 05/20/21 04:17 Ur Leukocyte Esterase Negative (Negative) 05/20/21 04:17 Vancomycin Trough 12.6 ug/mL (10-15) 05/25/21 17:11 A&P Assessment and plan (1) Multifocal pneumonia: Status: Acute (2) Hypotension: Status: Acute (3) Acute on chronic respiratory failure with hypoxia: Status: Acute (4) Acute respiratory distress syndrome (ARDS) due to 2019 novel coronavirus: Status: Acute (5) CAD (coronary artery disease): Status: Acute (6) Diabetes: Status: Acute (7) Hx of CABG: Status: Acute (8) Fluid overload: Status: Acute (9) Sepsis: Status: Acute Plan #Acute hypoxic respiratory failure secondary to ARDS due to COVID-19 pneumonia and fluid overload #Septic shock-secondary to urosepsis-shock resolved #Urosepsis secondary to E. coli/Klebsiella #History of CAD s/p CABG #[id number] underlying COPD #Diabetes -COVID-19 + 05/13/2021-completed remdesivir and dexamethasone -Gradual improving requirements since admission currently on 35 L 55% high flow nasal cannula today morning; -Patient out of bed to chair appears comfortable but still anxious-currently on Xanax scheduled doses -Diuresing well with Lasix 40 twice daily doses however consuming too much p.o. fluids-fluid restriction< 1.5 L a day -underlying CAD s/p CABG-responded well to Lasix - -BNP > 2000, echocardiogram showed normal ejection fraction 55 to 60% with grade 1 diastolic dysfunction, mild MR, moderate AR, mild TR, moderate pulmonary hypertension -With previous smoking history-cannot rule out underlying COPD-DuoNeb 4 times daily and Pulmicort nebulizations -CTA 05/20/2019-negative for PE -Urine cultures positive for pansensitive Klebsiella/E. coli-covered with Rocephin and azithromycin for admission which were broadened to vancomycin and imipenem for broader coverage-discontinue after 7 days of treatment -Urine Legionella, urine bacterial vcifawld-[id number] will send MRSA nares if negative will DC vancomycin -Sugars moderately controlled on Lantus 10, still requiring 28 units of scale coverage; increased Lantus to 20 units -Monitor renal function/electrolytes/input output and try to keep net negative fluid balance -DVT prophylaxis Lovenox -Full code -Prognosis guarded -Family updated Recommendations conveyed to hospitalist, RN, RT taking care of the patient Attestations Medical Necessity Statement*: Acute hypoxic respiratory failure nasal cannula and fluid overload secondary to CHF and septic shock due to UTI-shock resolved and patient is improving-can be transferred to floor in 24 to 48 hours Time Spent in Patient Care: Greater than 35 minutes (>than 50% of time spent in counselling and/or direct pt care on unit). Critical Care Time: The high probability of a clinically significant, sudden or life threatening deterioration of the patient's [cardiac, pulmonary, aty, endocrine]system(s) required my full and direct attention, intervention and personal management. The critical care time is as shown. This time is in addition to time spent performing any reported procedures but includes the following: [x] Data and vital sign review and interpretation [x] Patient assessment, examination and intervention [x] Documentation [x] Medication orders and management Critical Care Time (min): 45 Coding Level of Care Code Established Pt Acute Manager Clinical [facility] Fwd Patient Type Established History Comprehensive Exam Comprehensive Medical Decision Making High Complexity Diagnoses Multifocal pneumonia J18.9 Hypotension I95.9 Acute on chronic respiratory failure with hypoxia J96.21 Acute respiratory distress syndrome (ARDS) due to 2019 novel coronavirus U07.1; J80 CAD (coronary artery disease) I25.10 Diabetes E11.9 Hx of CABG Z95.1 Fluid overload E87.70 Sepsis A41.9 Time Spent (min) 45
[2021-05-26 12:36] LABS: Glucose Point of Care 392 mg/dL (70-110)
[2021-05-26] MEDS: enoxaparin 40 mg/0.4 mL Syringe SUBCUT (12:52)
[2021-05-26 18:22] LABS: Glucose Point of Care 283 mg/dL (70-110)
--- NOTE | 2021-05-26 19:53 | PC.NURSE ---
Shift Note Pt up to chair at 0900 this am. Medications for pain changed, Tramadol and Flexiril started. Pt has complained of a headache and anxiety.throughout shift. When staff not in room Resp, even and unlabored and pt resting with eyes closed, facial features relaxed. She has visited with family on her iPad. Her daughter Triny given an update on her mother via the iPad. Nemo updated via telephone and in person today. She came in to visit, and groomed pt's hair. Oxygen needs significantly reduced today, pt now on high flow NC at 6 liters. Fluid restrictions started today, pt compliant. 650 oral intake with 1150 urine output this shift. Frequent safety and comfort rounds continue. Orders and/or nursing care completed as indicated. Patient monitored for response to intervention and treatment(s). Education provided includes high flow NC, Tramadol, Flexeril, deep breathing. Patient and/or security representative verbalized understanding of care plan, pt needing to participate in care, i.e. use IS and flutter valve, medications and progress. Will continue to monitor.
[2021-05-26] MEDS: atorvastatin 40 mg Tablet PO (21:11)
[2021-05-26] MEDS: insulin glargine 100 units/1 mL 20 UNIT SUBCUT (21:19)
[2021-05-26 21:22] LABS: Glucose Point of Care 346 mg/dL (70-110)
[2021-05-27] VITALS (18 sets, daily range): BP systolic 93–130; BP diastolic 53–79; PULSE 68–89; RESP 16–35; TEMP 36.7–36.9; O2SAT 90–97
[2021-05-27] MEDS: TRAMadol 50 mg Tablet PO (00:23)
--- NOTE | 2021-05-27 00:42 | PC.NURSE ---
To Bed Patient able to transfer from chair to bed with one RN assist. Patient stable on her feet, oxygen saturation decreased slightly to 88%. Once settled, oxygen saturation recovered to low-mid 90s. Overall, patient tolerated movement well.
[2021-05-27] MEDS: HYDROcodone-acetaminophen 5-325 mg Tablet 1 TAB PO (02:01)
[2021-05-27] MEDS: pantoprazole 40 mg SDV IVP ×2 (04:09→16:23)
--- NOTE | 2021-05-27 04:25 | PC.NURSE ---
Report called to receiving nurse on [facility]. Patient belongings gathered and with patient upon transfer. Patient moved upstairs with two RNs via bed, all belongings placed bedside. All vitals stable prior to move.
[2021-05-27] MEDS: dexamethasone 10 mg/mL INJ 6 MG IVP (05:08)
[2021-05-27] MEDS: LORazepam 2 mg/mL INJ 1 mL 0.5 MG IVP (05:09)
[2021-05-27] MEDS: vancomycin 1,250 MG/250 ML PIGGYBACK 250 MG IV (05:09)
[2021-05-27 06:31] LABS: Glucose Point of Care 199 mg/dL (70-110)
[2021-05-27 06:55] LABS: Blood Urea Nitrogen 13 mg/dL (6-20); Calcium 9.1 mg/dL (8.5-10.5); Carbon Dioxide 21 mmol/L (22-29); Chloride 104 mmol/L (98-107); Creatinine Clr Calc Pharmacy 218.6676; Glomerular Filtration Rate 227.7 mL/min (90-130); Glucose 139 mg/dL (65-115); Magnesium 1.6 mg/dL (1.7-2.3); Osmolality Calculated 282 mOsm/kg (285-295); Sodium 135 mmol/L (136-145)
[2021-05-27 07:22] LABS: Anion Gap 14.9 (5-19); Potassium 4.9 mmol/L (3.5-5.1)
[2021-05-27] MEDS: ipratropium-albuterol 3 mL Neb INHALATION ×3 (07:57→15:18)
[2021-05-27] MEDS: budesonide 0.5 mg/2 mL Neb INHALATION (07:57)
[2021-05-27] MEDS: insulin lispro 100 unit/1 mL SUBCUT ×3 (09:08→18:31)
[2021-05-27] MEDS: cholecalciferol (vitamin D3) 1,000 unit Tablet 1000 UNIT PO (09:08)
[2021-05-27] MEDS: citalopram 20 mg Tablet PO (09:08)
[2021-05-27] MEDS: ALPRAZolam 0.5 mg Tablet PO ×2 (09:08→21:05)
[2021-05-27] MEDS: levothyroxine 137 mcg Tablet PO (09:08)
[2021-05-27] MEDS: clopidogrel 75 mg Tablet PO (09:08)
[2021-05-27] MEDS: magnesium sulfate premix 2 GM/50 ML PIGGYBACK IV (09:09)
--- NOTE | 2021-05-27 10:37 | PM.PN ---
Subjective Subjective: Interval history: -Patient seen at bedside -Currently saturating greater than 90% on 6 L nasal cannula oxygen -Reported feels like her breathing has still has some discomfort- -Had bowel movement -Other labs and imaging reviewed-magnesium low supplemented stools Medications: Reviewed: Yes Vitals/I&O/Wt Last Vital Signs Temp 98.2 F 05/27/21 08:00 Pulse 75 05/27/21 08:05 Resp 18 05/27/21 08:05 BP 102/69 05/27/21 08:00 Pulse Ox 95 05/27/21 08:05 05/26/21 05/27/21 05/27/21 22:59 06:59 14:59 Intake Total 650 / 1290 590 / 1880 100 / 100 Output Total 2900 / 2900 Balance -2250 / -1610 590 / -1020 100 / 100 Weight last 48 hrs Weight 182 lb Weight 181 lb Physical Exam Narrative: EXAM NARRATIVE: Elderly female, states he is sitting up in bed in mild respiratory distress HEENT: conj clear, EOMI, PERRL, mmm, Neck: supple, no meningismus Heme: no cervical LAP Pulmonary: Normal breath sounds bilateral upper lobes;crackles both bases Cardiovascular: rrr, nl s1s2, no mrg Abdomen: soft, nt, nd, no r/g, bs+ Extremities: pulses +, no edema, no c/c : no CVA tenderness Skin: intact, no rash MSK: no back or neck pain Neurologic: grossly intact Urinary Catheter Management: Musa: Cath Placed During This Visit: yes Reason for Continuing Indwelling Catheter: Acute Urinary Retention or Obstruction Urinary Catheter Date of Insertion: 05/23/21 Urinary Catheter Time of Insertion: 08:32 Data : 05/26/21 04:53 05/27/21 05:59 Other Labs: Radiology Impressions Chest CTA 05/20/21 01:17 IMPRESSION: 1. Geographic ground-glass opacities with some crazy paving and consolidation consistent with [id number]-qgfvftst bilateral COVID-19 pneumonia versus other pneumonia. 2. Stable CABG procedure. 3. No pulmonary embolus or aortic dissection. Chest X-Ray 05/24/21 07:50 IMPRESSION: Stable abnormal chest. Laboratory Results WBC Cancelled 05/27/21 05:59 Corrected WBC Cancelled 05/27/21 05:59 RBC Cancelled 05/27/21 05:59 Hgb Cancelled 05/27/21 05:59 Hct Cancelled 05/27/21 05:59 MCV Cancelled 05/27/21 05:59 MCH Cancelled 05/27/21 05:59 MCHC Cancelled 05/27/21 05:59 RDW Cancelled 05/27/21 05:59 Plt Count Cancelled 05/27/21 05:59 MPV Cancelled 05/27/21 05:59 Gran % Cancelled 05/27/21 05:59 Neut % (Auto) Cancelled 05/27/21 05:59 Lymph % (Auto) Cancelled 05/27/21 05:59 [place] % (Auto) Cancelled 05/27/21 05:59 Eos % (Auto) Cancelled 05/27/21 05:59 Baso % (Auto) Cancelled 05/27/21 05:59 Neut # (Auto) Cancelled 05/27/21 05:59 Lymph # (Auto) Cancelled 05/27/21 05:59 [place] # (Auto) Cancelled 05/27/21 05:59 Eos # (Auto) Cancelled 05/27/21 05:59 Baso # (Auto) Cancelled 05/27/21 05:59 Absolute Gran (auto) Cancelled 05/27/21 05:59 Nucleated RBC % (auto) Cancelled 05/27/21 05:59 Nucleated RBCs # Cancelled 05/27/21 05:59 Poikilocytosis 2+ H 05/25/21 04:25 Anisocytosis 1+ H 05/25/21 04:25 Ovalocytes 2+ H 05/25/21 04:25 Shantel Cells 1+ H 05/25/21 04:25 D-Dimer 1.36 ug/mIFEU (0-0.59) H 05/24/21 03:27 Specimen Type Arterial 05/24/21 08:50 Sample Site Radial, right 05/24/21 08:50 ABG pH 7.51 (7.35-7.45) H 05/24/21 08:50 ABG pCO2 31.7 mmHg (35-45) L 05/24/21 08:50 ABG pO2 54.8 mmHg (80.0-100.0) L 05/24/21 08:50 ABG HCO3 25.0 mmol/L (22-26) 05/24/21 08:50 ABG O2 Saturation 87.0 05/24/21 08:50 ABG Base Excess 2.1 mmol/L (-2.0-2.0) H 05/24/21 08:50 [place] Test Pos 05/24/21 08:50 A-a O2 Gradient 33.9 mmHg (5-10) H 05/24/21 08:50 Hematocrit 28.1 % (37-47) L 05/24/21 08:50 Hgb O2 Saturation 85.9 % (95-100) L 05/24/21 08:50 Carboxyhemoglobin 0.2 %THgb (0.4-20.1) L 05/24/21 08:50 Methemoglobin 1.1 % (0.4-1.5) 05/24/21 08:50 Total Hemoglobin 9.2 g/dL (12-16) L 05/24/21 08:50 Sodium 136.0 mmol/L (131-143) 05/24/21 08:50 Potassium 3.3 mmol/L (3.5-5.0) L 05/24/21 08:50 Glucose 279.0 mg/dL (70-115) H 05/24/21 08:50 Ionized Calcium 1.2 mmol/L (1.1-1.4) 05/24/21 08:50 O2 Delivery Device Bipap 05/24/21 08:50 O2 Liters/Min 15.0 % 05/23/21 03:29 FiO2 50.0 % 05/24/21 08:50 Territory Manager General [employer] ID Bd 05/24/21 08:50 Sodium 135 mmol/L (136-145) L 05/27/21 05:59 Potassium 4.9 mmol/L (3.5-5.1) 05/27/21 05:59 Chloride 104 mmol/L (98-107) 05/27/21 05:59 Carbon Dioxide 21 mmol/L (22-29) L 05/27/21 05:59 Anion Gap 14.9 (5-19) 05/27/21 05:59 BUN 13 mg/dL (6-20) 05/27/21 05:59 Creatinine 0.3 mg/dL (0.5-0.9) L 05/27/21 05:59 GFR Calculation 227.7 mL/min (90-130) H 05/27/21 05:59 Glucose 139 mg/dL (65-115) H 05/27/21 05:59 POC Glucose 387 mg/dL (70-110) H 05/27/21 11:11 Estimat Average Glucose 148 05/20/21 00:14 Hemoglobin A1c 6.8 % (4.0-6.0) H 05/20/21 00:14 Calculated Osmolality 282 mOsm/kg (285-295) L 05/27/21 05:59 Lactic Acid 2.2 mmol/L (0.5-2.2) 05/20/21 00:14 Lactic Acid Cancelled 05/20/21 00:14 Lactic Acid (Sepsis) < 0.2 mmol/L (0.5-2.2) L 05/20/21 10:17 Calcium 9.1 mg/dL (8.5-10.5) 05/27/21 05:59 Phosphorus 2.6 mg/dL (2.5-4.5) 05/22/21 05:00 Magnesium 1.6 mg/dL (1.7-2.3) L 05/27/21 05:59 Magnesium Cancelled 05/27/21 05:59 Iron 11 ug/dL (37-145) L 05/20/21 00:14 TIBC 278 mcg/dl 05/20/21 00:14 % Saturation 3.9 % (20-50) L 05/20/21 00:14 Unsat Iron Binding 267 ug/dL (112-347) 05/20/21 00:14 Ferritin 148 ng/mL (15-150) 05/20/21 00:14 Total Bilirubin 0.8 mg/dL (0.15-1.2) 05/24/21 03:27 AST 37 U/L (0-32) H 05/24/21 03:27 ALT 19 U/L (0-33) 05/24/21 03:27 Alkaline Phosphatase 116 IU/L (35-105) H 05/24/21 03:27 Troponin T Gen 5 ng/L 22 ng/L (0-10) H 05/20/21 22:27 Troponin T Baseline 41 ng/L (0-10) H 05/20/21 00:14 Troponin T 120 Minute 24.07 ng/L (0-10) H 05/20/21 06:56 Delta Troponin T -16.93 ABS# (0-10) L 05/20/21 06:56 Troponin T Hi Sens 6Hr 20.50 ng/L (0-10) H 05/20/21 10:17 Troponin T Hi Sens 6Hr Delta -20.5 ng/L (0-12) L 05/20/21 10:17 C-Reactive Protein 17.4 mg/L (0.0-4.9) H 05/22/21 05:00 NT-Pro-B Natriuret Pep 2043 pg/mL (0-125) H 05/23/21 02:55 Total Protein 6.4 g/dL (6.6-8.7) L 05/24/21 03:27 Albumin 2.6 g/dL (3.5-5.2) L 05/24/21 03:27 Globulin 3.8 g/dL (1.3-4.6) 05/24/21 03:27 Procalcitonin 0.11 ng/mL (0-0.5) 05/22/21 05:00 TSH 1.48 uIU/mL (0.27-4.20) 05/20/21 00:14 Urine Color Yellow (Yellow) 05/20/21 04:17 Urine Appearance Clear (CLEAR) 05/20/21 04:17 Urine pH 5 (5-7) 05/20/21 04:17 Ur Specific [place] 1.005 (1.005-1.030) 05/20/21 04:17 Urine Protein Neg (Negative) 05/20/21 04:17 Urine Glucose (UA) Norm (Normal) 05/20/21 04:17 Urine Ketones Negative (Negative) 05/20/21 04:17 Urine Blood Neg (Negative) 05/20/21 04:17 Urine Nitrate Negative (Negative) 05/20/21 04:17 Urine Bilirubin Neg (Negative) 05/20/21 04:17 Urine Urobilinogen Norm mg/dL (Negative) 05/20/21 04:17 Ur Leukocyte Esterase Negative (Negative) 05/20/21 04:17 Vancomycin Trough 12.6 ug/mL (10-15) 05/25/21 17:11 Micro: Microbiology 05/25/21 16:20 MRSA Culture - Final Nose A&P Assessment and plan (1) Multifocal pneumonia: Status: Acute (2) Hypotension: Status: Acute (3) Acute on chronic respiratory failure with hypoxia: Status: Acute (4) Acute respiratory distress syndrome (ARDS) due to 2019 novel coronavirus: Status: Acute (5) CAD (coronary artery disease): Status: Acute (6) Diabetes: Status: Acute (7) Hx of CABG: Status: Acute (8) Fluid overload: Status: Acute (9) Sepsis: Status: Acute Plan #Acute hypoxic respiratory failure secondary to ARDS due to COVID-19 pneumonia and fluid overload #Septic shock-secondary to urosepsis-shock resolved #Urosepsis secondary to E. coli/Klebsiella #History of CAD s/p CABG #[id number] underlying COPD #Diabetes -COVID-19 + 05/13/2021-completed remdesivir and dexamethasone -Gradual improving requirements since admission currently on 6 L nasal cannula today morning; -Currently on Xanax scheduled doses-appears less anxious -underlying CAD s/p CABG-responded well to Lasix -good urine output and Lasix right now -BNP > 2000, echocardiogram showed normal ejection fraction 55 to 60% with grade 1 diastolic dysfunction, mild MR, moderate AR, mild TR, moderate pulmonary hypertension -With previous smoking history-cannot rule out underlying COPD-DuoNeb 4 times daily and Pulmicort nebulizations -CTA 05/20/2019-negative for PE -Urine cultures positive for pansensitive Klebsiella/E. coli-covered with Rocephin and azithromycin for admission which were broadened to vancomycin and imipenem for broader coverage-discontinue after 7 days of treatment;MRSA nares negative-DC vancomycin -Urine Legionella, urine bacterial antigens-negative- -Sugars moderately controlled-Lantus 20 units-scale coverage -Monitor renal function/electrolytes/input output and try to keep net negative fluid balance -DVT prophylaxis Lovenox -Full code -Prognosis guarded -Family updated Recommendations conveyed to hospitalist, RN, RT taking care of the patient Attestations Medical Necessity Statement*: Acute hypoxic respiratory failure nasal cannula and fluid overload secondary to CHF and septic shock due to UTI-shock resolved and patient is improving-can be discharged to his home/rehab in 24 to 48 hours-defer to hospitalist Time Spent in Patient Care: Greater than 35 minutes (>than 50% of time spent in counselling and/or direct pt care on unit). Critical Care Time: The high probability of a clinically significant, sudden or life threatening deterioration of the patient's [cardiac, pulmonary, tay, endocrine]system(s) required my full and direct attention, intervention and personal management. The critical care time is as shown. This time is in addition to time spent performing any reported procedures but includes the following: [x] Data and vital sign review and interpretation [x] Patient assessment, examination and intervention [x] Documentation [x] Medication orders and management Critical Care Time (min): 45 Coding Level of Care Code Established Pt Acute Boiler T[employer]lower for [facility] Fwd Patient Type Established History Comprehensive Exam Comprehensive Medical Decision Making High Complexity Diagnoses Multifocal pneumonia J18.9 Hypotension I95.9 Acute on chronic respiratory failure with hypoxia J96.21 Acute respiratory distress syndrome (ARDS) due to 2019 novel coronavirus U07.1; J80 CAD (coronary artery disease) I25.10 Diabetes E11.9 Hx of CABG Z95.1 Fluid overload E87.70 Sepsis A41.9 Time Spent (min) 45
[2021-05-27 11:15] LABS: Glucose Point of Care 387 mg/dL (70-110)
--- NOTE | 2021-05-27 12:43 | PC.SOCIAL ---
IMM Update Updated pt's daughter Nemo on IMM. No questions voiced. Provided pt a copy. Initialed, dated, & timed copy in chart.
--- NOTE | 2021-05-27 13:09 | P.PN_ITS ---
Subjective Subjective: Interval history: This morning patient is saturating 89 to 92% on 5 L nasal cannula She was eating breakfast when entered the room She had a bowel movement, able to void without any discomfort Magnesium repleted this morning Did speak with Dr. Hopson as well Vitals/I&O/Wt Last Vital Signs Temp 98.1 F 05/27/21 11:14 Pulse 77 05/27/21 11:40 Resp 18 05/27/21 11:40 BP 102/68 05/27/21 11:14 Pulse Ox 92 05/27/21 11:39 05/26/21 05/27/21 05/27/21 22:59 06:59 14:59 Intake Total 650 / 1290 590 / 1880 390 / 390 Output Total 2900 / 2900 Balance -2250 / -1610 590 / -1020 390 / 390 Weight last 48 hrs Weight 82.554 kg Weight 82.1 kg Physical Exam Narrative: EXAM NARRATIVE: Patient is eating breakfast this morning on 5 L nasal cannula No active shortness of breath Endorsing feeling fatigued and lethargic nonfocal neuro exam EOMI, PERRLA Abdomen distended with obesity No signs of edema EOMI, PERRLA Musa catheter draining dilute urine Urinary Catheter Management: Musa: Cath Placed During This Visit: yes Reason for Continuing Indwelling Catheter: Acute Urinary Retention or Obstruction Urinary Catheter Date of Insertion: 05/23/21 Urinary Catheter Time of Insertion: 08:32 Data : 05/26/21 04:53 05/27/21 05:59 Micro: Microbiology 05/25/21 16:20 MRSA Culture - Final Nose A&P Assessment and plan (1) Fluid overload: Status: Acute (2) Hx of CABG: Status: Acute (3) Acute respiratory distress syndrome (ARDS) due to 2019 novel coronavirus: Status: Acute (4) Acute on chronic respiratory failure with hypoxia: Status: Acute (5) Anemia: Status: Acute (6) Multifocal pneumonia: Status: Acute (7) Sepsis: Status: Acute (8) Hypothyroidism: Status: Acute (9) Pneumonia due to COVID-19 virus: Status: Acute Plan Sepsis and hypotension: Resolved Iron deficiency anemia: She was given iron transfusion for her anemia: Hemoglobin stable: COVID-19 related hypoxia Currently on 5 L nasal cannula Baricitinib or Actemra for concern related to bacterial superimposed infection She has been kept on broad-spectrum antibiotics Finished remdesivir Continue IV steroids Pulmonary toilet incentive spirometry and Acapella Encourage patient to walk around, will DC Musa catheter Preserved ejection fraction heart failure exacerbation she was kept on aggre ssive diuretic regimen with fluid restriction, DVT prophylaxis Lovenox Full code Rehab in [place] possibly on Saturday DC vancomycin MRSA nares negative, vancomycin given 05/20, Primaxin 05/23 to finish 7 days on IV antibiotics Urine culture showing E. coli and Klebsiella Attestations Medical Necessity Statement*: Continue medical management, rehab on Saturday Time Spent in Patient Care: 20 minutes Coding Level of Care Code Acute Speedometer Mechanic for Chg Fwd Diagnoses Fluid overload E87.70 Hx of CABG Z95.1 Acute respiratory distress syndrome (ARDS) due to 2019 novel coronavirus U07.1; J80 Acute on chronic respiratory failure with hypoxia J96.21 Anemia D64.9 Multifocal pneumonia J18.9 Sepsis A41.9 Hypothyroidism E03.9 Pneumonia due to COVID-19 virus U07.1; J12.82
[2021-05-27] MEDS: enoxaparin 40 mg/0.4 mL Syringe SUBCUT (13:45)
[2021-05-27 16:58] LABS: Glucose Point of Care 330 mg/dL (70-110)
[2021-05-27] MEDS: docusate sodium 100 mg Capsule PO (18:31)
[2021-05-27 19:43] LABS: Basophils % 0.1 %; Hematocrit 30.5 % (37.0-47.0); Hemoglobin 9.1 g/dL (11.5-15.3); Lymphocytes # 0.6 10^3/uL (0.8-4.8); Lymphocytes % 5.5 %; Mean Corpuscular HGB Conc 29.8 g/dL (30.0-36.0); Mean Corpuscular Hemoglobin 23.8 pg (28.0-34.0); Mean Corpuscular Volume 79.6 fl (81-99); Mean Platelet Volume 11.9 fL (7.4-10.4); Monocytes # 0.4 10^3/uL (0.2-0.9); Monocytes % 3.2 %; Neutrophils # 9.91 10^3/uL (1.8-7.7); Neutrophils % 90.3 %; Nucleated Red Blood Cells % 0.2 %; Platelet Count 344 10^3/cmm (130-400); Red Blood Count 3.83 10^6/uL (4.1-5.3); Red Cell Distribution Width 19.9 % (12.1-15.1)
[2021-05-27 20:53] LABS: Glucose Point of Care 221 mg/dL (70-110)
[2021-05-27] MEDS: atorvastatin 40 mg Tablet PO (21:05)
[2021-05-27] MEDS: insulin glargine 100 units/1 mL 20 UNIT SUBCUT (21:06)
--- NOTE | 2021-05-27 22:29 | PC.NURSE ---
Patient declining to allow quach removal at this time stating she is very tired tonight and may let someone remove it tomorrow.
[2021-05-28] VITALS (15 sets, daily range): BP systolic 98–132; BP diastolic 60–76; PULSE 69–94; RESP 17–20; TEMP 36.6–37; O2SAT 91–97
[2021-05-28] MEDS: HYDROcodone-acetaminophen 5-325 mg Tablet 1 TAB PO ×2 (00:48→22:45)
[2021-05-28 03:06] LABS: ABG PCO2 37.2 mmHg (35-45); ABG PH Result 7.52 (7.35-7.45); Arterial Blood Gas Hematocrit 27.4 % (37-47); Base Excess ABG 7.1 mmol/L (-2.0-2.0); Blood Gas Sample Site Radial, left; Blood Gas Sample Type Arterial; HCO3 ABG 30.5 mmol/L (22-26); Oxygen Device NC; PO2 ABG 67.1 mmHg (80.0-100.0)
[2021-05-28] MEDS: pantoprazole 40 mg SDV IVP (03:58)
[2021-05-28] MEDS: dexamethasone 10 mg/mL INJ 6 MG IVP (05:53)
[2021-05-28 06:30] LABS: Glucose Point of Care 183 mg/dL (70-110)
[2021-05-28 06:56] LABS: Anion Gap 15.2 (5-19); Blood Urea Nitrogen 13 mg/dL (6-20); Calcium 8.9 mg/dL (8.5-10.5); Carbon Dioxide 27 mmol/L (22-29); Chloride 100 mmol/L (98-107); Glomerular Filtration Rate 163.4 mL/min (90-130); Glucose 185 mg/dL (65-115); Magnesium 1.9 mg/dL (1.7-2.3); Osmolality Calculated 291 mOsm/kg (285-295); Phosphorus 4.4 mg/dL (2.5-4.5); Potassium 4.2 mmol/L (3.5-5.1); Sodium 138 mmol/L (136-145)
[2021-05-28] MEDS: ipratropium-albuterol 3 mL Neb INHALATION ×4 (08:13→20:03)
[2021-05-28] MEDS: budesonide 0.5 mg/2 mL Neb INHALATION ×2 (08:14→20:03)
[2021-05-28] MEDS: insulin lispro 100 unit/1 mL SUBCUT ×2 (08:38→17:29)
[2021-05-28] MEDS: docusate sodium 100 mg Capsule PO (08:39)
[2021-05-28] MEDS: clopidogrel 75 mg Tablet PO (08:39)
[2021-05-28] MEDS: cholecalciferol (vitamin D3) 1,000 unit Tablet 1000 UNIT PO (08:39)
[2021-05-28] MEDS: ALPRAZolam 0.5 mg Tablet PO ×3 (08:39→22:25)
[2021-05-28] MEDS: citalopram 20 mg Tablet PO (08:39)
[2021-05-28] MEDS: levothyroxine 137 mcg Tablet PO (08:41)
[2021-05-28 11:09] LABS: Glucose Point of Care 391 mg/dL (70-110)
--- NOTE | 2021-05-28 12:14 | P.PN_ITS ---
Subjective Subjective: Interval history: This morning patient is on 5 L, she does not meet criteria to be transferred to LTAC, will do another PT evaluation today to see whether she can be discharged home with home health versus penitentiary If penitentiary she is requesting a penitentiary in [place] I have updated high risk case manager Patient is endorsing passing gas, able to tolerate her diet no active shortness of breath, do voiding trial today Still fatigued and lethargic She had 1 bowel movement Vitals/I&O/Wt Last Vital Signs Temp 98.1 F 05/28/21 08:00 Pulse 90 05/28/21 11:26 Resp 18 05/28/21 11:26 BP 132/76 05/28/21 08:00 Pulse Ox 94 05/28/21 11:26 05/27/21 05/28/21 05/28/21 22:59 06:59 14:59 Intake Total 1370 / 2240 400 / 2640 1300 / 1300 Output Total 1600 / 2900 Balance 1370 / 940 -1200 / -260 1300 / 1300 Weight last 48 hrs Weight 80.422 kg Weight 82.554 kg Physical Exam Narrative: EXAM NARRATIVE: Patient was eating breakfast this morning Saturating well on 5 L nasal cannula S1, S2 Congestive heart failure/volume overloaded signs Abdomen soft distended, nontender Nonfocal neuro exam No audible stridor or wheezing Urinary Catheter Management: Musa: Cath Placed During This Visit: yes Reason for Continuing Indwelling Catheter: Acute Urinary Retention or Obstruction Urinary Catheter Date of Insertion: 05/23/21 Urinary Catheter Time of Insertion: 08:32 Data : 05/27/21 19:20 05/28/21 06:00 A&P Assessment and plan (1) Fluid overload: Status: Acute (2) Hx of CABG: Status: Acute (3) Acute respiratory distress syndrome (ARDS) due to 2019 novel coronavirus: Status: Acute (4) Acute on chronic respiratory failure with hypoxia: Status: Acute (5) Anemia: Status: Acute (6) Sepsis: Status: Acute (7) Multifocal pneumonia: Status: Acute (8) Diabetes: Status: Acute Plan Hypoxia related to COVID-19: Currently on 5 L nasal cannula, I would like to see her O2 saturation above 88% on ambulation, ABG reviewed De-escalate antibiotics tomorrow if leukocytosis improves, this morning white count 11,000, she is afebrile, Vancomycin discontinued yesterday, continue IV antibiotics until discharge and then can be switched to p.o. antibiotics Yesterday we were not able to discontinue her Musa catheter, will do voiding trial today Preserved action fraction heart failure exacerbation fluid section and diuretics to be continued for now We will like to keep her negative balance DVT prophylaxis Lovenox Full code PT evaluation today to see whether she would benefit from home health versus penitentiary, manager of international updated Attestations Medical Necessity Statement*: Discharge in next 24 hours Time Spent in Patient Care: 20 minutes Coding Level of Care Code Acute Light Bulb Assembler for Chg Fwd Diagnoses Fluid overload E87.70 Hx of CABG Z95.1 Acute respiratory distress syndrome (ARDS) due to 2019 novel coronavirus U07.1; J80 Acute on chronic respiratory failure with hypoxia J96.21 Anemia D64.9 Sepsis A41.9 Multifocal pneumonia J18.9 Diabetes E11.9
[2021-05-28] MEDS: enoxaparin 40 mg/0.4 mL Syringe SUBCUT (12:47)
[2021-05-28] MEDS: pantoprazole DR 40 mg Tablet PO (16:34)
[2021-05-28] MEDS: acetaminophen 325 mg Tablet 650 MG PO (16:49)
[2021-05-28] MEDS: cyclobenzaprine 10 mg Tablet PO ×2 (16:49→22:44)
[2021-05-28 17:06] LABS: Glucose Point of Care 436 mg/dL (70-110)
[2021-05-28] MEDS: insulin lispro 100 unit/1 mL 10 UNIT SUBCUT (17:29)
[2021-05-28] MEDS: TRAMadol 50 mg Tablet PO (18:47)
[2021-05-28 20:46] LABS: Glucose Point of Care 280 mg/dL (70-110)
[2021-05-28] MEDS: atorvastatin 40 mg Tablet PO (22:25)
[2021-05-28] MEDS: insulin glargine 100 units/1 mL 25 UNIT SUBCUT (22:25)
[2021-05-29] VITALS (11 sets, daily range): BP systolic 102–129; BP diastolic 58–72; PULSE 68–92; RESP 16–17; TEMP 36.4–36.9; O2SAT 86–97
[2021-05-29] MEDS: TRAMadol 50 mg Tablet PO (01:49)
[2021-05-29] MEDS: pantoprazole DR 40 mg Tablet PO ×2 (04:44→15:59)
[2021-05-29] MEDS: dexamethasone 10 mg/mL INJ 6 MG IVP (04:44)
[2021-05-29 06:46] LABS: Basophils % 0.2 %; Eosinophils % 0.4 %; Hematocrit 31.9 % (37.0-47.0); Lymphocytes # 0.9 10^3/uL (0.8-4.8); Lymphocytes % 10.8 %; Mean Corpuscular HGB Conc 28.2 g/dL (30.0-36.0); Mean Corpuscular Hemoglobin 24.4 pg (28.0-34.0); Mean Corpuscular Volume 86.4 fl (81-99); Mean Platelet Volume 11.9 fL (7.4-10.4); Monocytes # 0.5 10^3/uL (0.2-0.9); Monocytes % 6.1 %; Neutrophils % 81.5 %; Nucleated Red Blood Cells % 0.4 %; Platelet Count 273 10^3/cmm (130-400); Red Blood Count 3.69 10^6/uL (4.1-5.3); Red Cell Distribution Width 20.6 % (12.1-15.1); White Blood Count 8.3 10^3/uL (4.0-10.0)
[2021-05-29 06:54] LABS: Glucose Point of Care 264 mg/dL (70-110)
[2021-05-29 07:02] LABS: Blood Urea Nitrogen 13 mg/dL (6-20); Calcium 9.6 mg/dL (8.5-10.5); Carbon Dioxide 23 mmol/L (22-29); Chloride 99 mmol/L (98-107); Glomerular Filtration Rate 163.4 mL/min (90-130); Glucose 233 mg/dL (65-115); Osmolality Calculated 288 mOsm/kg (285-295); Sodium 135 mmol/L (136-145)
[2021-05-29 07:04] LABS: Anion Gap 17.4 (5-19); Potassium 4.4 mmol/L (3.5-5.1)
[2021-05-29] MEDS: ipratropium-albuterol 3 mL Neb INHALATION ×2 (07:22→12:24)
[2021-05-29] MEDS: budesonide 0.5 mg/2 mL Neb INHALATION (07:22)
[2021-05-29] MEDS: insulin lispro 100 unit/1 mL SUBCUT ×2 (08:51→12:25)
[2021-05-29] MEDS: ALPRAZolam 0.5 mg Tablet PO (08:51)
[2021-05-29] MEDS: insulin lispro 100 unit/1 mL 10 UNIT SUBCUT ×2 (08:51→12:24)
[2021-05-29] MEDS: docusate sodium 100 mg Capsule PO (08:51)
[2021-05-29] MEDS: cholecalciferol (vitamin D3) 1,000 unit Tablet 1000 UNIT PO (08:51)
[2021-05-29] MEDS: levothyroxine 137 mcg Tablet PO (08:51)
[2021-05-29] MEDS: citalopram 20 mg Tablet PO (08:52)
[2021-05-29] MEDS: clopidogrel 75 mg Tablet PO (08:52)
[2021-05-29] MEDS: HYDROcodone-acetaminophen 5-325 mg Tablet 1 TAB PO ×2 (10:12→16:04)
[2021-05-29 11:19] LABS: Glucose Point of Care 375 mg/dL (70-110)
[2021-05-29] MEDS: enoxaparin 40 mg/0.4 mL Syringe SUBCUT (12:24)
--- NOTE | 2021-05-29 14:53 | PC.SOCIAL ---
IMM Update pg 2 of IMM updated and reviewed w/ patient. Copy provided and copy in chart updated.
--- NOTE | 2021-05-29 16:18 | PC.OT ---
OT EVALUATION ATTEMPTED; PATIENT REPORTS THAT SHE IS BEING DISCHARGED TODAY. EVAL NOT COMPLETED.
--- NOTE | 2021-05-29 16:23 | P.DS_ITS ---
Discharge Providers Date of Admission: 05/20/21 03:23 Date of Discharge: May 29, 2021 Attending Provider at Admission: Segunod Crawford MD Attending Provider at Discharge: Balbir iDaz DO Diagnoses at Discharge Discharge Diagnosis (1) Fluid overload: Status: Acute (2) Hx of CABG: Status: Acute (3) Acute respiratory distress syndrome (ARDS) due to 2019 novel coronavirus: Status: Acute (4) Acute on chronic respiratory failure with hypoxia: Status: Acute (5) Anemia: Status: Acute (6) Sepsis: Status: Acute (7) Multifocal pneumonia: Status: Acute (8) Diabetes: Status: Acute Reason for Visit Reason for Visit: covid + on 05/13/21, low 02 Hospital Course Hospital Course Lucia Barnes is a 60 year old female with a past medical history of noninsulin- dependent type 2 diabetes mellitus, hypertension, hyperlipidemia, hypothyroidism, CAD status post CABG, chronic anemia, who presents to [facility] due to shortness of breath fatigue, malaise, chest pain, lightheadedness, poor appetite.? Patient tells me that she tested positive for Covid roughly a week ago before her arrival in the ER Required broad-spectrum antibiotic coverage for worsening of hypoxia, she was put on heated high flow 100% FiO2 which was gradually weaned down to nasal cannula 5 L, she was diuresed with IV regimen as well, CTA negative for PE culture of urine positive for pansensitive Klebsiella/E. coli, MRSA nares negative preserved action fraction 60% EF grade 1 diastolic dysfunction. Pt markedly improved on only 3l OXYGEN. PT/family would like pt to return home which is next door to daughter. C and oxygen arrangements made. Pt stable for discharge on oxygen Physical Exam Narrative: EXAM NARRATIVE: Patient in no acute distress at time of exam patient was seen sitting in chair. Heart regular normal S1-S2 without murmurs clicks gallops or rubs Lungs: Slightly diminished throughout with distant scattered rhonchi. Abdomen: Obese soft nontender nondistended normal bowel sounds Extremities: No edema Neurologic, alert oriented to person place time and situation Urinary Catheter Management: Musa: Cath Placed During This Visit: yes Reason for Continuing Indwelling Catheter: Acute Urinary Retention or Obstruction Urinary Catheter Date of Insertion: 05/23/21 Urinary Catheter Time of Insertion: 08:32 Discharge Data Studies Completed and Pending Completed Studies During Hospitalization Category Date Time Status CTA chest [CT angio chest PE protcl [id number]] Urgent Cat Scan 05/20/21 01:17 Completed XR chest 1V portable [id number] NOW Exams 05/23/21 14:37 Completed XR chest 1V portable [id number] Routine Exams 05/23/21 02:33 Completed XR chest 1V portable [id number] Routine Exams 05/24/21 07:50 Completed XR chest 1V portable [id number] Stat Exams 05/19/21 21:53 [place] [id number] Routine Ultrasound 05/24/21 Completed CV. echo complete* [id number] Routine Ultrasound 05/23/21 07:28 Completed Pending at discharge Category Date Time Status Clostridioides Difficile PCR Routine Lab 05/20/21 04:07 Ordered Enteric Bacterial Panel by PCR Routine Lab 05/20/21 04:07 Ordered Enteric Parasite Panel by PCR Routine Lab 05/20/21 04:07 Ordered Immunochemical Fecal OCB Routine Lab 05/20/21 04:07 Ordered Lactoferrin Routine Lab 05/20/21 04:07 Ordered Sputum Culture and Gram Stain Stat Lab 05/20/21 04:04 Uncollected Radiology Impressions Chest CTA 05/20/21 01:17 IMPRESSION: 1. Geographic ground-glass opacities with some crazy paving and consolidation consistent with [id number] bilateral COVID-19 pneumonia versus other pneumonia. 2. Stable CABG procedure. 3. No pulmonary embolus or aortic dissection. Chest X-Ray 05/24/21 07:50 IMPRESSION: Stable abnormal chest. Laboratory Results WBC 8.3 10^3/uL (4.0-10.0) 05/29/21 05:40 Corrected WBC Cancelled 05/27/21 05:59 RBC 3.69 10^6/uL (4.1-5.3) L 05/29/21 05:40 Hgb 9.0 g/dL (11.5-15.3) L 05/29/21 05:40 Hct 31.9 % (37.0-47.0) L 05/29/21 05:40 MCV 86.4 fl (81-99) 05/29/21 05:40 MCH 24.4 pg (28.0-34.0) L 05/29/21 05:40 MCHC 28.2 g/dL (30.0-36.0) L 05/29/21 05:40 RDW 20.6 % (12.1-15.1) H 05/29/21 05:40 Plt Count 273 10^3/cmm (130-400) 05/29/21 05:40 MPV 11.9 fL (7.4-10.4) H 05/29/21 05:40 Gran % Cancelled 05/27/21 05:59 Neut % (Auto) 81.5 % 05/29/21 05:40 Lymph % (Auto) 10.8 % 05/29/21 05:40 [place] % (Auto) 6.1 % 05/29/21 05:40 Eos % (Auto) 0.4 % 05/29/21 05:40 Baso % (Auto) 0.2 % 05/29/21 05:40 Neut # (Auto) 6.80 10^3/uL (1.8-7.7) 05/29/21 05:40 Lymph # (Auto) 0.9 10^3/uL (0.8-4.8) 05/29/21 05:40 [place] # (Auto) 0.5 10^3/uL (0.2-0.9) 05/29/21 05:40 Eos # (Auto) 0.0 10^3/uL (0.0-0.8) 05/29/21 05:40 Baso # (Auto) 0.0 10^3/uL (0.0-0.1) 05/29/21 05:40 Absolute Gran (auto) Cancelled 05/27/21 05:59 Nucleated RBC % (auto) 0.4 % 05/29/21 05:40 Nucleated RBCs # 0.0 /100WBC 05/29/21 05:40 Poikilocytosis 2+ H 05/25/21 04:25 Anisocytosis 1+ H 05/25/21 04:25 Ovalocytes 2+ H 05/25/21 04:25 Shantel Cells 1+ H 05/25/21 04:25 D-Dimer 1.36 ug/mIFEU (0-0.59) H 05/24/21 03:27 Specimen Type Arterial 05/28/21 02:54 Sample Site Radial, left 05/28/21 02:54 ABG pH 7.52 (7.35-7.45) H 05/28/21 02:54 ABG pCO2 37.2 mmHg (35-45) 05/28/21 02:54 ABG pO2 67.1 mmHg (80.0-100.0) L 05/28/21 02:54 ABG HCO3 30.5 mmol/L (22-26) H 05/28/21 02:54 ABG O2 Saturation 87.0 05/24/21 08:50 ABG Base Excess 7.1 mmol/L (-2.0-2.0) H 05/28/21 02:54 Carroll Test N/a 05/28/21 02:54 A-a O2 Gradient 33.9 mmHg (5-10) H 05/24/21 08:50 Hematocrit 27.4 % (37-47) L 05/28/21 02:54 Hgb O2 Saturation 85.9 % (95-100) L 05/24/21 08:50 Carboxyhemoglobin 0.2 %THgb (0.4-20.1) L 05/24/21 08:50 Methemoglobin 1.1 % (0.4-1.5) 05/24/21 08:50 Total Hemoglobin 9.2 g/dL (12-16) L 05/24/21 08:50 Sodium 136.0 mmol/L (131-143) 05/24/21 08:50 Potassium 3.3 mmol/L (3.5-5.0) L 05/24/21 08:50 Glucose 279.0 mg/dL (70-115) H 05/24/21 08:50 Ionized Calcium 1.2 mmol/L (1.1-1.4) 05/24/21 08:50 O2 Delivery Device Nc 05/28/21 02:54 O2 Liters/Min 5.0 % 05/28/21 02:54 FiO2 50.0 % 05/24/21 08:50 Director Economic ID [email or web address] 05/28/21 02:54 Sodium 135 mmol/L (136-145) L 05/29/21 05:40 Potassium 4.4 mmol/L (3.5-5.1) 05/29/21 05:40 Chloride 99 mmol/L (98-107) 05/29/21 05:40 Carbon Dioxide 23 mmol/L (22-29) 05/29/21 05:40 Anion Gap 17.4 (5-19) 05/29/21 05:40 BUN 13 mg/dL (6-20) 05/29/21 05:40 Creatinine 0.4 mg/dL (0.5-0.9) L 05/29/21 05:40 GFR Calculation 163.4 mL/min (90-130) H 05/29/21 05:40 Glucose 233 mg/dL (65-115) H 05/29/21 05:40 POC Glucose 375 mg/dL (70-110) H 05/29/21 11:03 Estimat Average Glucose 148 05/20/21 00:14 Hemoglobin A1c 6.8 % (4.0-6.0) H 05/20/21 00:14 Calculated Osmolality 288 mOsm/kg (285-295) 05/29/21 05:40 Lactic Acid 2.2 mmol/L (0.5-2.2) 05/20/21 00:14 Lactic Acid Cancelled 05/20/21 00:14 Lactic Acid (Sepsis) < 0.2 mmol/L (0.5-2.2) L 05/20/21 10:17 Calcium 9.6 mg/dL (8.5-10.5) 05/29/21 05:40 Phosphorus 4.4 mg/dL (2.5-4.5) 05/28/21 06:00 Magnesium 1.9 mg/dL (1.7-2.3) 05/28/21 06:00 Iron 11 ug/dL (37-145) L 05/20/21 00:14 TIBC 278 mcg/dl 05/20/21 00:14 % Saturation 3.9 % (20-50) L 05/20/21 00:14 Unsat Iron Binding 267 ug/dL (112-347) 05/20/21 00:14 Ferritin 148 ng/mL (15-150) 05/20/21 00:14 Total Bilirubin 0.8 mg/dL (0.15-1.2) 05/24/21 03:27 AST 37 U/L (0-32) H 05/24/21 03:27 ALT 19 U/L (0-33) 05/24/21 03:27 Alkaline Phosphatase 116 IU/L (35-105) H 05/24/21 03:27 Troponin T Gen 5 ng/L 22 ng/L (0-10) H 05/20/21 22:27 Troponin T Baseline 41 ng/L (0-10) H 05/20/21 00:14 Troponin T 120 Minute 24.07 ng/L (0-10) H 05/20/21 06:56 Delta Troponin T -16.93 ABS# (0-10) L 05/20/21 06:56 Troponin T Hi Sens 6Hr 20.50 ng/L (0-10) H 05/20/21 10:17 Troponin T Hi Sens 6Hr Delta -20.5 ng/L (0-12) L 05/20/21 10:17 C-Reactive Protein 17.4 mg/L (0.0-4.9) H 05/22/21 05:00 NT-Pro-B Natriuret Pep 2043 pg/mL (0-125) H 05/23/21 02:55 Total Protein 6.4 g/dL (6.6-8.7) L 05/24/21 03:27 Albumin 2.6 g/dL (3.5-5.2) L 05/24/21 03:27 Globulin 3.8 g/dL (1.3-4.6) 05/24/21 03:27 Procalcitonin 0.11 ng/mL (0-0.5) 05/22/21 05:00 TSH 1.48 uIU/mL (0.27-4.20) 05/20/21 00:14 Urine Color Yellow (Yellow) 05/20/21 04:17 Urine Appearance Clear (CLEAR) 05/20/21 04:17 Urine pH 5 (5-7) 05/20/21 04:17 Ur Specific [place] 1.005 (1.005-1.030) 05/20/21 04:17 Urine Protein Neg (Negative) 05/20/21 04:17 Urine Glucose (UA) Norm (Normal) 05/20/21 04:17 Urine Ketones Negative (Negative) 05/20/21 04:17 Urine Blood Neg (Negative) 05/20/21 04:17 Urine Nitrate Negative (Negative) 05/20/21 04:17 Urine Bilirubin Neg (Negative) 05/20/21 04:17 Urine Urobilinogen Norm mg/dL (Negative) 05/20/21 04:17 Ur Leukocyte Esterase Negative (Negative) 05/20/21 04:17 Vancomycin Trough 12.6 ug/mL (10-15) 05/25/21 17:11 Vitals Last Vital Signs Temp 98.1 F 05/29/21 15:13 Pulse 92 05/29/21 15:13 Resp 17 05/29/21 15:13 BP 111/68 05/29/21 15:13 Pulse Ox 90 05/29/21 15:13 Discharge Plan Discharge Patient Disposition: Home Condition: Stable Prescriptions: New dexamethasone 4 mg tablet 4 mg PO BID Qty: 10 0RF famotidine 40 mg tablet 40 mg PO BID Qty: 20 0RF albuterol sulfate 90 mcg/actuation HFA aerosol inhaler 2 inh inhalation Q4H PRN (Reason: shortness of breath or wheezing) Qty: 8.5 0RF Continued levothyroxine [Synthroid] 137 mcg Tablet 137 mcg PO DAILY 0RF atorvastatin 80 mg Tablet 80 mg PO DAILY 0RF aspirin 325 mg Tablet 325 mg PO DAILY 0RF garlic 100 mg Tablet 100 mg PO DAILY 0RF clopidogrel 75 mg Tablet 75 mg PO DAILY 0RF carvedilol 3.125 mg Tablet 3.125 mg PO BID 0RF Rx Instructions: must administer with a meal/food Vitamin B-12 50 mcg Tablet 50 mcg PO DAILY 0RF potassium 99 mg Tablet 99 mg PO DAILY 0RF citalopram 20 mg Tablet 20 mg PO DAILY 0RF nitroglycerin [Nitrostat] 0.4 mg Tablet, Sublingual 0.4 mg SUBLINGUAL Q5M PRN (Reason: Chest Pain) 0RF Rx Instructions: do not exceed 3 doses per episode zinc 50 mg Tablet 50 mg PO DAILY 0RF glipizide 5 mg Tablet 5 mg PO DAILY 0RF magnesium 200 mg Tablet 200 mg PO DAILY 0RF olmesartan 20 mg Tablet 20 mg PO DAILY 0RF Janumet 50-1,000 mg Tablet 1 tab PO BID 0RF ranolazine [Ranexa] 1,000 mg Tablet Extended Release 12 Hr 1,000 mg PO BID 0RF Rough And Ready 3 Fish Oil 684-1,200 mg Capsule,Delayed Release(Dr/Ec) 1 cap PO DAILY 0RF cholecalciferol (vitamin D3) [Vitamin D3] 125 mcg (5,000 unit) Tablet 125 mcg PO DAILY 0RF scopolamine base 1.5 MG 1.5 mg transdermal PRN PRN (Reason: Dizziness Or Vertigo) 0RF metoclopramide HCl [Reglan] 10 mg tablet 10 mg PO Q6H PRN (Reason: nausea and vomiting) Qty: 10 0RF Held ibuprofen 200 MG 200 mg PO PRN PRN (Reason: Muscle Pain) 0RF Hold Instructions: Resume on 06/05/21. when done with dexamethasone Discharge Orders: Discharge Order (Routine); Ordered 05/29/21 Ordered By: Balbir Diaz Other Ambulatory Orders: DME: Oxygen (Order) Location: None Selected Ordered By: Rodrigue Romero DME: Oxygen (Order) Location: None Selected Ordered By: Balbir Diaz DME: Walker (Order) Location: None Selected Ordered By: Balbir Diaz Referrals: [facility] [Other] (Please call this number and let them know you have made it home and they will set up a time to come out and visit.) [facility] [Outside] Discharge Diet: Usual diet Discharge Activity: Increase activity as tolerated Patient Instructions: Viral Pneumonia (ED), Opioid Safety Activity Restrictions/Additional Instructions: Take medication as directed. Use acetaminophen for pain and fever. Make sure to drink plenty of water with medications. Use oxygen as ordered for shortness of breath and hypoxia. Use albuterol inhaler 2 puffs every 4 hours as needed for shortness of breath or wheezing. Take dexamethasone 4 mg 1 tablet twice a day for 5 days. Follow-up with primary care for further instructions. Return to the ER for worsening symptoms such as severe chest pain or worsening shortness of breath. Discharge Attestations Time Spent in Discharge Care*: less than 30 min Quality Metrics Clinical Quality Measures [ No reported AMI, CVA or VTE this stay] Coding Level of Care Code Acute g FW DC note Diagnoses Fluid overload E87.70 Hx of CABG Z95.1 Acute respiratory distress syndrome (ARDS) due to 2019 novel coronavirus U07.1; J80 Acute on chronic respiratory failure with hypoxia J96.21 Anemia D64.9 Sepsis A41.9 Multifocal pneumonia J18.9 Diabetes E11.9
[2021-05-29 17:16] LABS: Glucose Point of Care 490 mg/dL (70-110)
[2021-05-29] MEDS: insulin lispro 100 unit/1 mL 25 UNIT SUBCUT (17:23)
== END 2021-05-29 17:38 | disposition home health service (06) | DRG 871 ==
LOC: ER 05-20 03:32 → ER IP 05-20 05:50 → ICU 05-20 15:12 → MEDSURG 05-27 04:28
PROVIDERS: Internal Medicine; Internal Medicine Pulmonary Disease; Admitting Provider Family Medicine; Emergency Provider Nurse Practitioner Family; Visit Provider Internal Medicine
DX: A41.9 Sepsis, unspecified organism (principal); U07.1 COVID-19; J12.82 Pneumonia due to coronavirus disease 2019; J80 Acute respiratory distress syndrome; I50.33 Acute on chronic diastolic (congestive) heart failure; N39.0 Urinary tract infection, site not specified; E11.9 Type 2 diabetes mellitus without complications; I25.10 Atherosclerotic heart disease of native coronary artery without angina pectoris; Z95.1 Presence of aortocoronary bypass graft; Z95.5 Presence of coronary angioplasty implant and graft; E78.5 Hyperlipidemia, unspecified; I95.9 Hypotension, unspecified; E03.9 Hypothyroidism, unspecified; D50.9 Iron deficiency anemia, unspecified; B96.20 Unspecified Escherichia coli [E. coli] as the cause of diseases classified elsewhere; B96.1 Klebsiella pneumoniae [K. pneumoniae] as the cause of diseases classified elsewhere; E83.42 Hypomagnesemia; E87.6 Hypokalemia; I11.0 Hypertensive heart disease with heart failure; Z79.84 Long term (current) use of oral hypoglycemic drugs; Z79.02 Long term (current) use of antithrombotics/antiplatelets; F41.9 Anxiety disorder, unspecified
CPT/HCPCS: 36415; 36416; 36569; 36600; 51702; 71045; 71275; 80048; 80051; 80053; 80202; 81003; 82330; 82728; 82803; 82805; 82962; 83036; 83540; 83550; 83605; 83735; 83880; 84100; 84145; 84443; 84484; 85025; 85378; 86140; 86403; 87040; 87077; 87086; 87186; 87449; 87641; 93005; 93306; 93970; 94640; 94660; 94664; 96365; 96367; 96372; 96375; 97110; 97116; 97161; 99291; C1751; C9113; J0456; J0696; J0743; J1100; J1170; J1650; J1756; J1815 ×2; J1940; J2060; J2405; J2765; J3370; J3475; J3480; J3535; J7030; J7040; J7050; J7626; Q9967